=== PATIENT | male | born 1950 | race Caucasian/White ===

== ENCOUNTER → 2020-03-08 10:39 | Outpatient (BNVA) | payer MEDICARE, MEDICAID, SELFPAY | PROVIDERS: PCP Internal Medicine; Visit Provider Internal Medicine | DX: I25.5 Ischemic cardiomyopathy (principal); I25.10 Atherosclerotic heart disease of native coronary artery without angina pectoris; I51.3 Intracardiac thrombosis, not elsewhere classified; I48.0 Paroxysmal atrial fibrillation; I65.23 Occlusion and stenosis of bilateral carotid arteries; I46.9 Cardiac arrest, cause unspecified; Z86.73 Personal history of transient ischemic attack (TIA), and cerebral infarction without residual deficits | CPT/HCPCS: Q3014 ==

== ENCOUNTER → 2020-05-29 15:12 | Outpatient (BNVA) | payer MEDICARE, MEDICAID, SELFPAY | PROVIDERS: PCP Internal Medicine; Visit Provider Internal Medicine | DX: I25.5 Ischemic cardiomyopathy (principal); I25.10 Atherosclerotic heart disease of native coronary artery without angina pectoris; I51.3 Intracardiac thrombosis, not elsewhere classified; I48.0 Paroxysmal atrial fibrillation; I65.23 Occlusion and stenosis of bilateral carotid arteries; I46.9 Cardiac arrest, cause unspecified; Z86.73 Personal history of transient ischemic attack (TIA), and cerebral infarction without residual deficits | CPT/HCPCS: 99212 ==

== ENCOUNTER → 2021-07-09 15:04 | Outpatient (BNVA) | payer MEDICARE, MEDICAID, SELFPAY | PROVIDERS: PCP Internal Medicine; Referring Provider Internal Medicine; Visit Provider Internal Medicine | DX: I25.5 Ischemic cardiomyopathy (principal); I25.10 Atherosclerotic heart disease of native coronary artery without angina pectoris; I51.3 Intracardiac thrombosis, not elsewhere classified; I48.0 Paroxysmal atrial fibrillation; I65.23 Occlusion and stenosis of bilateral carotid arteries; I46.9 Cardiac arrest, cause unspecified; Z86.73 Personal history of transient ischemic attack (TIA), and cerebral infarction without residual deficits | CPT/HCPCS: 93005; 99212 ==

== ENCOUNTER 2021-08-21 10:00 | Outpatient (REF) | payer MEDICARE, MEDICAID, SELFPAY ==
--- NOTE | ~2021-08-21 | US_ITS ---
EXAMINATION: US EXTRACRANIAL CAROTID DUPLEX, BILATERAL CLINICAL INFORMATION: Occlusion and stenosis carotid arteries bilaterally. COMPARISON: 05/02/2019 and studies dating back to 02/09/2018. TECHNIQUE: Real-time ultrasound and Doppler techniques (integrating B-mode 2-D vascular images, Doppler spectral analysis and color-flow Doppler imaging) were utilized to interrogate the extracranial carotid arteries, the vertebral arteries and proximal subclavian arteries bilaterally. The degree of stenosis is determined by criteria similar to NASCET. FINDINGS: RIGHT SIDE: 1. There is heterogeneous calcified shadowing atherosclerotic plaque seen in the bifurcation/proximal ICA region which obscures the proximal internal carotid artery over a 1.4 cm length. 2. The common carotid artery PSV proximally is 75 cm/s and distally 55 cm/s. 3. The mid internal carotid artery velocities are 183 cm/s systolic and 47 cm/s diastolic. The proximal internal carotid artery velocities could not be determined due to the shadowing plaque present. 4. The proximal external carotid artery velocity is 132 cm/s. 5. The vertebral artery is again noted to be occluded. 6. The subclavian artery waveforms are normal. LEFT SIDE: 1. There is mild heterogeneous calcified atherosclerotic plaque seen in the bifurcation/proximal ICA region. 2. The common carotid artery PSV proximally is 134 cm/s and distally 51 cm/s. 3. The proximal internal carotid artery velocities are 49 cm/s systolic and 16 cm/s diastolic. 4. The proximal external carotid artery PSV is 97 cm/s. 5. The vertebral artery shows antegrade flow. 6. The subclavian artery waveforms are normal. US/US carotid duplex BI IMPRESSION: 1. Right: The proximal internal carotid artery is not visible due to shadowing calcified plaque and therefore stenosis is being determined by the mid internal carotid artery velocities which again is seen to fall in the 50-79% stenosis category. 2. Left: Minimal, nonhemodynamically significant stenosis of the proximal left internal carotid artery corresponding to a 0-49% stenosis by velocity criteria. 3. There is no change in the category severity of disease when compared to the previous study dated . 4. Occluded right vertebral artery.
== END 2021-08-21 10:01 | disposition home or self-care (01) ==
LOC: HO.US 10:00
PROVIDERS: Visit Provider Internal Medicine
DX: I65.23 Occlusion and stenosis of bilateral carotid arteries (principal)
CPT/HCPCS: 93880

== ENCOUNTER 2022-08-20 12:36 | Outpatient (REF) | payer MEDICARE, MEDICAID, SELFPAY ==
[2022-08-20 14:39] LABS: Anion Gap 13 (12-20); Blood Urea Nitrogen 16 mg/dL (9-16); Calcium 8.8 mg/dL (8.4-10.2); Carbon Dioxide 26 mmol/L (22-29); Chloride 105 mmol/L (96-108); Estimated Glomerular Filt Rate > 60; Glucose Random 89 mg/dL (60-115); Magnesium 2.3 mg/dL (1.6-2.6); Potassium 4.2 mmol/L (3.3-5.1); Sodium 140 mmol/L (135-145)
[2022-08-20 14:43] LABS: B Type Natriuretic Peptide 205 pg/mL (<100)
== END 2022-08-20 12:37 | disposition home or self-care (01) ==
LOC: HO.LAB 12:36
PROVIDERS: PCP Internal Medicine; Visit Provider Internal Medicine
DX: I25.5 Ischemic cardiomyopathy (principal); I25.10 Atherosclerotic heart disease of native coronary artery without angina pectoris; I51.3 Intracardiac thrombosis, not elsewhere classified; I48.0 Paroxysmal atrial fibrillation; Z86.73 Personal history of transient ischemic attack (TIA), and cerebral infarction without residual deficits; Z86.74 Personal history of sudden cardiac arrest; Z79.899 Other long term (current) drug therapy
CPT/HCPCS: 36415; 80048; 83735; 83880; 93005; 99212

== ENCOUNTER 2022-11-27 14:58 | Outpatient (AMB) | payer MEDICARE, MEDICAID, SELFPAY ==
[2022-11-27 15:10] VITALS: BP 90/50; PULSE 52
--- NOTE | 2022-11-27 15:10 | MHC.OFFVIS ---
Intake Vital Signs 11/27/22 15:10 Height 5 ft 6 in BP 90/50 L Blood Pressure Location Rt brachial Pulse 52 Intake Visit Reasons: 3 mth f/up Pbx Repairer Required: No Discharge Door Operator: Discharge Door Operator Present Allergies Plasma Human Allergy (Unknown, Verified 11/27/22 15:14) unk Medication List - Last Reconciled 11/27/22 by Coco Meléndez, [employer] amiodarone 200 mg PO DAILY atorvastatin 80 mg PO DAILY 90 days baclofen 10 mg PO TID baclofen 20 mg PO TID chlorhexidine gluconate 0.12% mL PO fluticasone propionate 50 mcg/actuation sprays intranasal furosemide 20 mg PO DAILY gabapentin 300 mg PO TID metoprolol succinate ER 50 mg PO BID metoprolol tartrate 50 mg PO BID multivitamin 1 tab PO BID rivaroxaban (Xarelto) 20 mg PO QAM 90 days sacubitril-valsartan 24-26 mg (Entresto) 1 tab PO BID 90 days tamsulosin 0.4 mg PO DAILY trazodone 50 mg PO BEDTIME HPI 3 mth f/up HPI Details Aníbal is a 72-year-old male with past medical history of stroke 2010 and found to have LV thrombus at that time. He was started on anticoagulation then had GI bleed. During transfusions he had VF arrest and was resuscitated. More [place] [facility] [place] and did have VF arrest. Cardiac catheterization was then done showing significant coronary artery disease which was managed medically. He has hyperlipidemia, carotid stenosis, residual ischemic cardiomyopathy and PAF. Today he reports that he has been doing generally well since his last visit in July. He denies any concerning symptoms. He has left-sided weakness from his remote CVA. He tells me his left shoulder is dislocated knee is wearing a brace to hold it in place. He denies much discomfort. He denies chest discomfort at rest or with activity. He is mostly sedentary but tells me he is able to walk some with assistive device. His breathing is comfortable at rest. No palpitations, presyncope, syncope, falls. No PND, orthopnea or edema. No bleeding issues reported. He takes all meds as directed. [facility] Medical History Cardiac arrest Bilateral carotid artery stenosis History of stroke PAF (paroxysmal atrial fibrillation) LV (left ventricular) mural thrombus Atherosclerotic cardiovascular disease Ischemic cardiomyopathy Surgical History History of appendectomy Family History Father No problems noted. Mother No problems noted. Social History Patient Tobacco Use Status: Never used Tobacco Review of Systems Const All systems reviewed & are unremarkable except as noted in HPI and below ENT Denies dizziness Card Denies chest pain, Denies chest pain at rest, Denies chest pain with activity, Denies rapid heart rate, Denies pedal edema, Denies edema, Denies leg edema, Denies lightheadedness, Denies palpitations, Denies dyspnea, Reports dyspnea on exertion and Denies orthopnea Resp Denies cough, Denies dyspnea and Reports dyspnea on exertion GI Denies hematochezia and Denies change in stool character Musc Reports abnormal gait, Reports limited range of motion, Denies muscle cramps, Reports muscle weakness, Denies numbness, Denies radiating pain into limb, Denies stiffness and Denies tingling Neuro Reports abnormal gait, Denies dizziness, Denies numbness and Denies tingling Endo Denies palpitations Physical Exam Vital Signs: Last Vital Signs Pulse 52 11/27/22 15:10 Const Other: Frail elderly male sitting in a wheelchair, left side paralysis General: cooperative, comfortable and no acute distress Orientation/consciousness: patient oriented x3 Neck Neck: Yes normal visual inspection Resp Effort & Inspection: normal respiratory effort Auscultation: clear to auscultation bilaterally, no crackles, no rhonchi and no wheezes Cardio Other: Heart tones distant Jugular venous distension: no JVD Rate: regular rate Rhythm: regular rhythm Heart sounds: no murmurs Neuro General: patient oriented x3 Extrem Other: Left-sided paralysis, in wheelchair, brace on left forearm and hand, support brace to left shoulder General: No no pedal edema Psych Appearance: grossly normal Mental Status: mental status grossly normal Speech and movement: Normal speech and movement present Office Procedures EKG Details: Today, read by me, sinus bradycardia with first-degree AV block, possible RV hypertrophy, low voltage QRS, no change from prior EKG, rate 52, QTC 444 millisecond [id number], Complete Assessment & Plan Assessment & Plan (1) Atherosclerotic cardiovascular disease: Code(s): I25.10 - Atherosclerotic heart disease of [place] coronary artery without angina pectoris Plan: History of CAD. Recent VF arrest while at [facility] undergoing treatment for UTI. A cardiac catheterization was done on 07/11/2022 showing to fuse coronary artery disease, not well suited for PCI. Also felt to be a poor clinical candidate for coronary artery bypass grafting. Plan is to continue with medical management. He is currently denying any anginal sounding symptoms. He is mostly sedentary. His EKG done today is showing sinus bradycardia with first-degree AV block, low voltage QRS, rate 52. No significant change from prior EKG 08/20/2022. Will continue on high-dose atorvastatin with LDL goal less than 70. Continue metoprolol. He is not on aspirin as he is on Xarelto. Signs and symptoms of angina reviewed with him and he states understanding. Cardiology follow-up in 3-4 months, sooner if needed. (2) Sinus bradycardia: Code(s): R00.1 - Bradycardia, unspecified Plan: Noted on EKG today, no significant change from prior. He denies any lightheadedness or accessed weakness. He is on metoprolol XL 50 mg b.i.d. which can be continued. (3) Cardiac arrest: Code(s): I46.9 - Cardiac arrest, cause unspecified Plan: History of VF arrest in 2010 following transfusion reaction. Successfully resuscitated. Second [place] [facility] [place] for [place], electrolyte abnormalities. Successfully resuscitated. Cardiac catheterization showing diffuse coronary artery disease which will be managed medically. He was seen by the toolroom keeper who did not feel he was a good candidate for ICD placement. EKG done today showing QTC 444 milliseconds. (4) History of stroke: Code(s): Z86.73 - Personal history of transient ischemic attack (TIA), and cerebral infarction without residual deficits Plan: CVA 2010 with left-sided weakness related to LV thrombus. He was started on anticoagulation at that time. Most recent echo is not showing any LV thrombus (5) LV (left ventricular) mural thrombus: Code(s): I51.3 - Intracardiac thrombosis, not elsewhere classified Plan: Resolved. He continues on anticoagulation for PAF history (6) PAF (paroxysmal atrial fibrillation): Code(s): I48.0 - Paroxysmal atrial fibrillation Plan: History of paroxysmal atrial fibrillation. Being treated with rhythm control. Currently on amiodarone 200 mg daily metoprolol XL 50 mg b.i.d.. EKG today showing sinus bradycardia, first-degree AV block, rate 52. He denies any recent heart palpitations. He is on Xarelto for anticoagulation. No bleeding issues reported. Labs from 08/20/2022 showed potassium 4.2, creatinine 1.04, magnesium 2.3. Will check labs for amiodarone monitoring. (7) Ischemic cardiomyopathy: Code(s): I25.5 - Ischemic cardiomyopathy Plan: History of CAD and ischemic cardiomyopathy. Most recent echo showing EF 15-20%, with wall motion abnormality. On examination today he does not appear fluid overloaded. Will have him continue on low-dose Lasix. Continue metoprolol XL and Entresto for neurohormonal modulation. Recommend labs twice yearly. Blood pressure is on the low side, asymptomatic. No med changes made Orders: Orders TSH reflex Free T4 2 Months I48.0 - Paroxysmal atrial fibrillation Comprehensive Met. Panel 2 Months I48.0 - Paroxysmal atrial fibrillation Coding Level of Care Code Est Pt Level 4 (41689) Diagnoses Atherosclerotic cardiovascular disease I25.10 Sinus bradycardia R00.1 Cardiac arrest I46.9 History of stroke Z86.73 LV (left ventricular) mural thrombus I51.3 PAF (paroxysmal atrial fibrillation) I48.0 Ischemic cardiomyopathy I25.5 CPT Codes EKG - CPT: 43429-[id number], Complete ([id number]) Time Spent (min) 28
== END 2022-11-27 15:47 | disposition home or self-care (01) ==
PROVIDERS: PCP Internal Medicine; Visit Provider Nurse Practitioner Family
DX: I25.10 Atherosclerotic heart disease of native coronary artery without angina pectoris (principal); R00.1 Bradycardia, unspecified; I46.9 Cardiac arrest, cause unspecified; Z86.73 Personal history of transient ischemic attack (TIA), and cerebral infarction without residual deficits; I51.3 Intracardiac thrombosis, not elsewhere classified; I48.0 Paroxysmal atrial fibrillation; I25.5 Ischemic cardiomyopathy
CPT/HCPCS: 93010; 99214

== ENCOUNTER → 2022-11-27 14:58 | Outpatient (BNVA) | payer MEDICARE, MEDICAID, SELFPAY | PROVIDERS: PCP Internal Medicine; Visit Provider Nurse Practitioner Family | DX: I25.10 Atherosclerotic heart disease of native coronary artery without angina pectoris (principal); R00.1 Bradycardia, unspecified; I48.0 Paroxysmal atrial fibrillation; I25.5 Ischemic cardiomyopathy; Z79.01 Long term (current) use of anticoagulants; Z79.899 Other long term (current) drug therapy; Z86.73 Personal history of transient ischemic attack (TIA), and cerebral infarction without residual deficits; Z86.74 Personal history of sudden cardiac arrest | CPT/HCPCS: 93005; 99212 ==

== ENCOUNTER 2023-02-26 15:54 | Outpatient (AMB) | payer MEDICARE, MEDICAID, SELFPAY ==
--- NOTE | 2023-02-26 16:03 | A.OFFVIS_ITS ---
Intake Vital Signs 02/26/23 16:04 Height 5 ft 6 in BP 100/50 L Blood Pressure Location Rt brachial Position Sitting Pulse 52 Pulse Source Monitor Intake Visit Reasons: 3 month follow up Allergies Plasma Human Allergy (Unknown, Verified 02/26/23 16:05) unk HPI 3 month follow up HPI Details Aníbal is a 72-year-old male with past medical history of stroke 2010 and found to have LV thrombus at that time. He was started on anticoagulation then had GI bleed. During transfusions he had VF arrest and was resuscitated. More [place] [facility] [place], [place] abnormalities and did have VF arrest with successful resuscitation. Cardiac catheterization was then done showing significant coronary artery disease which was managed medically. He was deemed not a good candidate for ICD, PCI or Coronary artery bypass grafting. He has hyperlipidemia, carotid stenosis, residual ischemic cardiomyopathy and PAF. Today he reports that he has been doing well since his last visit in October. He denies any concerning symptoms. He has left-sided weakness from his remote CVA. He tells me his left shoulder is dislocated knee is wearing a brace to hold it in place. He denies much discomfort. He denies chest discomfort at rest or with activity. He is mostly sedentary and uses wheelchair. His breathing is comfortable at rest. No palpitations, presyncope, syncope, falls. No PND, orthopnea or edema. No bleeding issues reported. He takes all meds as directed. Staff memeber from his living facility present. [facility] Medical History Cardiac arrest Bilateral carotid artery stenosis History of stroke PAF (paroxysmal atrial fibrillation) LV (left ventricular) mural thrombus Atherosclerotic cardiovascular disease Ischemic cardiomyopathy Surgical History History of appendectomy Family History Father No problems noted. Mother No problems noted. Social History Patient Tobacco Use Status: Never used Tobacco Review of Systems Const All systems reviewed & are unremarkable except as noted in HPI and below ENT Denies dizziness Card Denies chest pain, Denies chest pain at rest, Denies chest pain with activity, Denies rapid heart rate, Denies pedal edema, Denies edema, Denies leg edema, Denies lightheadedness, Denies palpitations, Denies dyspnea, Denies dyspnea on exertion and Denies orthopnea Resp Denies cough, Denies dyspnea and Denies dyspnea on exertion GI Denies hematochezia and Denies change in stool character Musc Details: left weakness Reports abnormal gait, Reports limited range of motion, Reports muscle weakness, Denies numbness, Denies radiating pain into limb, Denies stiffness and Denies tingling Neuro Reports abnormal gait, Denies dizziness, Denies numbness and Denies tingling Endo Denies palpitations Physical Exam Const General: cooperative, healthy appearing, comfortable and no acute distress Orientation/consciousness: patient oriented x3 Neck Neck: Yes normal visual inspection Resp Effort & Inspection: normal respiratory effort Auscultation: clear to auscultation bilaterally, no crackles, no rales, no rhonchi and no wheezes Cardio Jugular venous distension: no JVD Rate: regular rate Rhythm: regular rhythm Heart sounds: S1 normal heart sound present, S2 normal heart sound present, no murmurs and no rubs Neuro General: patient oriented x3 Extrem General: Yes normal to inspection and No no pedal edema Psych Appearance: grossly normal Mental Status: mental status grossly normal Speech and movement: Normal speech and movement present Office Procedures EKG Details: Today, read by me, sinus bradycardia, first-degree AV block, incomplete right bundle branch block, inferior Q-waves, can not exclude anterior lateral infarct, low-voltage QRS, JT index 117, mildly prolonged, rate 52 [id number], Complete Assessment & Plan Assessment & Plan (1) Atherosclerotic cardiovascular disease: Code(s): I25.10 - Atherosclerotic heart disease of [place] coronary artery without angina pectoris Plan: History of CAD. Recent VF arrest while at [facility] undergoing treatment for UTI. A cardiac catheterization was done on 07/11/2022 showing severe diffuse coronary artery disease, not well suited for PCI. Also felt to be a poor clinical candidate for coronary artery bypass grafting. Plan is to continue with medical management. He is currently denying any anginal sounding symptoms. He is mostly sedentary. His EKG done today is showing sinus bradycardia with first-degree AV block, low voltage QRS, rate 52 -no significant change from last EKG. Will continue on high-dose atorvastatin with LDL goal less than 70. Continue metoprolol. He is not on aspirin as he is on Xarelto. Signs and symptoms of angina reviewed with him and he states understanding. Checking labs today including CMP, CBC, BNP and TSH. Plan to call him for any significant abnormalities. Cardiology follow-up in 6 months, sooner if needed. (2) Sinus bradycardia: Code(s): R00.1 - Bradycardia, unspecified Plan: Noted on EKG today, no significant change from prior. He denies any lightheadedness or accessed weakness. He is on metoprolol XL 50 mg b.i.d. which can be continued. (3) Cardiac arrest: Code(s): I46.9 - Cardiac arrest, cause unspecified Plan: History of VF arrest in 2010 following transfusion reaction. Successfully resuscitated. [place] [facility] [place] for [place], electrolyte abnormalities. Successfully resuscitated. Cardiac catheterization showing diffuse coronary artery disease which will be managed medically. He was seen by the senior copywriter who did not feel he was a good candidate for ICD placement. EKG done today showing JT index 117, which is prolonged. Checking labs as above. He is on amiodarone which can prolong QT interval however he needs this medication to help prevent VF. (4) History of stroke: Code(s): Z86.73 - Personal history of transient ischemic attack (TIA), and cerebral infarction without residual deficits Plan: CVA 2010 with left-sided weakness related to LV thrombus. He was started on anticoagulation at that time. Most recent echo is not showing any LV thrombus (5) LV (left ventricular) mural thrombus: Code(s): I51.3 - Intracardiac thrombosis, not elsewhere classified Plan: Resolved. He continues on anticoagulation for PAF history (6) PAF (paroxysmal atrial fibrillation): Code(s): I48.0 - Paroxysmal atrial fibrillation Plan: History of paroxysmal atrial fibrillation. Being treated with rhythm control. Currently on amiodarone 200 mg daily metoprolol XL 50 mg b.i.d.. EKG today showing sinus bradycardia, first-degree AV block, rate 52. He denies any recent heart palpitations. He is on Xarelto for anticoagulation. No bleeding issues reported. Labs from 08/20/2022 showed potassium 4.2, creatinine 1.04, magnesium 2.3. Will check labs for amiodarone monitoring. (7) Ischemic cardiomyopathy: Code(s): I25.5 - Ischemic cardiomyopathy Plan: History of CAD and ischemic cardiomyopathy. Most recent echo showing EF 15-20%, with wall motion abnormality. On examination today he does not appear fluid overloaded. Will have him continue on low-dose Lasix. Continue metoprolol XL and Entresto for neurohormonal modulation. Recommend labs twice yearly. Blood pressure is on the low side, asymptomatic. No med changes made Plan Time spent on chart review, documentation, interview and assessment Orders: Orders Complete Blood Count Auto Diff Today I48.0 - Paroxysmal atrial fibrillation B Type Natriuretic Peptide Today I25.5 - Ischemic cardiomyopathy Coding Level of Care Code Est Pt Level 4 (15822) Diagnoses Atherosclerotic cardiovascular disease I25.10 Sinus bradycardia R00.1 Cardiac arrest I46.9 History of stroke Z86.73 LV (left ventricular) mural thrombus I51.3 PAF (paroxysmal atrial fibrillation) I48.0 Ischemic cardiomyopathy I25.5 CPT Codes EKG - CPT: [id number], Complete ([id number]) Time Spent (min) 28
[2023-02-26 16:04] VITALS: BP 100/50; PULSE 52
== END 2023-02-26 16:33 | disposition home or self-care (01) ==
LOC: HO.HCS 15:54
PROVIDERS: PCP Internal Medicine; Visit Provider Nurse Practitioner Family
DX: I25.10 Atherosclerotic heart disease of native coronary artery without angina pectoris (principal); R00.1 Bradycardia, unspecified; I46.9 Cardiac arrest, cause unspecified; Z86.73 Personal history of transient ischemic attack (TIA), and cerebral infarction without residual deficits; I51.3 Intracardiac thrombosis, not elsewhere classified; I48.0 Paroxysmal atrial fibrillation; I25.5 Ischemic cardiomyopathy
CPT/HCPCS: 93010; 99214

== ENCOUNTER 2023-02-26 15:54 | Outpatient (REF) | payer MEDICARE, MEDICAID, SELFPAY ==
[2023-02-26 16:47] LABS: MANUAL DIFF FLAG NO
[2023-02-26 17:16] LABS: Basophils Absolute Auto 0.1 X10*3/uL (0.0-0.2); Basophils Percent Auto 0.7 % (0-2); Eosinophils Absolute Auto 0.2 X10*3/uL (0.0-0.4); Eosinophils Percent Auto 2.2 % (0-4); Hematocrit 39.5 % (42.0-52.0); Hemoglobin 13.2 g/dl (14.0-18.0); Imm Gran Abs Auto 0.05 X10*3/uL (0.00-0.03); Imm Gran Pct Auto 0.7 % (0.0-0.4); Lymphocytes Absolute Auto 1.9 X10*3/uL (1.2-4.9); Lymphocytes Percent Auto 24.6 % (20-40); Mean Corpuscular HGB Conc 33.4 g/dl (31.0-36.0); Mean Corpuscular Hemoglobin 33.1 pg (27.0-33.0); Mean Platelet Volume 10.1 fL (9.4-12.4); Monocytes Absolute Auto 0.6 X10*3/uL (0.1-1.2); Neutrophils Absolute Auto 4.9 x10*3/uL (2.0-8.3); Neutrophils Percent Auto 63.8 % (45-73); Platelet Count 250 X10*3/uL (160-400); Red Blood Count 3.99 X10*6/uL (4.60-5.80); Red Cell Distribution Width 15.9 % (11.0-16.0); White Blood Count 7.6 X10*3/uL (4.8-10.8)
[2023-02-26 17:38] LABS: B Type Natriuretic Peptide 338 pg/mL (<100)
[2023-02-26 17:45] LABS: Alanine Aminotransferase 19 U/L (0-40); Albumin Level 3.4 g/dL (3.5-5.0); Alkaline Phosphatase 64 U/L (39-117); Anion Gap 13 (12-20); Aspartate Amino Transferase 18 U/L (5-37); Bilirubin Total 0.3 mg/dL (0.0-1.0); Blood Urea Nitrogen 16 mg/dL (9-16); Calcium 8.8 mg/dL (8.4-10.2); Carbon Dioxide 28 mmol/L (22-29); Chloride 102 mmol/L (96-108); Estimated Glomerular Filt Rate 59; Glucose Random 87 mg/dL (60-115); Potassium 4.5 mmol/L (3.3-5.1); Sodium 138 mmol/L (135-145)
[2023-02-26 18:03] LABS: TSH reflex Free T4 2.42 uIU/mL (0.32-4.0)
== END 2023-02-26 15:55 | disposition home or self-care (01) ==
LOC: HO.LAB 15:54
PROVIDERS: PCP Internal Medicine; Visit Provider Nurse Practitioner Family
DX: I48.0 Paroxysmal atrial fibrillation (principal); I25.5 Ischemic cardiomyopathy; I25.10 Atherosclerotic heart disease of native coronary artery without angina pectoris; I46.9 Cardiac arrest, cause unspecified; R00.1 Bradycardia, unspecified; I51.3 Intracardiac thrombosis, not elsewhere classified; I69.354 Hemiplegia and hemiparesis following cerebral infarction affecting left non-dominant side
CPT/HCPCS: 36415; 80053; 83880; 84443; 85025; 93005; 99212

== ENCOUNTER 2023-10-14 12:28 | Outpatient (AMB) | payer MEDICARE, MEDICAID, SELFPAY ==
[2023-10-14 12:32] VITALS: BP 90/50; PULSE 50
--- NOTE | 2023-10-14 12:32 | A.OFFVIS_ITS ---
Vital Signs 10/14/23 12:32 Height 5 ft 6 in BMI Reason not done Patient refused/unable BP 90/50 L Blood Pressure Location Rt brachial Position Sitting Pulse 50 Intake Visit Reasons: 6 month f/u Equipment Installation Professional Required: No Automotive Refinisher: Automotive Refinisher Present Accompanied by: Other Relationship Allergies Plasma Human Allergy (Unknown, Verified 02/26/23 16:05) unk Medication List - Last Reconciled 10/14/23 by Audi Goddard MD acetaminophen ER (Tylenol Arthritis Pain) 650 mg PO ONCE PRN amiodarone 200 mg PO DAILY atorvastatin 80 mg PO DAILY 90 days baclofen 10 mg PO TID chlorhexidine gluconate 0.12% mL PO docusate sodium (Colace) 100 mg PO BID fluticasone propionate 50 mcg/actuation sprays intranasal furosemide (Lasix) 20 mg PO BID gabapentin 300 mg PO TID loratadine (Claritin) 10 mg PO DAILY PRN metoprolol tartrate 50 mg PO BID multivitamin 1 tab PO BID rivaroxaban (Xarelto) 20 mg PO QAM sacubitril-valsartan 24-26 mg (Entresto) 1 tab PO BID 90 days tamsulosin 0.8 mg PO DAILY trazodone 50 mg PO BEDTIME HPI Comments Details: Aníbal returns for follow-up. To recall, he has a very complex cardiac history. He had a stroke in 2010. At that time, echocardiogram had revealed LV apical thrombus. He was on anticoagulation with warfarin. Then was rehospitalized a few months later at [facility] [place] GI bleeding while on warfarin. In that context, he underwent transfusions following which he developed ventricular fibrillation and cardiac arrest. Then successfully resuscitated. In 2022, another hospitalization at [facility]. It seems that he had hospitalization for UTI symptoms and in that context had metabolic abnormalities. Subsequently, had VFib arrest. Then successfully resuscitated and he underwent cardiac catheterization showing significant CAD as well as cardiomyopathy. Any case, he felt to be a poor candidate for anything and hence just treated conservatively. Since last seen, he states he is feeling just about the same. No further hospitalizations or any cardiac symptoms. [facility] Medical History Cardiac arrest Bilateral carotid artery stenosis History of stroke PAF (paroxysmal atrial fibrillation) LV (left ventricular) mural thrombus Atherosclerotic cardiovascular disease Ischemic cardiomyopathy Surgical History History of appendectomy Family History Father No problems noted. Mother No problems noted. Social History Alcohol intake: never Patient Tobacco Use Status: Never used Tobacco Review of Systems Const Denies chills, Denies fatigue, Denies fever(s), Denies weight gain and Denies weight loss ENT Denies dizziness Card Denies chest pain, Denies leg edema, Denies lightheadedness, Denies palpitations, Denies dyspnea on exertion, Denies orthopnea and Denies other Resp Denies cough and Denies dyspnea on exertion GI Denies hematochezia and Denies change in stool character Musc Denies abnormal gait, Denies muscle weakness, Denies numbness, Denies radiating pain into limb and Denies tingling Neuro Denies abnormal gait, Denies dizziness, Denies numbness and Denies tingling Endo Denies fatigue and Denies palpitations Physical Exam Vital Signs: Last Vital Signs Pulse 50 10/14/23 12:32 BP 90/50 L 10/14/23 12:32 Const General: comfortable and no acute distress Orientation/consciousness: patient oriented x3 HEENT Other: Unremarkable Head: Yes normal to inspection Neck Neck: Yes normal visual inspection Chest Chest palpation & inspection: normal inspection of the chest Resp Auscultation: clear to auscultation bilaterally Cardio Palpation: normal PMI Heart sounds: S1 normal heart sound present, S2 normal heart sound present, no gallops, no murmurs and no rubs GI Palpation (GI): Soft to palpation Back/Spine/Pelvis Other: unremarkable Skin General skin exam: no rashes or lesions noted Neuro General: patient oriented x3 Extrem General: Yes normal to inspection Psych Mental Status: mental status grossly normal Office Procedures EKG Details: EKG with sinus bradycardia, 50/Min; old inferior infarct and anterolateral infarct; top [place]. [id number], Complete Assessment & Plan Assessment & Plan (1) Ischemic cardiomyopathy: Code(s): I25.5 - Ischemic cardiomyopathy Category: Medical Plan: Last echocardiogram from [facility]- LVEF 15-20% including several wall motion abnormalities. Clinically, he does not have any clear heart failure symptoms or signs. Can remain on the current regimen which is fairly reasonable considering his comorbidities. Beta-blockers, Entresto, furosemide. Blood pressure is already low. Do not think he can tolerate anything further-like spironolactone or Farxiga. (2) Atherosclerotic cardiovascular disease: Code(s): I25.10 - Atherosclerotic heart disease of [place] coronary artery without angina pectoris Category: Medical Plan: Cardiac catheterization from 06/2022 shows severe diffuse coronary disease not suitable for PCI and also poor candidate for CABG. Hence more medical therapy only. He does not have any angina. Continue beta-blockers and statins. (3) LV (left ventricular) mural thrombus: Code(s): I51.3 - Intracardiac thrombosis, not elsewhere classified Category: Medical Plan: This was documented on echocardiogram in 2010. Most recent study with no residual thrombus. (4) PAF (paroxysmal atrial fibrillation): Code(s): I48.0 - Paroxysmal atrial fibrillation Category: Medical Plan: In sinus rhythm. Continue anticoagulation. (5) Cardiac arrest: Code(s): I46.9 - Cardiac arrest, cause unspecified Category: Medical Plan: He has had ventricular fibrillation 2010 suspected to be from a transfusion reaction. More recently another episode in the setting of electrolyte abnormalities. Again resuscitated. He remains on amiodarone. Already, seen by EP who did not think he is a good ICD candidate. Last TSH within normal limits. Plan Will request labs from PCP. Coding Level of Care Code Est Pt Level 4 (54390) Diagnoses Ischemic cardiomyopathy I25.5 Atherosclerotic cardiovascular disease I25.10 LV (left ventricular) mural thrombus I51.3 PAF (paroxysmal atrial fibrillation) I48.0 Cardiac arrest I46.9 CPT Codes EKG - CPT: 90765-[id number], Complete ([id number])
== END 2023-10-14 13:14 | disposition home or self-care (01) ==
PROVIDERS: PCP Internal Medicine; Visit Provider Internal Medicine
DX: I25.5 Ischemic cardiomyopathy (principal); I25.10 Atherosclerotic heart disease of native coronary artery without angina pectoris; I51.3 Intracardiac thrombosis, not elsewhere classified; I48.0 Paroxysmal atrial fibrillation; I46.9 Cardiac arrest, cause unspecified
CPT/HCPCS: 93010; 99214

== ENCOUNTER → 2023-10-14 12:28 | Outpatient (BNVA) | payer MEDICARE, MEDICAID, SELFPAY | PROVIDERS: PCP Internal Medicine; Visit Provider Internal Medicine | DX: I25.5 Ischemic cardiomyopathy (principal); I25.10 Atherosclerotic heart disease of native coronary artery without angina pectoris; I51.3 Intracardiac thrombosis, not elsewhere classified; I48.0 Paroxysmal atrial fibrillation; Z86.73 Personal history of transient ischemic attack (TIA), and cerebral infarction without residual deficits; Z79.01 Long term (current) use of anticoagulants; Z86.74 Personal history of sudden cardiac arrest | CPT/HCPCS: 93005; 99212 ==

== ENCOUNTER 2024-12-22 10:54 | Outpatient (AMB) | payer MEDICARE, MEDICAID, SELFPAY ==
--- NOTE | 2024-12-22 11:04 | MHC.OFFVIS ---
Vital Signs 12/22/24 11:11 BP 90/60 Blood Pressure Location Rt brachial Position Sitting Pulse 76 Pulse Source Monitor Intake Visit Reasons: fu / med refills Ultrasound Specialist Required: No Electronic Industrial Controls Mechanic: Electronic Industrial Controls Mechanic Present Accompanied by: Self / Same As Patient Allergies Plasma Human Allergy (Unknown, Verified 02/26/23 16:05) unk Medication List - Last Reconciled 12/22/24 by Audi Goddard MD acetaminophen ER (Tylenol Arthritis Pain) 650 mg PO ONCE PRN baclofen 10 mg PO TID chlorhexidine gluconate 0.12% mL PO dapagliflozin propanediol (Farxiga) 10 mg PO DAILY docusate sodium (Colace) 100 mg PO BID ezetimibe (Zetia) 10 mg PO DAILY furosemide (Lasix) 20 mg PO BID gabapentin 400 mg PO TID loratadine (Claritin) 10 mg PO DAILY PRN mexiletine 300 mg PO Q8H multivitamin 1 tab PO BID rivaroxaban (Xarelto) 20 mg PO QAM sacubitril-valsartan 24-26 mg (Entresto) 1 tab PO BID 90 days spironolactone 25 mg PO DAILY HPI Comments Details: Aníbal returns for follow-up. To recall, he has a very complex cardiac history. He had a stroke in 2010. At that time, echocardiogram had revealed LV apical thrombus. He was on anticoagulation with warfarin. Then was rehospitalized a few months later at [facility] for GI bleeding while on warfarin. In that context, he underwent transfusions following which he developed ventricular fibrillation and cardiac arrest. Then successfully resuscitated. In 2022, another hospitalization at [facility]. He had hospitalization for UTI symptoms and in that context had metabolic abnormalities. Subsequently, had VFib arrest. Then successfully resuscitated and he underwent cardiac catheterization showing significant CAD as well as cardiomyopathy. Any case, he felt to be a poor candidate for anything and hence just treated conservatively. Over the last year or so, he has had numerous hospitalizations to [facility]. Very difficult to put all this together but from what I can gather, he was seen by EP and it seems that there was question of pulmonary infiltrates and hence amiodarone was stopped and mexiletine was started. Currently, he states he is generally feeling okay. No specific cardiac symptoms. [facility] Medical History Cardiac arrest Bilateral carotid artery stenosis History of stroke PAF (paroxysmal atrial fibrillation) LV (left ventricular) mural thrombus Atherosclerotic cardiovascular disease Ischemic cardiomyopathy Surgical History History of appendectomy Family History Father No problems noted. Mother No problems noted. Social History Alcohol intake: never Patient Tobacco Use Status: Never used Tobacco Review of Systems Const Denies chills, Denies fatigue, Denies fever(s), Denies frequent falls, Denies weakness, Denies weight gain and Denies weight loss ENT Denies dizziness Card Denies chest pain, Denies leg edema, Denies lightheadedness, Denies palpitations, Denies dyspnea and Denies dyspnea on exertion Resp Denies cough, Denies dyspnea and Denies dyspnea on exertion GI Denies hematochezia Musc Denies abnormal gait, Denies muscle weakness, Denies numbness, Denies radiating pain into limb and Denies tingling Neuro Denies abnormal gait, Denies dizziness, Denies frequent falls, Denies numbness, Denies tingling and Denies weakness Endo Denies fatigue and Denies palpitations Physical Exam Vital Signs: Last Vital Signs Pulse 76 12/22/24 11:11 BP 90/60 12/22/24 11:11 Const General: comfortable and no acute distress Orientation/consciousness: patient oriented x3 HEENT Other: Unremarkable Head: Yes normal to inspection Neck Neck: Yes normal visual inspection Chest Chest palpation & inspection: normal inspection of the chest Resp Auscultation: clear to auscultation bilaterally Cardio Palpation: normal PMI Heart sounds: S1 normal heart sound present, S2 normal heart sound present, no gallops, no murmurs and no rubs GI Palpation (GI): Soft to palpation Back/Spine/Pelvis Other: unremarkable Skin General skin exam: no rashes or lesions noted Neuro General: patient oriented x3 Extrem General: Yes normal to inspection Psych Mental Status: mental status grossly normal Office Procedures EKG Details: EKG with underlying sinus rhythm at 76/Min; right bundle-branch block pattern; old inferior infarct. cannot exclude anterolateral infarct; borderline AK prolongation to 208 milliseconds; corrected QT is 490 milliseconds. [id number], Complete Assessment & Plan Assessment & Plan (1) Ischemic cardiomyopathy: Code(s): I25.5 - Ischemic cardiomyopathy Category: Medical Plan: Several hospitalizations and med changes at [facility]. Nothing further made today. In the most recent echocardiogram from July, LVEF 39% with wall motion abnormalities from underlying coronary disease. No significant valvular findings. (2) Atherosclerotic cardiovascular disease: Code(s): I25.10 - Atherosclerotic heart disease of [place] coronary artery without angina pectoris Category: Medical Plan: Cardiac catheterization from 06/2022 shows severe diffuse coronary disease not suitable for PCI and also poor candidate for CABG. Hence more medical therapy only. He does not have any angina. Wall was on statins in the past but currently listed to be on Zetia. (3) LV (left ventricular) mural thrombus: Code(s): I51.3 - Intracardiac thrombosis, not elsewhere classified Category: Medical Plan: This was documented on echocardiogram in 2010. No recent issues in this regard. (4) PAF (paroxysmal atrial fibrillation): Code(s): I48.0 - Paroxysmal atrial fibrillation Category: Medical Plan: In sinus rhythm. Continue anticoagulation. (5) Cardiac arrest: Code(s): I46.9 - Cardiac arrest, cause unspecified Category: Medical Plan: He has had ventricular fibrillation 2010 suspected to be from a transfusion reaction. Then another episode in the setting of electrolyte abnormalities. Again resuscitated. He was on amiodarone but it seems he was switched to mexiletine by EP. With regard to further management, should follow up with EP, Dr. Akers from [facility]. Plan Due to numerous hospitalizations at [facility] and inpatient management generally through [facility] and PCP being at [place], and not being up-to-date with regular developments and med changes, labs etc., recommend that patient consolidate all his medical care through [place] and switches to [facility]. Message sent to Dr. Akers by [place] text. Total time spent including review of [facility] records, counseling, documentation, coordination of care-60 minutes. Coding Level of Care Code Est Pt Level 5 (64847) Complex EM visit Add On G2211 Diagnoses Ischemic cardiomyopathy I25.5 Atherosclerotic cardiovascular disease I25.10 LV (left ventricular) mural thrombus I51.3 PAF (paroxysmal atrial fibrillation) I48.0 Cardiac arrest I46.9 CPT Codes EKG - CPT: 84291-[id number], Complete ([id number])
[2024-12-22 11:11] VITALS: BP 90/60; PULSE 76
--- OUTSIDE RECORDS SUMMARY | 2024-12-22 13:28 | XMS_ITS | Encounter Summary ---
Author Organization [facility] Address [address] [place] [id number] Care Team Providers Care Crm Campaign Manager Name Role Phone Fidel Davis MD Primary Care Provider [phone] Encounter Details Date Type Department Care Team (Late Contact Info) Description 03/03/2024 Lab Requisition [facility] - Main Lab [address] [facility] [place] [id number] Jono Mao MD [address] [place], [place] [id number] Unspecified diastolic (congestive) heart failure (CMS/HCC V24, CMS/HCC V28); Acute kidney failure, unspecified (CMS/HCC V24); Pneumonitis due to inhalation of food and vomit (CMS/HCC V24, CMS/HCC V28); Paroxysmal atrial fibrillation ([facility] V24, [facility]/HCC V28) Social History Tobacco Use Types Packs/Day Years Used Date Smoking Tobacco: Former Cigarettes Smokeless Tobacco: Never Alcohol Use Standard Drinks/Week Comments Not Currently 0 (1 standard drink = 0.6 oz pur e alcohol) Sex and Gender Information Value Date Recorded Sex Assigned at Not on file Legal Sex Male 9:47 PM EST Gender Identity Not on file Sexual Orientation Not on file documented as of this encounter Plan of Treatment Upcoming Encounters Date Type Department Care Team (Late Contact Info) Description 05/23/2025 4:00 PM EDT Office Visit Adult Medicine [address] [phone] Fidel Davis MD [address] [place] [address] documented as of this encounter Procedures Procedure Name Priority Date/Time Associated Diagnosis Comments PROTHROMBIN TIME WITH INR Routine 03/03/2024 5:18 AM EST Unspecified diastolic (congestive) heart failure (CMS/HCC) Acute kidney failure, unspecified (CMS/HCC) Pneumonitis due to inhalation of food and vomit (CMS/HCC) Paroxysmal atrial fibrillation (CMS/HCC) COMPLETE BLOOD COUNT Routine 03/03/2024 5:18 AM EST Unspecified diastolic (congestive) heart failure (CMS/HCC) Acute kidney failure, unspecified (CMS/HCC) Pneumonitis due to inhalation of food and vomit (CMS/HCC) Paroxysmal atrial fibrillation (CMS/HCC) COMPREHENSIVE METABOLIC PANEL Routine 03/03/2024 5:18 AM EST Unspecified diastolic (congestive) heart failure (CMS/HCC) Acute kidney failure, unspecified (CMS/HCC) Pneumonitis due to inhalation of food and vomit (CMS/HCC) Paroxysmal atrial fibrillation (CMS/HCC) documented in this encounter Results * (ABNORMAL) Comprehensive metabolic panel (03/03/2024 5:18 AM EST) Sodium 137 133 - 145 mmol/L LAB CHEMISTRY METHOD 03/03/2024 12:42 PM [facility] Potassium 5.1 3.5 - 5.5 mmol/L LAB CHEMISTRY METHOD 03/03/2024 12:42 PM [facility] Chloride 103 96 - 110 mmol/L LAB CHEMISTRY METHOD 03/03/2024 12:42 PM [facility] CO2 30 21 - 32 mmol/L LAB CHEMISTRY METHOD 03/03/2024 12:42 PM [facility] Anion Gap 4 3 - 11 LAB CHEMISTRY METHOD 03/03/2024 12:42 PM [facility] Glucose 74 70 - 100 mg/dL LAB CHEMISTRY METHOD 03/03/2024 12:42 PM [facility] BUN 21 5 - 25 mg/dL LAB CHEMISTRY METHOD 03/03/2024 12:42 PM [facility] Creatinine 1.28 0.70 - 1.30 mg/dL LAB CHEMISTRY METHOD 03/03/2024 12:42 PM [facility] eGFR 58(L) >=60 mL/min/1. 73m2 LAB CHEMISTRY METHOD 03/03/2024 12:42 PM [facility] Comment:Calculation based on the Chronic Kidney Disease Epidemiology Collaboration (CKD-EPI) equation refit without adjustment for race. BUN/Creatinine Ratio 16.4 LAB CHEMISTRY METHOD 03/03/2024 12:42 PM [facility] Calcium 8.4(L) 8.5 - 10.5 mg/dL LAB CHEMISTRY METHOD 03/03/2024 12:42 PM [facility] AST (SGOT) 19 10 - 42 unit/L LAB CHEMISTRY METHOD 03/03/2024 12:42 PM [facility] ALT (SGPT) 27 10 - 60 unit/L LAB CHEMISTRY METHOD 03/03/2024 12:42 PM [facility] Alkaline Phosphatase 75 42 - 121 unit/L LAB CHEMISTRY METHOD 03/03/2024 12:42 PM [facility] Total Protein 6.5 6.0 - 8.0 g/dL LAB CHEMISTRY METHOD 03/03/2024 12:42 PM [facility] Albumin 2.7(L) 3.2 - 5.0 g/dL LAB CHEMISTRY METHOD 03/03/2024 12:42 PM [facility] Total Bilirubin 0.3 0.0 - 1.4 mg/dL LAB CHEMISTRY METHOD 03/03/2024 12:42 PM [facility] Blood Venous blood specimen / Unknown Venipuncture / Unknown 03/03/2024 5:18 AM EST 03/03/2024 10:00 AM EST us Jono Mao MD LAB BLOOD ORDERABLES Final Resul t Performing Organization Address City/[facility]/ZIP Co de Phone Number [facility] [address] [place] [address], [place] [phone] * (ABNORMAL) Prothrombin time with INR (03/03/2024 5:18 AM EST) Protime 23.3(H) 10.6 - 13.9 sec LAB COAGULATION METHOD 03/03/2024 11:24 AM EST [facility] INR 1.9 LAB COAGULATION METHOD 03/03/2024 11:24 AM [facility] Blood Venous blood specimen / Unknown Venipuncture / Unknown 03/03/2024 5:18 AM EST 03/03/2024 10:00 AM EST us Jono Mao MD LAB BLOOD ORDERABLES Final Resul t Performing Organization Address City/[facility]/ZIP Co de Phone Number [facility] [address] [place] [address], [place] [phone] * (ABNORMAL) Complete blood count (03/03/2024 5:18 AM EST) WBC 8.4 4.8 - 10.8 K/mcL LAB HEMETOLOGY METHOD 03/03/2024 11:35 AM [facility] RBC 3.60(L) 4.50 - 5.50 M/mcL LAB HEMETOLOGY METHOD 03/03/2024 11:35 AM [facility] Hemoglobin 11.4(L) 13.5 - 17.5 g/dL LAB HEMETOLOGY METHOD 03/03/2024 11:35 AM [facility] Hematocrit 35.4(L) 42.0 - 54.0 % LAB HEMETOLOGY METHOD 03/03/2024 11:35 AM [facility] MCV 98.6(H) 79.0 - 98.0 FL LAB HEMETOLOGY METHOD 03/03/2024 11:35 AM EST [facility] MCH 31.8 27.0 - 32.0 pcg LAB HEMETOLOGY METHOD 03/03/2024 11:35 AM [facility] MCHC 32.2 32.0 - 37.0 g/dL LAB HEMETOLOGY METHOD 03/03/2024 11:35 AM EST [facility] RDW 15.8(H) 11.0 - 15.0 % LAB HEMETOLOGY METHOD 03/03/2024 11:35 AM [facility] Platelets 254 130 - 400 K/mcL LAB HEMETOLOGY METHOD 03/03/2024 11:35 AM [facility] MPV 10.6 7.0 - 11.0 FL LAB HEMETOLOGY METHOD 03/03/2024 11:35 AM EST [facility] NRBC 0.0 <1.0 % LAB HEMETOLOGY METHOD 03/03/2024 11:35 AM [facility] NRBC Absolute 0.00 <0.10 K/mcL LAB HEMETOLOGY METHOD 03/03/2024 11:35 AM [facility] Blood Venous blood specimen / Unknown Venipuncture / Unknown 03/03/2024 5:18 AM EST 03/03/2024 10:00 AM EST us Jono Mao MD LAB BLOOD ORDERABLES Final Resul t [facility] [address] [place] [address], documented in this encounter Visit Diagnoses Diagnosis Unspecified diastolic (congestive) heart failure (CMS/HCC V24, CMS/HCC V28) Acute kidney failure, unspecified (CMS/HCC V24) Acute kidney failure, unspecified Pneumonitis due to inhalation of food and vomit (CMS/HCC V24, CMS/HCC V28) Paroxysmal atrial fibrillation (CMS/HCC V24, [facility] V28) Atrial fibrillation documented in this encounter Additional Health Concerns Infection Onset Date Last Indicated Resolved Time 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
--- OUTSIDE RECORDS SUMMARY | 2024-12-22 13:28 | XMS_ITS | Encounter Summary ---
Author Organization [facility] Address [id number] [place] [phone] Care Team Providers Care Campus President Name Role Phone Fidel Davis MD Primary Care Provider [phone] Encounter Details Date Type Department Care Team (Late st Contact Info) Description 03/04/2024 Lab Requisition [facility] - Main Lab [address] [facility] [place] [address] Steven Lopez MD [address] [place] [phone] Respiratory failure, unspecified, unspecified whether with hypoxia or hypercapnia (CMS/HCC V24, CMS/HCC V28) Social History Tobacco Use Types Packs/Day [...] Encounters Date Type Department Care Team (Late st Contact Info) Description 05/23/2025 4:00 PM EDT Office Visit Adult Medicine [address] [phone] Fidel Davis MD [address] [place] [phone] documented as of this encounter Procedures Procedure Name Priority Date/Time Associated Diagnosis Comments COMPLETE BLOOD COUNT Routine 03/07/2024 5:16 AM EST Respiratory failure, unspecified, unspecified whether with hypoxia or hypercapnia (CMS/HCC) BASIC METABOLIC PANEL Routine 03/07/2024 5:16 AM EST Respiratory failure, unspecified, unspecified whether with hypoxia or hypercapnia (CMS/HCC) documented in this encounter Results * (ABNORMAL) Basic metabolic panel (03/07/2024 5:16 AM EST) Pathologist [facility] Sodium 137 133 - 145 mmol/L LAB CHEMISTRY METHOD 03/07/2024 12:07 PM [facility] Potassium 4.4 3.5 - 5.5 mmol/L LAB CHEMISTRY METHOD 03/07/2024 12:07 PM [facility] Chloride 104 96 - 110 mmol/L LAB CHEMISTRY METHOD 03/07/2024 12:07 PM [facility] CO2 26 21 - 32 mmol/L LAB CHEMISTRY METHOD 03/07/2024 12:07 PM [facility] Anion Gap 7 3 - 11 LAB CHEMISTRY METHOD 03/07/2024 12:07 PM [facility] Glucose 75 70 - 100 mg/dL LAB CHEMISTRY METHOD 03/07/2024 12:07 PM [facility] BUN 15 5 - 25 mg/dL LAB CHEMISTRY METHOD 03/07/2024 12:07 PM [facility] Creatinine 1.14 0.70 - 1.30 mg/dL LAB CHEMISTRY METHOD 03/07/2024 12:07 PM [facility] eGFR 67 >=60 mL/min/1. 73m2 LAB CHEMISTRY METHOD 03/07/2024 12:07 PM [facility] Comment:Calculation based on the Chronic Kidney Disease Epidemiology Collaboration (CKD-EPI) equation refit without adjustment for race. BUN/Creatinine Ratio 13.2 LAB CHEMISTRY METHOD 03/07/2024 12:07 PM [facility] Calcium 8.4(L) 8.5 - 10.5 mg/dL LAB CHEMISTRY METHOD 03/07/2024 12:07 PM [facility] Blood Venous blood specimen / Unknown Venipuncture / Unknown 03/07/2024 5:16 AM EST 03/07/2024 10:59 AM EST us Steven Lopez MD LAB BLOOD ORDERABLES Final Resul t [facility] [address] [place] [address], [place] [phone] * (ABNORMAL) Complete blood count (03/07/2024 5:16 AM EST) WBC 8.4 4.8 - 10.8 K/mcL LAB HEMETOLOGY METHOD 03/07/2024 12:11 PM [facility] RBC 3.60(L) 4.50 - 5.50 M/mcL LAB HEMETOLOGY METHOD 03/07/2024 12:11 PM [facility] Hemoglobin 11.6(L) 13.5 - 17.5 g/dL LAB HEMETOLOGY METHOD 03/07/2024 12:11 PM [facility] Hematocrit 36.0(L) 42.0 - 54.0 % LAB HEMETOLOGY METHOD 03/07/2024 12:11 PM [facility] MCV 99.4(H) 79.0 - 98.0 FL LAB HEMETOLOGY METHOD 03/07/2024 12:11 PM [facility] MCH 32.0 27.0 - 32.0 pcg LAB HEMETOLOGY METHOD 03/07/2024 12:11 PM [facility] MCHC 32.2 32.0 - 37.0 g/dL LAB HEMETOLOGY METHOD 03/07/2024 12:11 PM [facility] RDW 16.1(H) 11.0 - 15.0 % LAB HEMETOLOGY METHOD 03/07/2024 12:11 PM EST [facility] Platelets 250 130 - 400 K/mcL LAB HEMETOLOGY METHOD 03/07/2024 12:11 PM [facility] MPV 10.5 7.0 - 11.0 FL LAB HEMETOLOGY METHOD 03/07/2024 12:11 PM [facility] NRBC 0.0 <1.0 % LAB HEMETOLOGY METHOD 03/07/2024 12:11 PM [facility] NRBC Absolute 0.00 <0.10 K/mcL LAB HEMETOLOGY METHOD 03/07/2024 12:11 PM [facility] Blood Venous blood specimen / Unknown Venipuncture / Unknown 03/07/2024 5:16 AM EST 03/07/2024 10:59 AM EST us Steven Lopez MD LAB BLOOD ORDERABLES Final Resul t [facility] [address] [place] [address], documented in this encounter Visit Diagnoses Diagnosis Respiratory failure, unspecified, unspecified whether with hypoxia or hypercapnia (CMS/HCC V24, CMS/HCC V28) documented in this encounter Additional Health Concerns Infection Onset Date Last Indicated Resolved Time 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
--- OUTSIDE RECORDS SUMMARY | 2024-12-22 13:28 | XMS_ITS | Clinical Summary ---
Author Organization [address] [facility] Address [address] [place] [address] Phone Care Team Providers Care Research Program Manager Name Role Phone Fidel Davis MD Primary Care Provider [phone] Allergies Active Allergy Reactions Criticality Noted Date Comments Plasma Protein Fraction High 04/29/2024 Other Reaction(s): fluid overload, plasma kallikrein cardiac arrest Plasma, Human, Normal 12/08/2016 Plasma kallikrein Medications multivitamin tablet Take 1 tablet by mouth 2 (two) times a day. 04/01/19 24 Active fluticasone propionate (FLONASE) 50 mcg/actuation nasal spray 1 [place] by Nasal route 2 times daily as needed for Rhinitis (nasal congestion) 03/11/19 24 Active ketoconazole (NIZORAL) 2 % cream Apply locally to affected area(s) twice a day for up to two weeks 01/06/20 23 Active sacubitriL-bassam sartan (Entresto) 24-26 mg per tablet Take 1 tablet by mouth 2 (two) times a day. 07/05/19 23 Active rivaroxaban (Xarelto) 20 mg tablet Take by mouth. 02/13/20 21 Active potassium chloride (KLOR-CON) 10 mEq CR tablet Take 2 tablets (20 mEq total) by mouth. For 7 days 05/09/19 23 Active loratadine (CLARITIN) 10 mg tablet TAKE 1 TABLET BY MOUTH DAILY NEEDED FOR ALLERGIES 05/10/19 23 Active diclofenac (VOLTAREN) 1 % topical gel Apply 1 applicator topically 2 (two) times a day. As needed for pain 05/09/19 23 Active ammonium lactate (LAC-HYDRIN) 12 % lotion Apply 1 drop to to affected area (on thighs and elbows) topically once per day as needed 08/20/19 18 Active multivitamin (MULTIPLE VITAMINS ORAL) TAKE 1 TABLET BY MOUTH TWICE A DAY Active lidocaine (ZTlido) 1.8 % adhesive patch,medicate d Apply 1 Patch topically every 12 hours. Active sodium chloride (AYR) 0.65 % nasal drops 1 [place] by Nasal route as needed for Congestion. Active docusate sodium (COLACE) 100 mg capsule Take 1 capsule (100 mg total) by mouth 2 (two) times a day. 180 capsule 1 04/22/19 25 Active traZODone (DESYREL) 50 mg tablet TAKE 1/2 TABLET (25MG) BY MOUTH EVERY NIGHT AT BEDTIME AND TAKE 1/2 TABLET BY MOUTH NEEDED AFTER THE FIRST DOSE IF NOT ASLEEP 90 tablet 1 04/22/19 25 Active Additional Information Patient not taking.Reason: Other, Reported on 11/28/2024 ipratropium-al buteroL (Combivent Respimat) 20-100 mcg/actuation inhaler Inhale 1 puff by mouth 4 (four) times a day. 1 each 04/29/19 25 2025 Active polyethylene glycol (Golytely) 236-22.74-6.74 -5.86 gram solution Take 4L by mouth once for one dose. May substitue any PEG. Starting at 6PM the night before your procedure drink 1 8oz glasses at your own pace until you complete half of the gallon. Finish 2nd half of the gallon 5 hours before your procedure. 4000 mL 05/12/19 25 Active bisacodyL (DULCOLAX) 5 mg EC tablet Take 2 tablets by mouth right before beginning bowel prep. See instructions provided by the office 2 tablet 05/12/19 25 Active ascorbic acid (VITAMIN C) 500 mg tablet Take 1 tablet (500 mg total) by mouth 1 (one) time each day. 90 tablet 2 05/24/19 25 Active ezetimibe (ZETIA) 10 mg tablet Take 1 tablet (10 mg total) by mouth 1 (one) time each day. 01/19/20 24 Active senna 8.6 mg tablet Take 1 tablet (8.6 mg total) by mouth as needed. 02/08/20 24 Active simethicone (MYLICON) 80 mg chewable tablet Chew 1 tablet (80 mg total) every 6 (six) hours if needed. 02/08/20 24 Active xynpfvqb-rwg-z errous sulfate (One Daily Multi-Vit w-Mineral) 4.5 mg iron tablet TAKE 1 TABLET BY MOUTH TWICE A DAY 56 tablet 5 10/12/19 25 Active dapagliflozin propanediol (Farxiga) 10 mg tablet Take 1 tablet (10 mg total) by mouth 1 (one) time each day. Active spironolactone (ALDACTONE) 25 mg tablet Take 1 tablet (25 mg total) by mouth 1 (one) time each day. Active mexiletine (MEXITIL) 150 mg capsule Take 2 capsules (300 mg total) by mouth every 12 (twelve) hours. 10/22/19 25 2025 Active acetaminophen (TYLENOL 8 HOUR) 650 mg 8 hr tablet TAKE 1 TABLET BY MOUTH EVERY SIX HOURS NEEDED FOR PAIN 40 tablet 5 11/11/19 25 Active baclofen (LIORESAL) 10 mg tablet TAKE 1 TABLET BY MOUTH THREE TIMES A DAY FOR SPASTICITY 84 tablet 1 12/06/19 25 Active tamsulosin (FLOMAX) 0.4 mg 24 hr capsule TAKE 2 CAPSULES BY MOUTH EVERY EVENING 30 MINUTES AFTER THE SAME MEAL DAILY 56 capsule 12/06/19 25 Active gabapentin (Neurontin) 400 mg capsule Take 1 capsule (400 mg total) by mouth 3 (three) times a day. 90 each 5 12/09/19 25 2025 Active collagenase (SantyL) 250 unit/gram ointment Apply topically 3 (three) times a week. 120 g 2 12/17/19 25 2025 Active albuterol HFA (PROAIR HFA ; PROVENTIL HFA ; VENTOLIN HFA) 90 mcg/actuation inhaler Inhale 2 puffs by mouth every 4 (four) hours if needed for wheezing. 6.7 g 12/20/19 25 Active furosemide (LASIX) 20 mg tablet Take 1 tablet (20 mg total) by mouth 1 (one) time each day in the morning. 90 tablet 1 12/22/19 25 Active furosemide (LASIX) 20 mg tablet TAKE 1 TABLET BY MOUTH EVERY MORNING 90 tablet 1 04/22/19 25 2024 Discontinued(R eorder) gabapentin (NEURONTIN) 300 mg capsule Take 1 capsule (300 mg total) by mouth 3 (three) times a day. 90 capsule 5 08/17/19 25 2024 Discontinued baclofen (LIORESAL) 10 mg tablet TAKE 1 TABLET BY MOUTH THREE TIMES A DAY FOR SPASTICITY 84 tablet 11/09/19 25 2024 Discontinued tamsulosin (FLOMAX) 0.4 mg 24 hr capsule TAKE 2 CAPSULES BY MOUTH EVERY EVENING 30 MINUTES AFTER THE SAME MEAL DAILY 56 capsule 11/09/19 25 2024 Discontinued docusate sodium (COLACE) 100 mg tablet Take 1 tablet (100 mg total) by mouth if needed for constipation (no bowel movement in 24 hours) for up to 10 days. 10 tablet 11/29/19 25 2024 mupirocin (BACTROBAN) 2 % ointment Apply topically 3 (three) times a day for 10 days. 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 Akers 07/2024, offered ICD given his LVEF and prior VF arrest, but he was uninterested in this procedure Assessment & Plan (10/21/2024 8:50 AM EDT): The patient remains on mexiletine. He has not had any palpitations, dizziness or syncope. We discussed again his ischemic myopathy and a propensity towards ventricular tachycardia/ventricular fibrillation which can be life ending. 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 Continue periodic EKGs. His liver enzymes are not preclusive to continuing therapy, but will be watched. The patient continues to decline ICD implantation. I called his HCP (daughter Priyanka) and again explained the procedure, just to keep her in the loop. I do not feel the patient's condition is preclusive to ICD implantation, though he is thin and the device will likely protrude some. We discussed that the patient does not receive full anesthesia and there are no breathing tubes involved. Rather, will use conscious sedation aimed at patient comfort during the procedure. The patient and his daughter continue to decline the procedure. I did tell them if they change their mind to let us know and we can revisit it. They understand and agree. PAF (paroxysmal atrial fibri llation) ([facility] V24, [facility] V28) 10/18/2024 Overview (10/21/2024): Anticoagulated with Xarelto Assessment & Plan (10/21/2024 8:39 AM EDT): The patient's rate is well-controlled off of beta-rosy and on mexiletine. Continue current treatment plan. He denies any recent falls or bleeding issues. Continue Xarelto for anticoagulation Pleural effusion 10/17/2024 Ischemic cardiomyopathy 10/17/2024 Overview (10/21/2024): - LVEF 35-40% -Most recent echocardiogram 08/02/2024 at [facility] shows LVEF 39%, moderate to severe left ventricular dilatation with normal LV wall thickness, apex, apical inferior, apical septal meyer are akinetic/dyskinetic with basal to mid inferior wall akinetic, grade 2 diastolic dysfunction, moderate to severely dilated left atrium, dilated right atrium, trace MR mild TR, elevated PASP 48 mmHg plus RV pressure. Assessment & Plan (10/21/2024 8:39 AM EDT): The patient has an ischemic cardiomyopathy though appears euvolemic on exam today. He is on excellent GDMT including ARNI, MRA, and SGLT2 inhibitor. His beta-rosy was discontinued in favor of mexiletine for his ventricular tachycardia. The patient personally continues to decline ICD (see below) Difficulty swallowing solids 05/09/2023 Dysphagia 05/02/2020 Old SD (myocardial infarction) 01/01/2018 Benign prostatic hyperplasia with lower urinary tract symptoms 04/30/2017 Elevated PSA 04/30/2017 Left hemiparesis (CMS/HCC V24, CMS/HCC V28) 11/30 HTN (hypertension) 12/08/2016 Assessment & Plan (10/21/2024 8:38 AM EDT): Blood pressure somewhat soft in office today but asymptomatic. Continue GDMT for his myopathy including Arni, MRA, SGLT2 inhibitor and diuretic. If he becomes symptomatically hypotensive, could make his loop diuretic as needed as he appears euvolemic today. History of CVA with residual deficit 12/08/2016 Overview (05/09/2023): Left sided weakness, 2013 Hyperlipidemia 12/08/2016 Assessment & Plan (10/21/2024 8:40 AM EDT): LDL somewhat elevated on last check from 08/2023. It is unclear to me why he is not on a statin. We can continue to follow his liver enzymes and possibly initiate moderate dose Lipitor in addition to his Zetia. Resolved Problems Problem Noted Date Diagnosed Date Resolved Date HFrEF (heart failure with re duced ejection fraction) ([facility] V24, CMS/HCC V28) 02/13/2023 Encounters Date Type Department Care Team Description 12/21/2024 Telephone Adult Medicine [address] [phone] Fidel Davis MD 12/21/2024 Billing Patient Not Present Adult Medicine [address] [phone] Fidel Davis MD 12/15/2024 Telephone Adult Medicine [address] [phone] Trini Mcgregor MA 12/13/2024 Telephone Adult Medicine [address] [phone] Fidel Davis MD 12/09/2024 Telephone Adult Medicine [address] [phone] Fidel Davis MD 12/08/2024 6:00 PM EDT Office Visit [facility] [address] [phone] Santi Wolf PA Abrasion of right hand, initial encounter (Primary Dx) 12/08/2024 Telephone Adult Medicine [address] [phone] Fidel Davis MD 12/05/2024 Telephone Adult Medicine [address] [phone] Fidel Davis MD 12/05/2024 Telephone Adult [address] [phone] Fidel Davis MD 12/05/2024 Telephone Adult [address] [phone] Fidel Davis MD 11/29/2024 Telephone Adult Medicine [address] [phone] Fidel Davis MD 11/28/2024 1:30 PM EDT Office Visit [address] [phone] Fidel Davis MD HFrEF (heart failure with reduced ejection fraction) (CMS/HCC V24, CMS/HCC V28) (Primary Dx); MANPREET (acute kidney injury) (CMS/HCC V24); Primary hypertension; History of CVA with residual deficit; Difficulty swallowing solids; Left hemiparesis (CMS/HCC V24, CMS/HCC V28); Ischemic cardiomyopathy; Ventricular fibrillation (CMS/HCC V24, CMS/HCC V28); Aspiration pneumonia, unspecified aspiration pneumonia type, unspecified laterality, unspecified part of lung (CMS/HCC V24, CMS/HCC V28); Urinary retention 11/28/2024 Results Follow-Up Adult Medicine [address], [place] [phone] Fidel Davis MD 11/28/2024 Telephone Adult Medicine [address] [phone] Wendi Beatty MA 11/28/2024 Telephone Adult [address] [phone] Fidel Davis MD 11/25/2024 Lab Requisition [facility] [address] [facility] [place] [phone] Steven Lopez MD Acute combined systolic (congestive) and diastolic (congestive) heart failure (CMS/HCC V24, CMS/HCC V28); Acute respiratory failure with hypoxia (CMS/HCC V24, CMS/HCC V28) 11/23/2024 Telephone Adult Medicine [address] [phone] [employer], GUIDE DELE[employer]ATE 11/23/2024 Telephone Adult Medicine [address] [phone] Fidel Davis MD 11/22/2024 Telephone [facility] [address] [place] [address] Provider, Not In System 11/21/[address] [place] [phone] Chloé Matos NP 11/18/2024 Lab Requisition [facility] [address] [facility] [place] [phone] Steven Lopez MD Acute combined systolic (congestive) and diastolic (congestive) heart failure (CMS/HCC V24, CMS/HCC V28); Acute respiratory failure with hypoxia (CMS/HCC V24, CMS/HCC V28) 11/13/2024 Lab Requisition [facility] [address] [facility] [place] [phone] Steven Lopez MD Acute combined systolic (congestive) and diastolic (congestive) heart failure (CMS/HCC V24, CMS/HCC V28); Acute respiratory failure with hypoxia (CMS/HCC V24, CMS/HCC V28) 11/08/[address] [phone] Fidel Davis MD 11/04/2024 Lab Requisition [facility] [address] [place] [phone] Steven Lopez MD Acute combined systolic (congestive) and diastolic (congestive) heart failure (CMS/HCC V24, CMS/HCC V28); Acute respiratory failure with hypoxia (CMS/HCC V24, CMS/HCC V28) 11/04/[address] [phone] Fidel Davis MD 11/04/2024 Lab Requisition [facility] [address] [place] [phone] Steven Lopez MD Chronic combined systolic (congestive) and diastolic (congestive) heart failure ([facility]/HCC V24, CMS/HCC V28) 10/28/2024 Lab Requisition [facility] [address] [place] [phone] Steven Lopez MD Acute combined systolic (congestive) and diastolic (congestive) heart failure (CMS/HCC V24, CMS/HCC V28); Acute respiratory failure with hypoxia ([facility]/HCC V24, CMS/HCC V28) 10/21/2024 8:10 AM EDT Office Visit [facility] [address] [facility] [address] [place] [address] hCloé Matos NP Primary hypertension (Primary Dx); Ischemic cardiomyopathy; PAF (paroxysmal atrial fibrillation) (CMS/HCC V24, CMS/HCC V28); Mixed hyperlipidemia; Ventricular fibrillation (CMS/HCC V24, CMS/HCC V28) 10/21/2024 Lab Requisition [facility] [address] [place] [phone] Steven Lopez MD Acute combined systolic (congestive) and diastolic (congestive) heart failure ([facility]/HCC V24, CMS/HCC V28); Acute respiratory failure with hypoxia (CMS/HCC V24, CMS/HCC V28) 10/19/2024 Telephone Adult Medicine [address] [phone] Fidel Davis MD 10/15/2024 Lab Requisition [facility] [address] [place] [phone] Steven Lopez MD Acute combined systolic (congestive) and diastolic (congestive) heart failure ([facility]/HCC V24, CMS/HCC V28); Acute respiratory failure with hypoxia ([facility] V24, [facility]/HCC V28); Muscle weakness (generalized) 10/07/2024 Lab Requisition [facility] [address] [place] [phone] Steven Loepz MD Acute combined systolic (congestive) and diastolic (congestive) heart failure ([facility] V24, CMS/HCC V28); Acute respiratory failure with hypoxia ([facility] V24, CMS/HCC V28); Acute kidney failure, unspecified ([facility] V24) 09/30/2024 Lab Requisition [facility] [address] [place] [phone] Steven Lopez MD Acute combined systolic (congestive) and diastolic (congestive) heart failure ([facility] V24, CMS/[facility] V28); Acute respiratory failure with hypoxia ([facility] V24, [facility] V28) 09/28/2024 Billing Patient Not Present Adult Medicine [address] [phone] Fidel Davis MD 09/27/2024 Telephone Adult Medicine [address] [phone] [place] 09/24/2024 Lab Requisition [facility] [address] [place] [phone] Steven Lopez MD Acute combined systolic (congestive) and diastolic (congestive) heart failure ([facility] V24, [facility] [place] Acute respiratory failure with hypoxia ([facility] [place], [facility] [place]28) 09/21/2024 Lab Requisition [facility] [address] [place] [phone] Steven Lopez MD Acute kidney failure, unspecified ([facility] [place]) from Last 3 Months Immunizations Immunization Administration Dates Next Due Influenza trivalent, with preservative (Fluzone; Afluria) 6mo and older 03/04/2019,11/04/2018,11/12/2017,2016,01/15/2016 Td Tetanus diptheria (Tdvax) 7yo and older 02/20/2021,03/04/2019 Medical History Medical History Date Comments History of CVA with residual deficit 12/08/2016 DX:History of CVA with residual deficit; COMMENT: Left sided weakness, 2013 Left hemiparesis ([facility] [place] 4, [facility] V28) 12/10/2016 DX:Left hemiparesis (HCC) Hyperlipidemia 12/08/2016 DX:Hyperlipidemi a HTN (hypertension) 12/08/2016 DX:HTN (hyper tension) Difficulty swallowing solids DX: Difficulty swallowing solids Cerebrovascular disease DX:Cereb rovascular disease CHF exacerbation ([facility] V[facility] 4, [facility] V28) Dysphagia Dysarthria Adrenal nodule ([facility] [place]) H/O ventricular tachycardia Family History Medical History Relation Name Comments Blindness Neg Hx Cataracts Neg Hx Glaucoma Neg Hx Macular degeneration Neg Hx Strabismus Neg Hx Social History Tobacco Use Types Packs/Day Years Used Date Smoking Tobacco: Former Cigarettes Passive Smoke Exposure: Past Smokeless Tobacco: Never Alcohol Use Standard Drinks/Week Comments Not Currently 0 (1 standard drink = 0.6 oz pur e alcohol) Sex and Gender Information Value Date Recorded Sex Assigned at Not on file Legal Sex Male 9:47 PM EST Gender Identity Not on file Sexual Orientation Not on file Obstetrics History Last Filed Vital Signs Vital Sign Reading Time Taken Comments Blood Pressure 90/66 12/08/2024 6:02 PM EDT Pulse 98 11/28/2024 1:20 PM EDT Temperature 36.3 C (97.3 F) 12/08/2024 6:02 PM EDT Respiratory Rate 16 11/28/2024 1:20 PM EDT Oxygen Saturation 94% 11/28/2024 1:20 PM EDT Inhaled Oxygen Concentration - - Weight 51.7 kg (114 lb) 10/21/2024 7:55 AM EDT Height 167.6 cm (5' 6 ) 11/28/2024 1:20 PM EDT Body Mass Index 18.4 10/21/2024 7:55 AM EDT Plan of Treatment Upcoming Encounters Date Type Department Care Team (Late st Contact Info) Description 05/23/2025 4:00 PM EDT Office Visit Adult Medicine [address] [phone] Fidel Davis MD [address] [place] [phone] Health Maintenance Due Date Last Done Comments Zoster Vaccines (1 of 2) 1998 Colorectal Cancer Screening: Stool Based Tests (FOBT/FIT) 02/08/2022 Falls Risk Assessment 02/08/2022 Medicare Annual Wellness Visit 02/08/2022 Social Influencers of Health Screening 02/08/2022 RSV Immunization Adult Patients (1 - 1-dose 75+ series) 07/05/2023 Depression Screening 03/02/2024 COVID-19 Vaccine ( season) 2024 01/20/2021, 05/12/2020, 04/21/2020 Influenza Vaccine (#1) 2024 , 12/01/2023, 03/04/2019, Additional history exists Hypertension/CHF/CAD Annual BMP Blood Test 11/28/2025 11/28/2024, 11/21/2024, 11/14/2024, Additional history exists Cholesterol Screening (Lipid Panel) 09/06/2028 09/07/2023, 09/07/2023, 02/06/2022 DTaP,Tdap,and Td Vaccines (3 - Td or Tdap) 02/20/2031 02/20/2021, 03/04/2019 Pneumococcal Vaccine: 50+ Years Completed 03/04/2019, 01/15/2016, 08/29/2010 Hepatitis C Screening Completed 05/02/2020 HIB Vaccines Aged Out No longer eligi ble based on patient's age to complete this topic HPV Vaccines Aged Out No longer eligi ble based on patient's age to complete this topic Hepatitis A Vaccines Aged Out No long er eligible based on patient's age to complete this topic Hepatitis B Vaccines Aged Out No long er eligible based on patient's age to complete this topic IPV Vaccines Aged Out No longer eligi ble based on patient's age to complete this topic MMR Vaccines Aged Out No longer eligi ble based on patient's age to complete this topic Meningococcal ACWY Vaccine Aged Out N o longer eligible based on patient's age to complete this topic Meningococcal B Vaccine Aged Out No l onger eligible based on patient's age to complete this topic RSV Immunization Patients Under 20 months Aged Out No longer eligible based on patient's age to complete this topic Varicella Vaccines Aged Out No longer eligible based on patient's age to complete this topic Procedures Procedure Name Priority Date/Time Associated Diagnosis Comments BASIC METABOLIC PANEL Routine 11/28/2024 2:24 PM EDT MANPREET (acute kidney injury) (CMS/HCC V24) BASIC METABOLIC PANEL Routine 11/21/2024 5:52 AM EDT Acute combined systolic (congestive) and diastolic (congestive) heart failure (CMS/HCC V24, CMS/HCC V28) Acute respiratory failure with hypoxia (CMS/HCC V24, CMS/HCC V28) COMPLETE BLOOD COUNT Routine 11/21/2024 5:52 AM EDT Acute combined systolic (congestive) and diastolic (congestive) heart failure (CMS/HCC V24, CMS/HCC V28) Acute respiratory failure with hypoxia (CMS/HCC V24, CMS/HCC V28) BASIC METABOLIC PANEL Routine 11/14/2024 5:25 AM EDT Acute combined systolic (congestive) and diastolic (congestive) heart failure (CMS/HCC V24, CMS/HCC V28) Acute respiratory failure with hypoxia (CMS/HCC V24, CMS/HCC V28) COMPLETE BLOOD COUNT Routine 11/14/2024 5:25 AM EDT Acute combined systolic (congestive) and diastolic (congestive) heart failure (CMS/HCC V24, CMS/HCC V28) Acute respiratory failure with hypoxia (CMS/HCC V24, CMS/HCC V28) BASIC METABOLIC PANEL Routine 11/07/2024 5:29 AM EDT Acute combined systolic (congestive) and diastolic (congestive) heart failure (CMS/HCC V24, CMS/HCC V28) Acute respiratory failure with hypoxia (CMS/HCC V24, CMS/HCC V28) COMPLETE BLOOD COUNT Routine 11/07/2024 5:29 AM EDT Acute combined systolic (congestive) and diastolic (congestive) heart failure (CMS/HCC V24, CMS/HCC V28) Acute respiratory failure with hypoxia (CMS/HCC V24, CMS/HCC V28) CBC WITH AUTO DIFFERENTIAL Routine 11/04/2024 5:10 AM EDT Chronic combined systolic (congestive) and diastolic (congestive) heart failure (CMS/HCC V24, CMS/HCC V28) CBC AND DIFFERENTIAL Routine 11/04/2024 5:10 AM EDT Chronic combined systolic (congestive) and diastolic (congestive) heart failure (CMS/HCC V24, CMS/HCC V28) BASIC METABOLIC PANEL Routine 11/01/2024 5:38 AM EDT Acute combined systolic (congestive) and diastolic (congestive) heart failure (CMS/HCC V24, CMS/HCC V28) Acute respiratory failure with hypoxia (CMS/HCC V24, CMS/HCC V28) COMPLETE BLOOD COUNT Routine 11/01/2024 5:38 AM EDT Acute combined systolic (congestive) and diastolic (congestive) heart failure (CMS/HCC V24, CMS/HCC V28) Acute respiratory failure with hypoxia (CMS/HCC V24, CMS/HCC V28) BASIC METABOLIC PANEL Routine 10/24/2024 5:41 AM EDT Acute combined systolic (congestive) and diastolic (congestive) heart failure (CMS/HCC V24, CMS/HCC V28) Acute respiratory failure with hypoxia (CMS/HCC V24, CMS/HCC V28) COMPLETE BLOOD COUNT Routine 10/24/2024 5:41 AM EDT Acute combined systolic (congestive) and diastolic (congestive) heart failure (CMS/HCC V24, CMS/HCC V28) Acute respiratory failure with hypoxia (CMS/HCC V24, CMS/HCC V28) PREALBUMIN Routine 10/17/2024 5:31 AM EDT Acute combined systolic (congestive) and diastolic (congestive) heart failure (CMS/HCC V24, CMS/HCC V28) Acute respiratory failure with hypoxia (CMS/HCC V24, CMS/HCC V28) Muscle weakness (generalized) BASIC METABOLIC PANEL Routine 10/17/2024 5:31 AM EDT Acute combined systolic (congestive) and diastolic (congestive) heart failure (CMS/HCC V24, CMS/HCC V28) Acute respiratory failure with hypoxia (CMS/HCC V24, CMS/HCC V28) Muscle weakness (generalized) COMPLETE BLOOD COUNT Routine 10/17/2024 5:31 AM EDT Acute combined systolic (congestive) and diastolic (congestive) heart failure (CMS/HCC V24, CMS/HCC V28) Acute respiratory failure with hypoxia (CMS/HCC V24, CMS/HCC V28) Muscle weakness (generalized) COMPLETE BLOOD COUNT Routine 10/03/2024 6:12 AM EDT Acute combined systolic (congestive) and diastolic (congestive) heart failure (CMS/HCC V24, CMS/HCC V28) Acute respiratory failure with hypoxia (CMS/HCC V24, CMS/HCC V28) BASIC METABOLIC PANEL Routine 10/03/2024 5:31 AM EDT Acute combined systolic (congestive) and diastolic (congestive) heart failure (CMS/HCC V24, CMS/HCC V28) Acute respiratory failure with hypoxia (CMS/HCC V24, CMS/HCC V28) BASIC METABOLIC PANEL Routine 09/26/2024 5:46 AM EDT Acute combined systolic (congestive) and diastolic (congestive) heart failure (CMS/HCC V24, CMS/HCC V28) Acute respiratory failure with hypoxia (CMS/HCC V24, CMS/HCC V28) COMPLETE BLOOD COUNT Routine 09/26/2024 5:46 AM EDT Acute combined systolic (congestive) and diastolic (congestive) heart failure (CMS/HCC V24, CMS/HCC V28) Acute respiratory failure with hypoxia (CMS/HCC V24, CMS/HCC V28) BASIC METABOLIC PANEL Routine 09/21/2024 5:24 AM EDT Acute kidney failure, unspecified (CMS/HCC V24) COMPLETE BLOOD COUNT Routine 09/21/2024 5:24 AM EDT Acute kidney failure, unspecified (CMS/HCC V24) LIPID PANEL Routine 09/07/2023 HEPATITIS C SCREENING Routine 05/02/2020 from Last 3 Months or Most Recently Relevant to Health Maintenance Results * Basic metabolic panel (11/28/2024 2:24 PM EDT) Only the most recent of10 resultswithin the time period is included. [facility] Signature Sodium 139 133 - 145 mmol/L LAB CHEMISTRY METHOD 11/28/2024 6:18 PM EDT [facility] Potassium 3.9 3.5 - 5.5 mmol/L LAB CHEMISTRY METHOD 11/28/2024 6:18 PM EDT [facility] Chloride 103 96 - 110 mmol/L LAB CHEMISTRY METHOD 11/28/2024 6:18 PM [facility] CO2 27 21 - 32 mmol/L LAB CHEMISTRY METHOD 11/28/2024 6:18 PM EDT [facility] Anion Gap 9 3 - 11 LAB CHEMISTRY METHOD 11/28/2024 6:18 PM EDT [facility] Glucose 98 70 - 100 mg/dL LAB CHEMISTRY METHOD 11/28/2024 6:18 PM EDT [facility] BUN 25 5 - 25 mg/dL LAB CHEMISTRY METHOD 11/28/2024 6:18 PM EDT [facility] Creatinine 1.16 0.70 - 1.30 mg/dL LAB CHEMISTRY METHOD 11/28/2024 6:18 PM EDT [facility] eGFR 65 >=60 mL/min/1. 73m2 LAB CHEMISTRY METHOD 11/28/2024 6:18 PM EDT [facility] Comment:Calculation based on the Chronic Kidney Disease Epidemiology Collaboration (CKD-EPI) equation refit without adjustment for race. BUN/Creatinine Ratio 21.6 LAB CHEMISTRY METHOD 11/28/2024 6:18 PM EDT [facility] Calcium 9.2 8.5 - 10.5 mg/dL LAB CHEMISTRY METHOD 11/28/2024 6:18 PM EDT [facility] Blood Venous blood specimen / Unknown Venipuncture / Unknown 11/28/2024 2:24 PM EDT 11/28/2024 2:24 PM EDT us Fidel Davis MD LAB BLOOD ORDERABLES Final Resu lt [facility] [address] [place] [address], * (ABNORMAL) Complete blood count (11/21/2024 5:52 AM EDT) Only the most recent of9 resultswithin the time period is included. WBC 7.5 4.8 - 10.8 K/mcL LAB HEMETOLOGY METHOD 11/21/2024 1:31 PM EDT [facility] RBC 3.60(L) 4.50 - 5.50 M/mcL LAB HEMETOLOGY METHOD 11/21/2024 1:31 PM [facility] Hemoglobin 10.8(L) 13.5 - 17.5 g/dL LAB HEMETOLOGY METHOD 11/21/2024 1:31 PM [facility] Hematocrit 33.3(L) 42.0 - 54.0 % LAB HEMETOLOGY METHOD 11/21/2024 1:31 PM [facility] MCV 92.5 79.0 - 98.0 FL LAB HEMETOLOGY METHOD 11/21/2024 1:31 PM [facility] MCH 30.0 27.0 - 32.0 pcg LAB HEMETOLOGY METHOD 11/21/2024 1:31 PM [facility] MCHC 32.4 32.0 - 37.0 g/dL LAB HEMETOLOGY METHOD 11/21/2024 1:31 PM [facility] RDW 18.4(H) 11.0 - 15.0 % LAB HEMETOLOGY METHOD 11/21/2024 1:31 PM [facility] Platelets 504(H) 130 - 400 K/mcL LAB HEMETOLOGY METHOD 11/21/2024 1:31 PM [facility] MPV 9.2 7.0 - 11.0 FL LAB HEMETOLOGY METHOD 11/21/2024 1:31 PM [facility] NRBC 0.0 <1.0 % LAB HEMETOLOGY METHOD 11/21/2024 1:31 PM [facility] NRBC Absolute 0.00 <0.10 K/mcL LAB HEMETOLOGY METHOD 11/21/2024 1:31 PM [facility] Blood Venous blood specimen / Unknown Venipuncture / Unknown 11/21/2024 5:52 AM EDT 11/21/2024 11:00 AM EDT us Steven Lopez MD LAB BLOOD ORDERABLES Final Resul t [facility] [address] [place] [address], [place] [phone] * (ABNORMAL) CBC auto differential (11/04/2024 5:10 AM EDT) WBC 10.8 4.8 - 10.8 K/mcL LAB HEMETOLOGY METHOD 11/04/2024 8:57 AM EDT [facility] RBC 3.70(L) 4.50 - 5.50 M/mcL LAB HEMETOLOGY METHOD 11/04/2024 8:57 AM EDT [facility] Hemoglobin 10.7(L) 13.5 - 17.5 g/dL LAB HEMETOLOGY METHOD 11/04/2024 8:57 AM EDT [facility] Hematocrit 32.6(L) 42.0 - 54.0 % LAB HEMETOLOGY METHOD 11/04/2024 8:57 AM EDT [facility] MCV 88.3 79.0 - 98.0 FL LAB HEMETOLOGY METHOD 11/04/2024 8:57 AM EDT [facility] MCH 29.0 27.0 - 32.0 pcg LAB HEMETOLOGY METHOD 11/04/2024 8:57 AM EDT [facility] MCHC 32.8 32.0 - 37.0 g/dL LAB HEMETOLOGY METHOD 11/04/2024 8:57 AM EDT [facility] RDW 18.3(H) 11.0 - 15.0 % LAB HEMETOLOGY METHOD 11/04/2024 8:57 AM EDT [facility] Platelets 340 130 - 400 K/mcL LAB HEMETOLOGY METHOD 11/04/2024 8:57 AM EDT [facility] MPV 9.7 7.0 - 11.0 FL LAB HEMETOLOGY METHOD 11/04/2024 8:57 AM [facility] NRBC 0.0 <1.0 % LAB HEMETOLOGY METHOD 11/04/2024 8:57 AM [facility] NRBC Absolute 0.00 <0.10 K/mcL LAB HEMETOLOGY METHOD 11/04/2024 8:57 AM [facility] Neutrophils Relative 74.9 % LAB HEMETOLOGY METHOD 11/04/2024 8:57 AM [facility] Lymphocytes Relative 14.4 % LAB HEMETOLOGY METHOD 11/04/2024 8:57 AM [facility] Monocytes Relative 9.4 % LAB HEMETOLOGY METHOD 11/04/2024 8:57 AM [facility] Eosinophils Relative 0.2 % LAB HEMETOLOGY METHOD 11/04/2024 8:57 AM [facility] Basophils Relative 0.3 % LAB HEMETOLOGY METHOD 11/04/2024 8:57 AM [facility] Immature Granulocytes Relative 0.8 % LAB HEMETOLOGY METHOD 11/04/2024 8:57 AM [facility] Neutrophils Absolute 8.12(H) 1.50 - 7.00 K/mcL LAB HEMETOLOGY METHOD 11/04/2024 8:57 AM [facility] Lymphocytes Absolute 1.56 1.00 - 5.00 K/mcL LAB HEMETOLOGY METHOD 11/04/2024 8:57 AM [facility] Monocytes Absolute 1.02(H) 0.20 - 1.00 K/mcL LAB HEMETOLOGY METHOD 11/04/2024 8:57 AM [facility] Eosinophils Absolute 0.02 0.00 - 0.50 K/mcL LAB HEMETOLOGY METHOD 11/04/2024 8:57 AM EDT [facility] Basophils Absolute 0.03 0.00 - 0.20 K/[facility] LAB HEMETOLOGY METHOD 11/04/2024 8:57 AM EDT [facility] Immature Granulocytes Absolute 0.09(H) 0.00 - 0.03 K/[facility] LAB HEMETOLOGY METHOD 11/04/2024 8:57 AM EDT [facility] Blood Venous blood specimen / Unknown Venipuncture / Unknown 11/04/2024 5:10 AM EDT 11/04/2024 8:45 AM EDT us Steven Lopez MD LAB BLOOD ORDERABLES Final Resul t Performing Organization Address City/[facility]/ZIP Co de Phone Number [facility] [address] [place] [address], [place] [phone] * Prealbumin (10/17/2024 5:31 AM EDT) Pathologist [facility] Prealbumin 20 18 - 45 mg/dL LAB CHEMISTRY METHOD 10/17/2024 12:12 PM EDT [facility] Blood Venous blood specimen / Unknown Venipuncture / Unknown 10/17/2024 5:31 AM EDT 10/17/2024 10:36 AM EDT us Steven Lopez MD LAB BLOOD ORDERABLES Final Resul t [facility] [address] [place] [address], [place] [phone] * (ABNORMAL) Lipid panel (09/07/2023) LDL/HDL Ratio 6(A) 0 - 4 Triglycerides 226(A) 0 - 150 mg/dL Cholesterol 162 0 - 200 mg/dL HDL 27(A) >=40 mg/dL LDL Cholesterol 90 0 - 100 mg/dL Blood Venous blood specimen / Unknown us Historical Provider LAB BLOOD ORDERABLES Sayda l Result * Hepatitis C Screening (05/02/2020) Hepatitis C Screening abstracted Historical Provider HEALTH MAINTENANCE Final Result from Last 3 Months or Most Recently Relevant to Health Maintenance Additional Health Concerns Infection Onset Date Last Indicated VRE 03/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
--- OUTSIDE RECORDS SUMMARY | 2024-12-22 13:28 | XMS_ITS | Encounter Summary ---
Author Organization [facility] Address [address] [place] [phone] Care Team Providers Care Aboriginal Community Council Member Name Role Phone Fidel Davis MD Primary Care Provider [phone] Encounter Details Date Type Department Care Team (Late Contact Info) Description 02/26/2024 Lab Requisition [facility] - Main Lab [address] [facility] [place] [phone] Jono Mao MD [address] [place] [address] Respiratory failure, unspecified, unspecified whether with hypoxia [...] 4:00 PM EDT Office Visit Adult Medicine [address] [phone] Fidel Davis MD [address] [place] [phone] documented as of this encounter Procedures Procedure Name Priority Date/Time Associated Diagnosis Comments COMPLETE BLOOD COUNT Routine 02/29/2024 5:16 AM EST Respiratory failure, unspecified, unspecified whether with hypoxia or hypercapnia (CMS/HCC) BASIC METABOLIC PANEL Routine 02/29/2024 5:16 AM EST Respiratory failure, unspecified, unspecified whether with hypoxia or hypercapnia (CMS/HCC) documented in this encounter Results * (ABNORMAL) Basic metabolic panel (02/29/2024 5:16 AM EST) Sodium 140 133 - 145 mmol/L LAB CHEMISTRY METHOD 02/29/2024 12:06 PM [facility] Potassium 4.5 3.5 - 5.5 mmol/L LAB CHEMISTRY METHOD 02/29/2024 12:06 PM [facility] Chloride 106 96 - 110 mmol/L LAB CHEMISTRY METHOD 02/29/2024 12:06 PM [facility] CO2 28 21 - 32 mmol/L LAB CHEMISTRY METHOD 02/29/2024 12:06 PM [facility] Anion Gap 6 3 - 11 LAB CHEMISTRY METHOD 02/29/2024 12:06 PM [facility] Glucose 65(L) 70 - 100 mg/dL LAB CHEMISTRY METHOD 02/29/2024 12:06 PM [facility] BUN 19 5 - 25 mg/dL LAB CHEMISTRY METHOD 02/29/2024 12:06 PM [facility] Creatinine 1.26 0.70 - 1.30 mg/dL LAB CHEMISTRY METHOD 02/29/2024 12:06 PM [facility] eGFR 59(L) >=60 mL/min/1. 73m2 LAB CHEMISTRY METHOD 02/29/2024 12:06 PM [facility] Comment:Calculation based on the Chronic Kidney Disease Epidemiology Collaboration (CKD-EPI) equation refit without adjustment for race. BUN/Creatinine Ratio 15.1 LAB CHEMISTRY METHOD 02/29/2024 12:06 PM [facility] Calcium 8.3(L) 8.5 - 10.5 mg/dL LAB CHEMISTRY METHOD 02/29/2024 12:06 PM [facility] Blood Venous blood specimen / Unknown Venipuncture / Unknown 02/29/2024 5:16 AM EST 02/29/2024 10:49 AM EST us Jono Mao MD LAB BLOOD ORDERABLES Final Resul t [facility] [address] [place] [address], [place] [phone] * (ABNORMAL) Complete blood count (02/29/2024 5:16 AM EST) WBC 8.2 4.8 - 10.8 K/mcL LAB HEMETOLOGY METHOD 02/29/2024 11:05 AM [facility] RBC 3.20(L) 4.50 - 5.50 M/mcL LAB HEMETOLOGY METHOD 02/29/2024 11:05 AM [facility] Hemoglobin 10.3(L) 13.5 - 17.5 g/dL LAB HEMETOLOGY METHOD 02/29/2024 11:05 AM [facility] Hematocrit 32.4(L) 42.0 - 54.0 % LAB HEMETOLOGY METHOD 02/29/2024 11:05 AM [facility] MCV 100.0(H) 79.0 - 98.0 FL LAB HEMETOLOGY METHOD 02/29/2024 11:05 AM [facility] MCH 31.8 27.0 - 32.0 pcg LAB HEMETOLOGY METHOD 02/29/2024 11:05 AM [facility] MCHC 31.8(L) 32.0 - 37.0 g/dL LAB HEMETOLOGY METHOD 02/29/2024 11:05 AM [facility] RDW 15.8(H) 11.0 - 15.0 % LAB HEMETOLOGY METHOD 02/29/2024 11:05 AM EST [facility] Platelets 236 130 - 400 K/mcL LAB HEMETOLOGY METHOD 02/29/2024 11:05 AM EST [facility] MPV 10.6 7.0 - 11.0 FL LAB HEMETOLOGY METHOD 02/29/2024 11:05 AM EST [facility] NRBC 0.0 <1.0 % LAB HEMETOLOGY METHOD 02/29/2024 11:05 AM [facility] NRBC Absolute 0.00 <0.10 K/mcL LAB HEMETOLOGY METHOD 02/29/2024 11:05 AM [facility] Blood Venous blood specimen / Unknown Venipuncture / Unknown 02/29/2024 5:16 AM EST 02/29/2024 10:49 AM EST us Jono Mao MD LAB BLOOD ORDERABLES Final Resul t [facility] [address] [place] [address], documented in this encounter Visit Diagnoses Diagnosis Respiratory failure, unspecified, unspecified whether with hypoxia or hypercapnia (CMS/HCC V24, CMS/HCC V28) documented in this encounter Additional Health Concerns Infection Onset Date Last Indicated Resolved Time VRE 03/02/2024 03/02/2024 ESBL 07/27/2024 07/27/2024 documented as of this encounter Care Teams Aboriginal Community Council Member Relationship Specialty Start Date End Date Fidel Davis MD [address] [place] [phone] PCP - General Internal Medicine 10/19/24 documented as of this encounter
--- OUTSIDE RECORDS SUMMARY | 2024-12-22 13:28 | XMS_ITS | Encounter Summary ---
Author Organization Address [id number] [place] [phone] Care Team Providers Care Permit Technician Name Role Phone Fidel Davis MD Primary Care Provider [phone] Encounter Details Date Type Department Care Team (Late Contact Info) Description 03/03/2024 Lab Requisition [facility] - Main Lab [address] [facility] [place] [phone] Jono Mao MD [address] [place], [place] [phone] Urinary tract infection, site not specified Social History Tobacco Use Types Packs/Day Years [...] 4:00 PM EDT Office Visit Adult Medicine [address] [phone] Fidel Davis MD [address] [place] [phone] documented as of this encounter Procedures Procedure Name Priority Date/Time Associated Diagnosis Comments URINALYSIS WITH REFLEX MICROSCOPIC Routine 03/02/2024 9:00 PM EST Urinary tract infection, site not specified URINALYSIS WITH REFLEX MICROSCOPIC Routine 03/02/2024 9:00 PM EST Urinary tract infection, site not specified CULTURE URINE Routine 03/02/2024 9:00 PM EST Urinary tract infection, site not specified documented in this encounter Results * (ABNORMAL) Urinalysis with reflex microscopic (03/02/2024 9:00 PM EST) Specific Deport Urine 1.018 1.003 - 1.030 LAB URINALYSIS - AUTOMATED METHOD 03/03/2024 12:15 PM [facility] pH, Urine 6.0 5.0 - 8.0 pH LAB URINALYSIS - AUTOMATED METHOD 03/03/2024 12:15 PM [facility] Leukocytes, Urine Moderate(A) Negative LAB URINALYSIS - AUTOMATED METHOD 03/03/2024 12:15 PM [facility] Nitrite, Urine Negative Negative LAB URINALYSIS - AUTOMATED METHOD 03/03/2024 12:15 PM [facility] Protein, Urine 100(A) <=Trace mg/dL LAB URINALYSIS - AUTOMATED METHOD 03/03/2024 12:15 PM [facility] Glucose, Urine Negative Negative mg/dL LAB URINALYSIS - AUTOMATED METHOD 03/03/2024 12:15 PM [facility] Ketones, Urine Negative Negative mg/dL LAB URINALYSIS - AUTOMATED METHOD 03/03/2024 12:15 PM [facility] Urobilinogen , Urine 1.0 0.2 - 1.0 mg/dL LAB URINALYSIS - AUTOMATED METHOD 03/03/2024 12:15 PM [facility] Bilirubin, Urine Small(A) Negative LAB URINALYSIS - AUTOMATED METHOD 03/03/2024 12:15 PM [facility] Blood, Urine Large(A) Negative LAB URINALYSIS - AUTOMATED METHOD 03/03/2024 12:15 PM [facility] RBC, Urine 2,348.3(H) 0 - 4 /HPF LAB URINALYSIS - AUTOMATED METHOD 03/03/2024 12:15 PM [facility] WBC, Urine 36.2(H) 0 - 4 /HPF LAB URINALYSIS - AUTOMATED METHOD 03/03/2024 12:15 PM [facility] Squamous Epithelial, Urine 3 0 - 60 /LPF LAB URINALYSIS - AUTOMATED METHOD 03/03/2024 12:15 PM [facility] Bacteria, Urine Few(A) Negative /HPF LAB URINALYSIS - AUTOMATED METHOD 03/03/2024 12:15 PM [facility] Hyaline Casts, Urine 2.0 0 - 3 /LPF LAB URINALYSIS - AUTOMATED METHOD 03/03/2024 12:15 PM [facility] Urine Urine specimen obtained by clean catch procedure / Unknown Non-blood Collection / Unknown 03/02/2024 9:00 PM EST 03/03/2024 10:45 AM EST us Jono Mao MD LAB URINE ORDERABLES Final Resul t [facility] [address] [place] [address], * (ABNORMAL) Culture urine (03/02/2024 9:00 PM EST) Culture, Urine >100,000 CFU/mL Vancomycin resistant Enterococcus faecalis(A) SHANNON 03/05/2024 8:43 AM EST [facility] Comment: Edited result: Previously reported as Enterococcus species on 03/04/2024 at 0900 EST. Urine Urine specimen obtained by clean catch procedure / Unknown Non-blood Collection / Unknown 03/02/2024 9:00 PM EST 03/03/2024 10:45 AM EST Narrative Organism Antibiotic Method Susceptibility Vancomycin resistant Enteroc occus faecalis Benzylpenicillin SHANNON 2 ug/ml: Susceptible Vancomycin resistant Enteroc occus faecalis Ampicillin SHANNON <=2 ug/ml: Susceptible Vancomycin resistant Enteroc occus faecalis Ciprofloxacin SHANNON >=8 ug/ml: Resistant Vancomycin resistant Enteroc occus faecalis Levofloxacin SHANNON >=8 ug/ml: Resistant Vancomycin resistant Enteroc occus faecalis Linezolid SHANNON 1 ug/ml: Susceptible Vancomycin resistant Enteroc occus faecalis Vancomycin SHANNON >=32 ug/ml: Resistant Vancomycin resistant Enteroc occus faecalis Tetracycline SHANNON >=16 ug/ml: Resistant Vancomycin resistant Enteroc occus faecalis Nitrofurantoin SHANNON <=16 ug/ml: Susceptible Jono Mao MD LAB MICROBIOLOGY - GENERAL ORDER LEONARDO Final Result [facility] [address] [place] [address], documented in this encounter Visit Diagnoses Diagnosis Urinary tract infection, site not specified documented in this encounter Additional Health Concerns Infection Onset Date Last Indicated Resolved Time VRE 03/02/2024 03/02/2024 ESBL 07/27/2024 07/27/2024 documented as of this encounter Care Teams Permit Technician Relationship Specialty Start Date End Date Fidel Davis MD [address] [place] [phone] PCP - General Internal Medicine 10/19/24 documented as of this encounter
--- OUTSIDE RECORDS SUMMARY | 2024-12-22 13:29 | XMS_ITS | Encounter Summary ---
Author Organization [facility] Address [address] [place] [phone] Care Team Providers Care Apparel Manager Name Role Phone Fidel Davis MD Primary Care Provider [phone] Encounter Details Date Type Department Care Team (Late Contact Info) Description 06/18/[address] [facility] - Main Lab 299 [facility] [place] [phone] Nichelle Prescott MD [address] [place] [phone] Acute kidney failure, unspecified (CMS/HCC V24); Acute respiratory failure with hypoxia (CMS/HCC V24, CMS/HCC V28) Social History Tobacco [...] 4:00 PM EDT Office Visit Adult Medicine [address] [phone] Fidel Davis MD [address] [address] documented as of this encounter Procedures Procedure Name Priority Date/Time Associated Diagnosis Comments COMPLETE BLOOD COUNT Routine 06/20/2024 8:20 AM EDT Acute kidney failure, unspecified ([facility] V24) Acute respiratory failure with hypoxia ([facility] V24, CMS/[facility] V28) BASIC METABOLIC PANEL Routine 06/20/2024 8:20 AM EDT Acute kidney failure, unspecified ([facility] V24) Acute respiratory failure with hypoxia ([facility] V24, CMS/[facility] V28) documented in this encounter Results * (ABNORMAL) Basic metabolic panel (06/20/2024 8:20 AM EDT) Sodium 139 133 - 145 mmol/L LAB CHEMISTRY METHOD 06/20/2024 2:51 PM [facility] Potassium 5.1 3.5 - 5.5 mmol/L LAB CHEMISTRY METHOD 06/20/2024 2:51 PM [facility] Comment:Hemolysis present Chloride 105 96 - 110 mmol/L LAB CHEMISTRY METHOD 06/20/2024 2:51 PM [facility] CO2 24 21 - 32 mmol/L LAB CHEMISTRY METHOD 06/20/2024 2:51 PM [facility] Anion Gap 10 3 - 11 LAB CHEMISTRY METHOD 06/20/2024 2:51 PM [facility] Glucose 68(L) 70 - 100 mg/dL LAB CHEMISTRY METHOD 06/20/2024 2:51 PM [facility] BUN 15 5 - 25 mg/dL LAB CHEMISTRY METHOD 06/20/2024 2:51 PM [facility] Creatinine 0.96 0.70 - 1.30 mg/dL LAB CHEMISTRY METHOD 06/20/2024 2:51 PM [facility] eGFR 82 >=60 mL/min/1. 73m2 LAB CHEMISTRY METHOD 06/20/2024 2:51 PM [facility] Comment:Calculation based on the Chronic Kidney Disease Epidemiology Collaboration (CKD-EPI) equation refit without adjustment for race. BUN/Creatinine Ratio 15.6 LAB CHEMISTRY METHOD 06/20/2024 2:51 PM EDT [facility] Calcium 9.3 8.5 - 10.5 mg/dL LAB CHEMISTRY METHOD 06/20/2024 2:51 PM EDT [facility] Blood Venous blood specimen / Unknown Venipuncture / Unknown 06/20/2024 8:20 AM EDT 06/20/2024 11:10 AM EDT us Nichelle Prescott MD LAB BLOOD ORDERABLES Fin al Result [facility] [address] [place] [address], * (ABNORMAL) Complete blood count (06/20/2024 8:20 AM EDT) WBC 7.7 4.8 - 10.8 K/mcL LAB HEMETOLOGY METHOD 06/20/2024 11:54 AM [facility] RBC 3.60(L) 4.50 - 5.50 M/mcL LAB HEMETOLOGY METHOD 06/20/2024 11:54 AM [facility] Hemoglobin 11.7(L) 13.5 - 17.5 g/dL LAB HEMETOLOGY METHOD 06/20/2024 11:54 AM [facility] Hematocrit 35.4(L) 42.0 - 54.0 % LAB HEMETOLOGY METHOD 06/20/2024 11:54 AM [facility] MCV 99.2(H) 79.0 - 98.0 FL LAB HEMETOLOGY METHOD 06/20/2024 11:54 AM [facility] MCH 32.8(H) 27.0 - 32.0 pcg LAB HEMETOLOGY METHOD 06/20/2024 11:54 AM [facility] MCHC 33.1 32.0 - 37.0 g/dL LAB HEMETOLOGY METHOD 06/20/2024 11:54 AM EDT [facility] RDW 16.1(H) 11.0 - 15.0 % LAB HEMETOLOGY METHOD 06/20/2024 11:54 AM EDT [facility] Platelets 301 130 - 400 K/mcL LAB HEMETOLOGY METHOD 06/20/2024 11:54 AM EDT [facility] MPV 10.7 7.0 - 11.0 FL LAB HEMETOLOGY METHOD 06/20/2024 11:54 AM EDT [facility] NRBC 0.0 <1.0 % [facility] 06/20/2024 11:54 AM EDT [facility] NRBC Absolute 0.00 <0.10 K/mcL [facility] 06/20/2024 11:54 AM EDT [facility] Blood Venous blood specimen / Unknown Venipuncture / Unknown 06/20/2024 8:20 AM EDT 06/20/2024 11:10 AM EDT Nichelle Prescott MD LAB BLOOD ORDERABLES Fin al Result [facility] [address] [place] [address], documented in this encounter Visit Diagnoses Diagnosis Acute kidney failure, unspecified (CMS/HCC V24) Acute kidney failure, unspecified Acute respiratory failure with hypoxia (CMS/HCC V24, CMS/HCC V28) documented in this encounter Additional Health Concerns Infection Onset Date Last Indicated Resolved Time VRE 03/02/2024 03/02/2024 ESBL 07/27/2024 07/27/2024 documented as of this encounter Care Teams Apparel Manager Relationship Specialty Start Date End Date Fidel Davis MD [address] [place] [phone] PCP - General Internal Medicine 10/19/24 documented as of this encounter
--- OUTSIDE RECORDS SUMMARY | 2024-12-22 13:29 | XMS_ITS | Encounter Summary ---
Author Organization [facility] Address [address] [place] [phone] Care Team Providers Care Quality Technician Name Role Phone Fidel Davis MD Primary Care Provider Encounter Details Date Type Department Care Team (Late Contact Info) Description 10/28/2024 Lab Requisition [facility] - Main Lab 299 [facility] [place] [address] Steven Lopez MD [address] [place] [address], [phone] Acute combined systolic (congestive) and diastolic (congestive) [...] 4:00 PM EDT Office Visit Adult Medicine [address] [phone] Fidel Davis MD [address] [place] [address] documented as of this encounter Procedures Procedure Name Priority Date/Time Associated Diagnosis Comments COMPLETE BLOOD COUNT Routine 11/01/2024 5:38 AM [...] V24, CMS/HCC V28) documented in this encounter Results * (ABNORMAL) Basic metabolic panel (11/01/2024 5:38 AM EDT) Sodium 129(L) 133 - 145 mmol/L LAB CHEMISTRY METHOD 11/01/2024 3:32 PM [facility] Potassium 4.9 3.5 - 5.5 mmol/L LAB CHEMISTRY METHOD 11/01/2024 3:32 PM [facility] Chloride 95(L) 96 - 110 mmol/L LAB CHEMISTRY METHOD 11/01/2024 3:32 PM [facility] CO2 24 21 - 32 mmol/L LAB CHEMISTRY METHOD 11/01/2024 3:32 PM [facility] Anion Gap 10 3 - 11 LAB CHEMISTRY METHOD 11/01/2024 3:32 PM [facility] Glucose 58(L) 70 - 100 mg/dL LAB CHEMISTRY METHOD 11/01/2024 3:32 PM [facility] BUN 26(H) 5 - 25 mg/dL LAB CHEMISTRY METHOD 11/01/2024 3:32 PM [facility] Creatinine 1.32(H) 0.70 - 1.30 mg/dL LAB CHEMISTRY METHOD 11/01/2024 3:32 PM [facility] eGFR 56(L) >=60 mL/min/1. 73m2 LAB CHEMISTRY METHOD 11/01/2024 3:32 PM EDT [facility] Comment:Calculation based on the Chronic Kidney Disease Epidemiology Collaboration (CKD-EPI) equation refit without adjustment for race. BUN/Creatinine Ratio 19.7 LAB CHEMISTRY METHOD 11/01/2024 3:32 PM EDT [facility] Calcium 8.4(L) 8.5 - 10.5 mg/dL LAB CHEMISTRY METHOD 11/01/2024 3:32 PM EDT [facility] Blood Venous blood specimen / Unknown Venipuncture / Unknown 11/01/2024 5:38 AM EDT 11/01/2024 11:05 AM EDT us Steven Lopez MD LAB BLOOD ORDERABLES Final Resul t [facility] [address] [place] [address], * (ABNORMAL) Complete blood count (11/01/2024 5:38 AM EDT) WBC 12.3(H) 4.8 - 10.8 K/[facility] LAB HEMETOLOGY METHOD 11/01/2024 11:54 AM [facility] RBC 3.70(L) 4.50 - 5.50 M/[facility] LAB HEMETOLOGY METHOD 11/01/2024 11:54 AM EDT [facility] Hemoglobin 10.9(L) 13.5 - 17.5 g/dL LAB HEMETOLOGY METHOD 11/01/2024 11:54 AM T [facility] Hematocrit 33.0(L) 42.0 - 54.0 % LAB HEMETOLOGY METHOD 11/01/2024 11:54 AM EDT [facility] MCV 89.4 79.0 - 98.0 FL LAB HEMETOLOGY METHOD [facility]/01[facility] MCH 29.5 27.0 - 32.0 pcg LAB HEMETOLOGY METHOD 11/01/2024 11:54 AM [facility] MCHC 33.0 32.0 - 37.0 g/dL LAB HEMETOLOGY METHOD 11/01/2024 11:54 AM [facility] RDW 17.8(H) 11.0 - 15.0 % LAB HEMETOLOGY METHOD 11/01/2024 11:54 AM T [facility] Platelets 324 130 - 400 K/mcL LAB HEMETOLOGY METHOD 11/01/2024 11:54 AM [facility] MPV 9.8 7.0 - 11.0 FL LAB HEMETOLOGY METHOD 11/01/2024 11:54 AM [facility] NRBC 0.0 <1.0 % LAB HEMETOLOGY METHOD 11/01/2024 11:54 AM [facility] NRBC Absolute 0.00 <0.10 K/mcL LAB HEMETOLOGY METHOD 11/01/2024 11:54 AM [facility] Blood Venous blood specimen / Unknown Venipuncture / Unknown 11/01/2024 5:38 AM EDT 11/01/2024 11:05 AM EDT us Steven Lopez MD LAB BLOOD ORDERABLES Final Resul t [facility] [address] [place] [address], documented in this encounter Visit Diagnoses Diagnosis Acute combined systolic (congestive) and diastolic (congestive) heart failure (CMS/HCC V24, CMS/HCC V28) Acute respiratory failure with hypoxia (CMS/HCC V24, CMS/HCC V28) documented in this encounter Additional Health Concerns Infection Onset Date Last Indicated Resolved Time VRE 03/02/2024 03/02/2024 ESBL 07/27/2024 07/27/2024 documented as of this encounter Care Teams Quality Technician Relationship Specialty Start Date End Date Fidel Davis MD [address] [place] [phone] PCP - General Internal Medicine 10/19/24 documented as of this encounter
--- OUTSIDE RECORDS SUMMARY | 2024-12-22 13:29 | XMS_ITS | Encounter Summary ---
Author Organization [facility] Address [address] [place] [phone] Care Team Providers Care Sheriffs Detective Name Role Phone Fidel Davis MD Primary Care Provider [phone] Encounter Details Date Type Department Care Team (Late st Contact Info) Description 10/15/2024 Lab Requisition [facility] - Main Lab 299 [facility] [place] [address] Steven Lopez MD [address] [place] [phone] Acute combined systolic (congestive) and diastolic (congestive) heart failure (CMS/HCC V24, CMS/HCC V28); Acute respiratory failure with hypoxia (CMS/HCC V24, CMS/HCC V28); Muscle weakness (generalized) Social History Tobacco Use Types Packs/Day Years [...] 4:00 PM EDT Office Visit Adult Medicine [address] [phone] Fidel Davis MD [address] [place] [address] documented as of this encounter Procedures Procedure Name Priority Date/Time Associated Diagnosis Comments COMPLETE BLOOD COUNT Routine 10/17/2024 5:31 AM EDT Acute combined systolic (congestive) and diastolic (congestive) heart failure (CMS/HCC V24, CMS/HCC V28) Acute respiratory failure with hypoxia (CMS/HCC V24, CMS/HCC V28) Muscle weakness (generalized) PREALBUMIN Routine 10/17/2024 5:31 AM EDT Acute [...] (CMS/HCC V24, CMS/HCC V28) Muscle weakness (generalized) documented in this encounter Results * Prealbumin (10/17/2024 5:31 AM EDT) Pathologist [facility] Prealbumin 20 18 - 45 mg/dL LAB CHEMISTRY METHOD 10/17/2024 12:12 PM EDT [facility] Blood Venous blood specimen / Unknown Venipuncture / Unknown 10/17/2024 5:31 AM EDT 10/17/2024 10:36 AM EDT us Steven Lopez MD LAB BLOOD ORDERABLES Final Resul t [facility] [address] [place] [address], * (ABNORMAL) Basic metabolic panel (10/17/2024 5:31 AM EDT) Pathologist [facility] Sodium 134 133 - 145 mmol/L LAB CHEMISTRY METHOD 10/17/2024 12:12 PM EDT [facility] Potassium 4.8 3.5 - 5.5 mmol/L LAB CHEMISTRY METHOD 10/17/2024 12:12 PM [facility] Chloride 101 96 - 110 mmol/L LAB CHEMISTRY METHOD 10/17/2024 12:12 PM [facility] CO2 23 21 - 32 mmol/L LAB CHEMISTRY METHOD 10/17/2024 12:12 PM [facility] Anion Gap 10 3 - 11 LAB CHEMISTRY METHOD 10/17/2024 12:12 PM [facility] Glucose 50(L) 70 - 100 mg/dL LAB CHEMISTRY METHOD 10/17/2024 12:12 PM [facility] BUN 17 5 - 25 mg/dL LAB CHEMISTRY METHOD 10/17/2024 12:12 PM [facility] Creatinine 1.06 0.70 - 1.30 mg/dL LAB CHEMISTRY METHOD 10/17/2024 12:12 PM [facility] eGFR 73 >=60 mL/min/1. 73m2 LAB CHEMISTRY METHOD 10/17/2024 12:12 PM [facility] Comment:Calculation based on the Chronic Kidney Disease Epidemiology Collaboration (CKD-EPI) equation refit without adjustment for race. BUN/Creatinine Ratio 16.0 LAB CHEMISTRY METHOD 10/17/2024 12:12 PM [facility] Calcium 8.6 8.5 - 10.5 mg/dL LAB CHEMISTRY METHOD 10/17/2024 12:12 PM [facility] Blood Venous blood specimen / Unknown Venipuncture / Unknown 10/17/2024 5:31 AM EDT 10/17/2024 10:36 AM EDT us Steven Lopez MD LAB BLOOD ORDERABLES Final Resul t [facility] [address] [place] [address], [place] [phone] * (ABNORMAL) Complete blood count (10/17/2024 5:31 AM EDT) [facility] WBC 12.6(H) 4.8 - 10.8 K/mcL LAB HEMETOLOGY METHOD [facility] RBC 3.80(L) 4.50 - 5.50 M/mcL LAB HEMETOLOGY METHOD 10/17/2024 1:04 PM EDT [facility] Hemoglobin 11.2(L) 13.5 - 17.5 g/dL LAB HEMETOLOGY METHOD 10/17[facility]2024 [facility] Hematocrit 35.1(L) 42.0 - 54.0 % LAB HEMETOLOGY METHOD 10/17/2024 1:[facility] MCV 93.4 79.0 - 98.0 FL LAB HEMETOLOGY METHOD 10/17/2024 1:04 [facility] MCH 29.8 27.0 - 32.0 pcg LAB HEMETOLOGY METHOD 10/17/2024 1:[facility] MCHC 31.9(L) 32.0 - 37.0 g/dL LAB HEMETOLOGY METHOD 10/17/2024 1:04 [facility] RDW 18.5(H) 11.0 - 15.0 % LAB HEMETOLOGY METHOD 10/17/2024 1:[facility] Platelets 569(H) 130 - 400 K/mcL LAB HEMETOLOGY METHOD 10/17/2024 1:04 [facility] MPV 10.3 7.0 - 11.0 FL LAB HEMETOLOGY METHOD 10/17/2024 1:[facility] NRBC 0.0 <1.0 % LAB HEMETOLOGY METHOD 10/17/2024 1:04 PM EDT [facility] NRBC Absolute 0.00 <0.10 K/mcL LAB HEMETOLOGY METHOD 10/17/2024 1:04 PM EDT [facility] Blood Venous blood specimen / Unknown Venipuncture / Unknown 10/17/2024 5:31 AM EDT 10/17/2024 10:36 AM EDT us Steven Lopez MD LAB BLOOD ORDERABLES Final Resul t [facility] [address] [place] [address], documented in this encounter Visit Diagnoses Diagnosis Acute combined systolic (congestive) and diastolic (congestive) heart failure (CMS/HCC V24, CMS/HCC V28) Acute respiratory failure with hypoxia (CMS/HCC V24, CMS/HCC V28) Muscle weakness (generalized) documented in this encounter Additional Health Concerns Infection Onset Date Last Indicated Resolved Time 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
--- OUTSIDE RECORDS SUMMARY | 2024-12-22 13:29 | XMS_ITS | Encounter Summary ---
Author Organization [facility] Address [address] [place] [phone] Care Team Providers Care School Administrator Name Role Phone Fidel Davis MD Primary Care Provider [phone] Encounter Details Date Type Department Care Team (Late st Contact Info) Description 03/19/2024 Lab Requisition [facility] - Main Lab 299 [facility] [place] [address] Steven Lopez MD [address] [place] [phone] Respiratory failure, unspecified, unspecified whether with [...] 4:00 PM EDT Office Visit Adult Medicine [address] [phone] Fidel Davis MD [address] [place] [phone] documented as of this encounter Procedures Procedure Name Priority Date/Time Associated Diagnosis Comments COMPLETE BLOOD COUNT Routine 03/21/2024 5:43 AM EST Respiratory failure, unspecified, unspecified whether with hypoxia or hypercapnia (CMS/HCC) BASIC METABOLIC PANEL Routine 03/21/2024 5:43 AM EST Respiratory failure, unspecified, unspecified whether with hypoxia or hypercapnia (CMS/HCC) documented in this encounter Results * Basic metabolic panel (03/21/2024 5:43 AM EST) Pathologist [facility] Sodium 138 133 - 145 mmol/L LAB CHEMISTRY METHOD 03/21/2024 1:25 PM [facility] Potassium 4.6 3.5 - 5.5 mmol/L LAB CHEMISTRY METHOD 03/21/2024 1:25 PM [facility] Chloride 104 96 - 110 mmol/L LAB CHEMISTRY METHOD 03/21/2024 1:25 PM [facility] CO2 27 21 - 32 mmol/L LAB CHEMISTRY METHOD 03/21/2024 1:25 PM [facility] Anion Gap 7 3 - 11 LAB CHEMISTRY METHOD 03/21/2024 1:25 PM [facility] Glucose 82 70 - 100 mg/dL LAB CHEMISTRY METHOD 03/21/2024 1:25 PM [facility] BUN 19 5 - 25 mg/dL LAB CHEMISTRY METHOD 03/21/2024 1:25 PM [facility] Creatinine 1.13 0.70 - 1.30 mg/dL LAB CHEMISTRY METHOD 03/21/2024 1:25 PM [facility] eGFR 68 >=60 mL/min/1. 73m2 LAB CHEMISTRY METHOD 03/21/2024 1:25 PM [facility] Comment:Calculation based on the Chronic Kidney Disease Epidemiology Collaboration (CKD-EPI) equation refit without adjustment for race. BUN/Creatinine Ratio 16.8 LAB CHEMISTRY METHOD 03/21/2024 1:25 PM [facility] Calcium 8.5 8.5 - 10.5 mg/dL LAB CHEMISTRY METHOD 03/21/2024 1:25 PM [facility] Blood Venous blood specimen / Unknown Venipuncture / Unknown 03/21/2024 5:43 AM EST 03/21/2024 11:53 AM EST us Steven Lopez MD LAB BLOOD ORDERABLES Final Resul t [facility] [address] [place] [address], * (ABNORMAL) Complete blood count (03/21/2024 5:43 AM EST) WBC 7.6 4.8 - 10.8 K/mcL LAB HEMETOLOGY METHOD 03/21/2024 1:20 PM [facility] RBC 3.50(L) 4.50 - 5.50 M/mcL LAB HEMETOLOGY METHOD 03/21/2024 1:20 PM [facility] Hemoglobin 11.1(L) 13.5 - 17.5 g/dL LAB HEMETOLOGY METHOD 03/21/2024 1:20 PM [facility] Hematocrit 35.2(L) 42.0 - 54.0 % LAB HEMETOLOGY METHOD 03/21/2024 1:20 PM [facility] MCV 100.6(H) 79.0 - 98.0 FL LAB HEMETOLOGY METHOD 03/21/2024 1:20 PM [facility] MCH 31.7 27.0 - 32.0 pcg LAB HEMETOLOGY METHOD 03/21/2024 1:20 PM [facility] MCHC 31.5(L) 32.0 - 37.0 g/dL LAB HEMETOLOGY METHOD 03/21/2024 1:20 PM [facility] RDW 16.0(H) 11.0 - 15.0 % LAB HEMETOLOGY METHOD 03/21/2024 1:20 PM EST [facility] Platelets 291 130 - 400 K/mcL LAB HEMETOLOGY METHOD 03/21/2024 1:20 PM EST [facility] MPV 10.9 7.0 - 11.0 FL LAB HEMETOLOGY METHOD 03/21/2024 1:20 PM EST [facility] NRBC 0.0 <1.0 % LAB HEMETOLOGY METHOD 03/21/2024 1:20 PM EST [facility] NRBC Absolute 0.00 <0.10 K/mcL LAB HEMETOLOGY METHOD 03/21/2024 1:20 PM EST [facility] Blood Venous blood specimen / Unknown Venipuncture / Unknown 03/21/2024 5:43 AM EST 03/21/2024 11:53 AM EST us Steven Lopez MD LAB BLOOD ORDERABLES Final Resul t [facility] [address] [place] [address], documented in this encounter Visit Diagnoses Diagnosis Respiratory failure, unspecified, unspecified whether with hypoxia or hypercapnia (CMS/HCC V24, CMS/HCC V28) documented in this encounter Additional Health Concerns Infection Onset Date Last Indicated Resolved Time VRE 03/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
--- OUTSIDE RECORDS SUMMARY | 2024-12-22 13:29 | XMS_ITS | Encounter Summary ---
Author Organization [facility] Address [address] [place] [phone] Care Team Providers Care Maintenance Department Manager Name Role Phone Fidel Davis MD Primary Care Provider [phone] Encounter Details Date Type Department Care Team (Late st Contact Info) Description 04/01/2024 Lab Requisition [facility] - Main Lab 299 [facility] [place] [address] Steven Lopez MD [address] [place] [phone] Respiratory failure, unspecified, unspecified whether with [...] 4:00 PM EDT Office Visit Adult Medicine [address] [phone] Fidel Davis MD [address] [place] [phone] documented as of this encounter Visit Diagnoses Diagnosis Respiratory failure, unspecified, unspecified whether with hypoxia or hypercapnia (CMS/HCC V24, [facility] V28) documented in this encounter Additional Health Concerns Infection Onset Date Last Indicated Resolved Time VRE 03/02/2024 03/02/2024 ESBL 07/27/2024 07/27/2024 documented as of this encounter Care Teams Maintenance Department Manager Relationship Specialty Start Date End Date Fidel Davis MD [address] [place] [phone] PCP - General Internal Medicine 10/19/24 documented as of this encounter
--- OUTSIDE RECORDS SUMMARY | 2024-12-22 13:29 | XMS_ITS | Encounter Summary ---
Author Organization [facility] Address [address] [place] [phone] Care Team Providers Care Food Counselor Name Role Phone Fidel Davis MD Primary Care Provider [phone] Encounter Details Date Type Department Care Team (Late st Contact Info) Description 10/07/2024 Lab Requisition [facility] - Main Lab 299 [facility] [place] [address] Steven Lopez MD [address] [place] [address], [phone] Acute combined systolic (congestive) and diastolic (congestive) heart failure (CMS/HCC V24, CMS/HCC V28); Acute respiratory failure with hypoxia (CMS/HCC V24, CMS/HCC V28); Acute kidney failure, unspecified (CMS/HCC V24) Social History Tobacco Use Types Packs/Day Years [...] 4:00 PM EDT Office Visit Adult Medicine [address] [phone] Fidel Davis MD [address] [place] [phone] documented as of this encounter Visit Diagnoses Diagnosis Acute combined systolic (congestive) and diastolic (congestive) heart failure ([facility] V24, [facility] V28) Acute respiratory failure with hypoxia ([facility] V24, [facility] V28) Acute kidney failure, unspecified ([facility] V24) Acute kidney failure, unspecified documented in this encounter Additional Health Concerns Infection Onset Date Last Indicated Resolved Time VRE 03/02/2024 03/02/2024 ESBL 07/27/2024 07/27/2024 documented as of this encounter Care Teams Food Counselor Relationship Specialty Start Date End Date Fidel Davis MD [address] [place] [phone] PCP - General Internal Medicine 10/19/24 documented as of this encounter
--- OUTSIDE RECORDS SUMMARY | 2024-12-22 13:29 | XMS_ITS | Encounter Summary ---
Author Organization [facility] Address [id number] [place] [phone] Care Team Providers Care Heater Helper Forge Name Role Phone Fidel Davis MD Primary Care Provider [phone] Encounter Details Date Type Department Care Team (Late st Contact Info) Description 03/11/2024 Lab Requisition [facility] - Main Lab 299 [facility] [place] [address] Steven Lopez MD [address] [place] [phone] Respiratory failure, unspecified, unspecified whether with [...] 4:00 PM EDT Office Visit Adult Medicine [address] [phone] Fidel Davis MD [address] [place] [phone] documented as of this encounter Procedures Procedure Name Priority Date/Time Associated Diagnosis Comments COMPLETE BLOOD COUNT Routine 03/14/2024 5:28 AM EST Respiratory failure, unspecified, unspecified whether with hypoxia or hypercapnia (CMS/HCC) BASIC METABOLIC PANEL Routine 03/14/2024 5:28 AM EST Respiratory failure, unspecified, unspecified whether with hypoxia or hypercapnia (CMS/HCC) documented in this encounter Results * Basic metabolic panel (03/14/2024 5:28 AM EST) Pathologist [facility] Sodium 139 133 - 145 mmol/L LAB CHEMISTRY METHOD 03/14/2024 1:[address] [facility] Potassium 4.5 3.5 - 5.5 mmol/L LAB CHEMISTRY METHOD 03/14/2024 1:[address] [facility] Chloride 106 96 - 110 mmol/L LAB CHEMISTRY METHOD 03/14/2024 1:[address] [facility] CO2 25 21 - 32 mmol/L LAB CHEMISTRY METHOD 03/14/2024 1:[address] [facility] Anion Gap 8 3 - 11 LAB CHEMISTRY METHOD 03/14/2024 1:[address] [facility] Glucose 76 70 - 100 mg/dL LAB CHEMISTRY METHOD 03/14/2024 1:[address] [facility] BUN 15 5 - 25 mg/dL LAB CHEMISTRY METHOD 03/14/2024 1:[address] [facility] Creatinine 1.12 0.70 - 1.30 mg/dL LAB CHEMISTRY METHOD 03/14/2024 1:[address] [facility] eGFR 69 >=60 mL/min/1. 73m2 LAB CHEMISTRY METHOD 03/14/2024 1:[address] [facility] Comment:Calculation based on the Chronic Kidney Disease Epidemiology Collaboration (CKD-EPI) equation refit without adjustment for race. BUN/Creatinine Ratio 13.4 LAB CHEMISTRY METHOD 03/14/2024 1:[address] [facility] Calcium 8.6 8.5 - 10.5 mg/dL LAB CHEMISTRY METHOD 03/14/2024 1:[address] [facility] Blood Venous blood specimen / Unknown Venipuncture / Unknown 03/14/2024 5:28 AM EST 03/14/2024 11:04 AM EST us Steven Lopez MD LAB BLOOD ORDERABLES Final Resul t [facility] [address] [place] [address], * (ABNORMAL) Complete blood count (03/14/2024 5:28 AM EST) WBC 7.2 4.8 - 10.8 K/mcL LAB HEMETOLOGY METHOD 03/14/2024 2:[address] [facility] RBC 3.60(L) 4.50 - 5.50 M/mcL LAB HEMETOLOGY METHOD 03/14/2024 2:[address] [facility] Hemoglobin 11.3(L) 13.5 - 17.5 g/dL LAB HEMETOLOGY METHOD 03/14/2024 2:[address] [facility] Hematocrit 36.3(L) 42.0 - 54.0 % LAB HEMETOLOGY METHOD 03/14/2024 2:[address] [facility] MCV 101.1(H) 79.0 - 98.0 FL LAB HEMETOLOGY METHOD 03/14/2024 2:[address] [facility] MCH 31.5 27.0 - 32.0 pcg LAB HEMETOLOGY METHOD 03/14/2024 2:[address] [facility] MCHC 31.1(L) 32.0 - 37.0 g/dL LAB HEMETOLOGY METHOD 03/14/2024 2:[address] [facility] RDW 16.0(H) 11.0 - 15.0 % LAB HEMETOLOGY METHOD 03/14/2024 2:14 PM EST [facility] Platelets 304 130 - 400 K/mcL LAB HEMETOLOGY METHOD 03/14/2024 2:14 PM EST [facility] MPV 10.5 7.0 - 11.0 FL LAB HEMETOLOGY METHOD 03/14/2024 2:14 PM EST [facility] NRBC 0.0 <1.0 % LAB HEMETOLOGY METHOD 03/14/2024 2:14 PM EST [facility] NRBC Absolute 0.00 <0.10 K/mcL LAB HEMETOLOGY METHOD 03/14/2024 2:14 PM EST [facility] Blood Venous blood specimen / Unknown Venipuncture / Unknown 03/14/2024 5:28 AM EST 03/14/2024 11:04 AM EST us Steven Lopez MD LAB BLOOD ORDERABLES Final Resul t [facility] [address] [place] [address], documented in this encounter Visit Diagnoses Diagnosis Respiratory failure, unspecified, unspecified whether with hypoxia or hypercapnia (CMS/HCC V24, CMS/HCC V28) documented in this encounter Additional Health Concerns Infection Onset Date Last Indicated Resolved Time VRE 03/02/2024 03/02/2024 ESBL 07/27/2024 07/27/2024 documented as of this encounter Care Teams Heater Helper Forge Relationship Specialty Start Date End Date Fidel Davis MD [address] [place] [phone] PCP - General Internal Medicine 10/19/24 documented as of this encounter
--- OUTSIDE RECORDS SUMMARY | 2024-12-22 13:29 | XMS_ITS | Encounter Summary ---
Author Organization [facility] Address [address] [place] [phone] Care Team Providers Care Cloak Room Attendant Name Role Phone Fidel Davis MD Primary Care Provider [phone] Encounter Details Date Type Department Care Team (Late Contact Info) Description 05/29/2024 Lab Requisition [facility] - Main Lab 299 [facility] [place] [phone] Nichelle Prescott MD [address] [place] [phone] Acute kidney failure, unspecified (CMS/HCC V24); Acute [...] 4:00 PM EDT Office Visit Adult Medicine [address] [phone] Fidel Davis MD [address] [place] [address] documented as of this encounter Procedures Procedure Name Priority Date/Time Associated Diagnosis Comments COMPLETE BLOOD COUNT Routine 05/30/2024 8:12 AM EDT Acute kidney failure, unspecified (CMS/HCC) Acute respiratory failure with hypoxia BASIC METABOLIC PANEL Routine 05/30/2024 8:12 AM EDT Acute kidney failure, unspecified (CMS/HCC) Acute respiratory failure with hypoxia documented in this encounter Results * Basic metabolic panel (05/30/2024 8:12 AM EDT) Sodium 139 133 - 145 mmol/L LAB CHEMISTRY METHOD 05/30/2024 11:24 AM [facility] Potassium 4.7 3.5 - 5.5 mmol/L LAB CHEMISTRY METHOD 05/30/2024 11:24 AM [facility] Chloride 105 96 - 110 mmol/L LAB CHEMISTRY METHOD 05/30/2024 11:24 AM [facility] CO2 30 21 - 32 mmol/L LAB CHEMISTRY METHOD 05/30/2024 11:24 AM [facility] Anion Gap 4 3 - 11 LAB CHEMISTRY METHOD 05/30/2024 11:24 AM [facility] Glucose 81 70 - 100 mg/dL LAB CHEMISTRY METHOD 05/30/2024 11:24 AM [facility] BUN 14 5 - 25 mg/dL LAB CHEMISTRY METHOD 05/30/2024 11:24 AM [facility] Creatinine 1.00 0.70 - 1.30 mg/dL LAB CHEMISTRY METHOD 05/30/2024 11:24 AM [facility] eGFR 78 >=60 mL/min/1. 73m2 LAB CHEMISTRY METHOD 05/30/2024 11:24 AM [facility] Comment:Calculation based on the Chronic Kidney Disease Epidemiology Collaboration (CKD-EPI) equation refit without adjustment for race. BUN/Creatinine Ratio 14.0 LAB CHEMISTRY METHOD 05/30/2024 11:24 AM [facility] Calcium 8.7 8.5 - 10.5 mg/dL LAB CHEMISTRY METHOD 05/30/2024 11:24 AM EDT [facility] Blood Venous blood specimen / Unknown Venipuncture / Unknown 05/30/2024 8:12 AM EDT 05/30/2024 10:19 AM EDT us Nichelle Prescott MD LAB BLOOD ORDERABLES Fin al Result [facility] [address] [place] [address], * (ABNORMAL) Complete blood count (05/30/2024 8:12 AM EDT) WBC 8.1 4.8 - 10.8 K/mcL LAB HEMETOLOGY METHOD 05/30/2024 10:56 AM EDT [facility] RBC 3.40(L) 4.50 - 5.50 M/mcL LAB HEMETOLOGY METHOD 05/30/2024 10:56 AM [facility] Hemoglobin 10.7(L) 13.5 - 17.5 g/dL LAB HEMETOLOGY METHOD 05/30/2024 10:56 AM [facility] Hematocrit 33.8(L) 42.0 - 54.0 % LAB HEMETOLOGY METHOD 05/30/2024 10:56 AM [facility] MCV 99.4(H) 79.0 - 98.0 FL LAB HEMETOLOGY METHOD 05/30/2024 10:56 AM [facility] MCH 31.5 27.0 - 32.0 pcg LAB HEMETOLOGY METHOD 05/30/2024 10:56 AM [facility] MCHC 31.7(L) 32.0 - 37.0 g/dL LAB HEMETOLOGY METHOD 05/30/2024 10:56 AM EDT [facility] RDW 16.6(H) 11.0 - 15.0 % LAB HEMETOLOGY METHOD 05/30/2024 10:56 AM EDT [facility] Platelets 370 130 - 400 K/mcL LAB HEMETOLOGY METHOD 05/30/2024 10:56 AM EDT [facility] MPV 10.4 7.0 - 11.0 FL LAB HEMETOLOGY METHOD 05/30/2024 10:56 AM EDT [facility] NRBC 0.0 <1.0 % LAB HEMETOLOGY METHOD 05/30/2024 10:56 AM EDT [facility] NRBC Absolute 0.00 <0.10 K/mcL LAB HEMETOLOGY METHOD 05/30/2024 10:56 AM EDT [facility] Blood Venous blood specimen / Unknown Venipuncture / Unknown 05/30/2024 8:12 AM EDT 05/30/2024 10:19 AM EDT us Nichelle Prescott MD LAB BLOOD ORDERABLES Fin al Result [facility] [address] [place] [address], documented in this encounter Visit Diagnoses Diagnosis Acute kidney failure, unspecified (CMS/HCC V24) Acute kidney failure, unspecified Acute respiratory failure with hypoxia (CMS/HCC V24, CMS/HCC V28) documented in this encounter Additional Health Concerns Infection Onset Date Last Indicated Resolved Time VRE 03/02/2024 03/02/2024 ESBL 07/27/2024 07/27/2024 documented as of this encounter Care Teams Cloak Room Attendant Relationship Specialty Start Date End Date Fidel Davis MD [address] [place] [phone] PCP - General Internal Medicine 10/19/24 documented as of this encounter
--- OUTSIDE RECORDS SUMMARY | 2024-12-22 13:29 | XMS_ITS | Encounter Summary ---
Author Organization [facility] Address [address] [place] [phone] Care Team Providers Care Copy Messenger Name Role Phone Fidel Davis MD Primary Care Provider Encounter Details Date Type Department Care Team (Late st Contact Info) Description 03/26/2024 Lab Requisition [facility] - Main Lab 299 [facility] [place] [address] Steven Lopez MD [address] [place] [phone] Respiratory failure, unspecified, unspecified whether with [...] PM EDT Office Visit Adult Medicine [address] [phone] Fidel Davis MD [address] [place] [phone] documented as of this encounter Procedures Procedure Name Priority Date/Time Associated Diagnosis Comments COMPLETE BLOOD COUNT Routine 03/28/2024 5:09 AM EST Respiratory failure, unspecified, unspecified whether with hypoxia or hypercapnia (CMS/HCC) BASIC METABOLIC PANEL Routine 03/28/2024 5:09 AM EST Respiratory failure, unspecified, unspecified whether with hypoxia or hypercapnia (CMS/HCC) documented in this encounter Results * Basic metabolic panel (03/28/2024 5:09 AM EST) Sodium 137 133 - 145 mmol/L LAB CHEMISTRY METHOD 03/28/2024 12:10 PM [facility] Potassium 4.6 3.5 - 5.5 mmol/L LAB CHEMISTRY METHOD 03/28/2024 12:10 PM [facility] Chloride 104 96 - 110 mmol/L LAB CHEMISTRY METHOD 03/28/2024 12:10 PM [facility] CO2 28 21 - 32 mmol/L LAB CHEMISTRY METHOD 03/28/2024 12:10 PM [facility] Anion Gap 5 3 - 11 LAB CHEMISTRY METHOD 03/28/2024 12:10 PM [facility] Glucose 80 70 - 100 mg/dL LAB CHEMISTRY METHOD 03/28/2024 12:10 PM [facility] BUN 17 5 - 25 mg/dL LAB CHEMISTRY METHOD 03/28/2024 12:10 PM [facility] Creatinine 1.22 0.70 - 1.30 mg/dL LAB CHEMISTRY METHOD 03/28/2024 12:10 PM [facility] eGFR 62 >=60 mL/min/1. 73m2 LAB CHEMISTRY METHOD 03/28/2024 12:10 PM [facility] Comment:Calculation based on the Chronic Kidney Disease Epidemiology Collaboration (CKD-EPI) equation refit without adjustment for race. BUN/Creatinine Ratio 13.9 LAB CHEMISTRY METHOD 03/28/2024 12:10 PM [facility] Calcium 8.5 8.5 - 10.5 mg/dL LAB CHEMISTRY METHOD 03/28/2024 12:10 PM [facility] Blood Venous blood specimen / Unknown Venipuncture / Unknown 03/28/2024 5:09 AM EST 03/28/2024 11:17 AM EST us Steven Lopez MD LAB BLOOD ORDERABLES Final Resul t [facility] [address] [place] [address], * (ABNORMAL) Complete blood count (03/28/2024 5:09 AM EST) WBC 8.0 4.8 - 10.8 K/mcL LAB HEMETOLOGY METHOD 03/28/2024 12:42 PM [facility] RBC 3.50(L) 4.50 - 5.50 M/mcL LAB HEMETOLOGY METHOD 03/28/2024 12:42 PM [facility] Hemoglobin 11.0(L) 13.5 - 17.5 g/dL LAB HEMETOLOGY METHOD 03/28/2024 12:42 PM [facility] Hematocrit 34.3(L) 42.0 - 54.0 % LAB HEMETOLOGY METHOD 03/28/2024 12:42 PM [facility] MCV 98.3(H) 79.0 - 98.0 FL LAB HEMETOLOGY METHOD 03/28/2024 12:42 PM [facility] MCH 31.5 27.0 - 32.0 pcg LAB HEMETOLOGY METHOD 03/28/2024 12:42 PM [facility] MCHC 32.1 32.0 - 37.0 g/dL LAB HEMETOLOGY METHOD 03/28/2024 12:42 PM [facility] RDW 15.8(H) 11.0 - 15.0 % LAB HEMETOLOGY METHOD 03/28/2024 12:[address] [facility] Platelets 319 130 - 400 K/mcL LAB HEMETOLOGY METHOD 03/28/2024 12:[address] [facility] MPV 10.3 7.0 - 11.0 FL LAB HEMETOLOGY METHOD 03/28/2024 12:[address] [facility] NRBC 0.0 <1.0 % LAB HEMETOLOGY METHOD 03/28/2024 12:42 PM [facility] NRBC Absolute 0.00 <0.10 K/mcL LAB HEMETOLOGY METHOD 03/28/2024 12:42 PM [facility] Blood Venous blood specimen / Unknown Venipuncture / Unknown 03/28/2024 5:09 AM EST 03/28/2024 11:17 AM EST us Steven Lopez MD LAB BLOOD ORDERABLES Final Resul t [facility] [address] [place] [address], documented in this encounter Visit Diagnoses Diagnosis Respiratory failure, unspecified, unspecified whether with hypoxia or hypercapnia (CMS/HCC V24, CMS/HCC V28) documented in this encounter Additional Health Concerns Infection Onset Date Last Indicated Resolved Time VRE 03/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
--- OUTSIDE RECORDS SUMMARY | 2024-12-22 13:29 | XMS_ITS | Encounter Summary ---
Author Organization [facility] Address [address] [place] [phone] Care Team Providers Care Production Supervisor Trainee Name Role Phone Fidel Davis MD Primary Care Provider [phone] Encounter Details Date Type Department Care Team (Late st Contact Info) Description 11/04/2024 Lab Requisition [facility] - Main Lab 299 [facility] [place] [address] Steven Lopez MD [address] [place] [phone] Chronic combined systolic (congestive) and diastolic (congestive) heart failure (CMS/HCC V24, CMS/HCC V28) Social History Tobacco [...] 4:00 PM EDT Office Visit Adult Medicine [address] [phone] Fidel Davis MD [address] [place] [phone] documented as of this encounter Procedures Procedure Name Priority Date/Time Associated Diagnosis Comments CBC WITH AUTO DIFFERENTIAL Routine 11/04/2024 5:10 AM EDT Chronic combined systolic (congestive) and diastolic (congestive) heart failure (CMS/HCC V24, CMS/HCC V28) CBC AND DIFFERENTIAL Routine 11/04/2024 5:10 AM EDT Chronic combined systolic (congestive) and diastolic (congestive) heart failure (CMS/HCC V24, CMS/HCC V28) documented in this encounter Results * (ABNORMAL) CBC auto differential (11/04/2024 5:10 AM EDT) [facility] WBC 10.8 4.8 - 10.8 K/mcL LAB HEMETOLOGY METHOD 11/04/2024 8:57 AM [facility] RBC 3.70(L) 4.50 - 5.50 M/mcL LAB HEMETOLOGY METHOD 11/04/2024 8:57 AM [facility] Hemoglobin 10.7(L) 13.5 - 17.5 g/dL LAB HEMETOLOGY METHOD 11/04/2024 8:57 AM [facility] Hematocrit 32.6(L) 42.0 - 54.0 % LAB HEMETOLOGY METHOD 11/04/2024 8:57 AM [facility] MCV 88.3 79.0 - 98.0 FL LAB HEMETOLOGY METHOD 11/04/2024 8:57 AM [facility] MCH 29.0 27.0 - 32.0 pcg LAB HEMETOLOGY METHOD 11/04/2024 8:57 AM [facility] MCHC 32.8 32.0 - 37.0 g/dL LAB HEMETOLOGY METHOD 11/04/2024 8:57 AM [facility] RDW 18.3(H) 11.0 - 15.0 % LAB HEMETOLOGY METHOD 11/04/2024 8:57 AM [facility] Platelets 340 130 - 400 K/mcL LAB HEMETOLOGY METHOD 11/04/2024 8:57 AM [facility] MPV 9.7 7.0 - 11.0 FL LAB HEMETOLOGY METHOD 11/04/2024 8:57 AM [facility] NRBC 0.0 <1.0 % LAB HEMETOLOGY METHOD 11/04/2024 8:57 AM [facility] NRBC Absolute 0.00 <0.10 K/mcL LAB HEMETOLOGY METHOD 11/04/2024 8:57 AM [facility] Neutrophils Relative 74.9 % LAB HEMETOLOGY METHOD 11/04/2024 8:57 AM [facility] Lymphocytes Relative 14.4 % LAB HEMETOLOGY METHOD 11/04/2024 8:57 AM [facility] Monocytes Relative 9.4 % LAB HEMETOLOGY METHOD 11/04/2024 8:57 AM [facility] Eosinophils Relative 0.2 % LAB HEMETOLOGY METHOD 11/04/2024 8:57 AM [facility] Basophils Relative 0.3 % LAB HEMETOLOGY METHOD 11/04/2024 8:57 AM [facility] Immature Granulocytes Relative 0.8 % LAB HEMETOLOGY METHOD 11/04/2024 8:57 AM [facility] Neutrophils Absolute 8.12(H) 1.50 - 7.00 K/mcL LAB HEMETOLOGY METHOD 11/04/2024 8:57 AM [facility] Lymphocytes Absolute 1.56 1.00 - 5.00 K/mcL LAB HEMETOLOGY METHOD 11/04/2024 8:57 AM [facility] Monocytes Absolute 1.02(H) 0.20 - 1.00 K/mcL LAB HEMETOLOGY METHOD 11/04/2024 8:57 AM [facility] Eosinophils Absolute 0.02 0.00 - 0.50 K/mcL LAB HEMETOLOGY METHOD 11/04/2024 8:57 AM EDT [facility] Basophils Absolute 0.03 0.00 - 0.20 K/mcL LAB HEMETOLOGY METHOD 11/04/2024 8:57 AM EDT [facility] Immature Granulocytes Absolute 0.09(H) 0.00 - 0.03 K/mcL LAB HEMETOLOGY METHOD 11/04/2024 8:57 AM EDT [facility] Blood Venous blood specimen / Unknown Venipuncture / Unknown 11/04/2024 5:10 AM EDT 11/04/2024 8:45 AM EDT us Steven Lopez MD LAB BLOOD ORDERABLES Final Resul t [facility] [address] [place] [address], documented in this encounter Visit Diagnoses Diagnosis Chronic combined systolic (congestive) and diastolic (congestive) heart failure (CMS/HCC V24, CMS/HCC V28) documented in this encounter Additional Health Concerns Infection Onset Date Last Indicated Resolved Time VRE 03/02/2024 03/02/2024 ESBL 07/27/2024 07/27/2024 documented as of this encounter Care Teams Production Supervisor Trainee Relationship Specialty Start Date End Date Fidel Davis MD [address] [place] [phone] PCP - General Internal Medicine 10/19/24 documented as of this encounter
--- OUTSIDE RECORDS SUMMARY | 2024-12-22 13:29 | XMS_ITS | Encounter Summary ---
Author Organization [facility] Address [address] [place] [phone] Care Team Providers Care Photography Assistant Name Role Phone Fidel Davis MD Primary Care Provider Encounter Details Date Type Department Care Team (Late Contact Info) Description 09/30/2024 Lab Requisition [facility] - Main Lab 299 [facility] [place] [address] Steven Lopez MD [address] [place] [address], [phone] Acute combined systolic (congestive) and diastolic [...] 4:00 PM EDT Office Visit Adult Medicine [address] [phone] Fidel Davis MD [address] [place] [address] documented as of this encounter Procedures Procedure Name Priority Date/Time Associated Diagnosis Comments COMPLETE BLOOD COUNT Routine 10/03/2024 6:12 AM [...] documented in this encounter Results * (ABNORMAL) Complete blood count (10/03/2024 6:12 AM EDT) [facility] WBC 11.0(H) 4.8 - 10.8 K/mcL LAB HEMETOLOGY METHOD 10/03/2024 12:54 PM [facility] RBC 3.80(L) 4.50 - 5.50 M/mcL LAB HEMETOLOGY METHOD 10/03/2024 12:54 PM [facility] Hemoglobin 11.2(L) 13.5 - 17.5 g/dL LAB HEMETOLOGY METHOD 10/03/2024 12:54 PM [facility] Hematocrit 35.7(L) 42.0 - 54.0 % LAB HEMETOLOGY METHOD 10/03/2024 12:54 PM [facility] MCV 93.2 79.0 - 98.0 FL LAB HEMETOLOGY METHOD 10/03/2024 12:54 PM [facility] MCH 29.2 27.0 - 32.0 pcg LAB HEMETOLOGY METHOD 10/03/2024 12:54 PM [facility] MCHC 31.4(L) 32.0 - 37.0 g/dL LAB HEMETOLOGY METHOD 10/03/2024 12:54 PM EDT [facility] RDW 17.3(H) 11.0 - 15.0 % LAB HEMETOLOGY METHOD 10/03/2024 12:54 PM EDT [facility] Platelets 420(H) 130 - 400 K/mcL LAB HEMETOLOGY METHOD [facility]24 [facility] MPV 9.4 7.0 - 11.0 FL LAB HEMETOLOGY METHOD 10/03/2024 12:54 PM EDT [facility] NRBC 0.0 <1.0 % LAB HEMETOLOGY METHOD 10/03[facility]2024 [facility] NRBC Absolute 0.00 <0.10 K/mcL LAB HEMETOLOGY METHOD 10/03/2024 12:54 PM [facility] Blood Venous blood specimen / Unknown Venipuncture / Unknown 10/03/2024 6:12 AM EDT 10/03/2024 10:29 AM EDT us Steven Lopez MD LAB BLOOD ORDERABLES Final Resul t [facility] [address] [place] [address], * (ABNORMAL) Basic metabolic panel (10/03/2024 5:31 AM EDT) Sodium 134 133 - 145 mmol/L LAB CHEMISTRY METHOD 10/03/2024 11:43 AM T [facility] Potassium 5.0 3.5 - 5.5 mmol/L LAB CHEMISTRY METHOD 10/03/2024 11[facility] Chloride 100 96 - 110 mmol/L LAB CHEMISTRY METHOD 10/03/2024 11:43 AM [facility] CO2 26 21 - 32 mmol/L LAB CHEMISTRY METHOD 10/03/2024 11:43 AM EDT [facility] Anion Gap 8 3 - 11 LAB CHEMISTRY METHOD 10/03/2024 11:43 AM EDT [facility] Glucose 58(L) 70 - 100 mg/dL LAB CHEMISTRY METHOD 10/03/2024 11:43 AM [facility] BUN 32(H) 5 - 25 mg/dL LAB CHEMISTRY METHOD 10/03/2024 11:43 AM [facility] Creatinine 1.32(H) 0.70 - 1.30 mg/dL LAB CHEMISTRY METHOD 10/03/2024 11:43 AM T [facility] eGFR 56(L) >=60 mL/min/1. 73m2 LAB CHEMISTRY METHOD 10/03/2024 11:43 AM T [facility] Comment:Calculation based on the Chronic Kidney Disease Epidemiology Collaboration (CKD-EPI) equation refit without adjustment for race. BUN/Creatinine Ratio 24.2 LAB CHEMISTRY METHOD 10/03/2024 11:43 AM T [facility] Calcium 8.9 8.5 - 10.5 mg/dL LAB CHEMISTRY METHOD 10/03/2024 11:43 AM [facility] Blood Venous blood specimen / Unknown Venipuncture / Unknown 10/03/2024 5:31 AM EDT 10/03/2024 10:29 AM EDT us Steven Lopez MD LAB BLOOD ORDERABLES Final Resul t [facility] [address] [place] [address], documented in this encounter Visit Diagnoses Diagnosis Acute combined systolic (congestive) and diastolic (congestive) heart failure (CMS/HCC V24, CMS/HCC V28) Acute respiratory failure with hypoxia (CMS/HCC V24, CMS/HCC V28) documented in this encounter Additional Health Concerns Infection Onset Date Last Indicated Resolved Time VRE 03/02/2024 03/02/2024 ESBL 07/27/2024 07/27/2024 documented as of this encounter Care Teams Photography Assistant Relationship Specialty Start Date End Date Fidel Davis MD [address] [place] [phone] PCP - General Internal Medicine 10/19/24 documented as of this encounter
--- OUTSIDE RECORDS SUMMARY | 2024-12-22 13:29 | XMS_ITS | Encounter Summary ---
Author Organization [facility] Address [address] [place] [address] Care Team Providers Care Supervisor Sanding Name Role Phone Fidel Davis MD Primary Care Provider [phone] Encounter Details Date Type Department Care Team (Late Contact Info) Description 05/27/2024 Lab Requisition [facility] - Main Lab 299 [facility] [place] [phone] Nichelle Prescott MD [address] [place] [phone] Acute respiratory failure, unspecified whether with hypoxia or hypercapnia (CMS/HCC V24, CMS/HCC V28); Sepsis, unspecified organism (CMS/HCC V24, CMS/HCC V28) Social History Tobacco [...] 4:00 PM EDT Office Visit Adult Medicine [address] [phone] Fidel Davis MD [address] [place] [address] documented as of this encounter Procedures Procedure Name Priority Date/Time Associated Diagnosis Comments COMPLETE BLOOD COUNT Routine 05/27/2024 8:14 AM EDT Acute respiratory failure, unspecified whether with hypoxia or hypercapnia Sepsis, unspecified organism (CMS/HCC) MAGNESIUM Routine 05/27/2024 8:14 AM EDT Acute respiratory failure, unspecified whether with hypoxia or hypercapnia Sepsis, unspecified organism (CMS/HCC) FOLATE Routine 05/27/2024 8:14 AM EDT Acute respiratory failure, unspecified whether with hypoxia or hypercapnia Sepsis, unspecified organism (CMS/HCC) VITAMIN B12 Routine 05/27/2024 8:14 AM EDT Acute respiratory failure, unspecified whether with hypoxia or hypercapnia Sepsis, unspecified organism (CMS/HCC) COMPREHENSIVE METABOLIC PANEL Routine 05/27/2024 8:14 AM EDT Acute respiratory failure, unspecified whether with hypoxia or hypercapnia Sepsis, unspecified organism (CMS/HCC) documented in this encounter Results * Magnesium (05/27/2024 8:14 AM EDT) Pathologist [facility] Magnesium 2.1 1.9 - 2.6 mg/dL LAB CHEMISTRY METHOD 05/27/2024 10:52 AM EDT [facility] Blood Venous blood specimen / Unknown Venipuncture / Unknown 05/27/2024 8:14 AM EDT 05/27/2024 9:20 AM EDT us Nichelle Prescott MD LAB BLOOD ORDERABLES Fin al Result [facility] [address] [place] [address], * Folate (05/27/2024 8:14 AM EDT) Pathologist [facility] Folate 5.7 2.8 - 17.0 ng/ml LAB CHEMISTRY METHOD 05/27/2024 11:15 AM EDT [facility] Blood Venous blood specimen / Unknown Venipuncture / Unknown 05/27/2024 8:14 AM EDT 05/27/2024 9:20 AM EDT Nichelle Prescott MD LAB BLOOD ORDERABLES Fin al Result Performing Organization Address City/[facility]/ZIP Co de Phone Number [facility] [address] [place] [address], [place] [phone] * (ABNORMAL) Vitamin B12 (05/27/2024 8:14 AM EDT) [facility] Vitamin B-12 1,159(H) 250 - 900 pcg/mL LAB CHEMISTRY METHOD 05/27/2024 11:15 AM EDT [facility] Blood Venous blood specimen / Unknown Venipuncture / Unknown 05/27/2024 8:14 AM EDT 05/27/2024 9:20 AM EDT Nichelle Prescott MD LAB BLOOD ORDERABLES Fin al Result Performing Organization Address [place]/[facility] Co de Phone Number [facility] [address] [place] [address], [place] [phone] * (ABNORMAL) Comprehensive metabolic panel (05/27/2024 8:14 AM EDT) [facility] Sodium 138 133 - 145 mmol/L LAB CHEMISTRY METHOD 05/27/2024 10:59 AM EDT [facility] Potassium 4.7 3.5 - 5.5 mmol/L LAB CHEMISTRY METHOD 05/27/2024 10:59 AM EDT [facility] Chloride 105 96 - 110 mmol/L LAB CHEMISTRY METHOD 05/27/2024 10:59 AM EDT [facility] CO2 29 21 - 32 mmol/L LAB CHEMISTRY METHOD 05/27/2024 10:59 AM EDT [facility] Anion Gap 4 3 - 11 LAB CHEMISTRY METHOD 05/27/2024 10:59 AM [facility] Glucose 84 70 - 100 mg/dL LAB CHEMISTRY METHOD 05/27/2024 10:59 AM [facility] BUN 9 5 - 25 mg/dL LAB CHEMISTRY METHOD 05/27/2024 10:59 AM [facility] Creatinine 0.95 0.70 - 1.30 mg/dL LAB CHEMISTRY METHOD 05/27/2024 10:59 AM [facility] eGFR 83 >=60 mL/min/1. 73m2 LAB CHEMISTRY METHOD 05/27/2024 10:59 AM [facility] Comment:Calculation based on the Chronic Kidney Disease Epidemiology Collaboration (CKD-EPI) equation refit without adjustment for race. BUN/Creatinine Ratio 9.5 LAB CHEMISTRY METHOD 05/27/2024 10:59 AM [facility] Calcium 8.4(L) 8.5 - 10.5 mg/dL LAB CHEMISTRY METHOD 05/27/2024 10:59 AM [facility] AST (SGOT) 41 10 - 42 unit/L LAB CHEMISTRY METHOD 05/27/2024 10:59 AM [facility] ALT (SGPT) 49 10 - 60 unit/L LAB CHEMISTRY METHOD 05/27/2024 10:59 AM [facility] Alkaline Phosphatase 78 42 - 121 unit/L LAB CHEMISTRY METHOD 05/27/2024 10:59 AM [facility] Total Protein 5.7(L) 6.0 - 8.0 g/dL LAB CHEMISTRY METHOD 05/27/2024 10:59 AM [facility] Albumin 2.1(L) 3.2 - 5.0 g/dL LAB CHEMISTRY METHOD 05/27/2024 10:59 AM [facility] Total Bilirubin 0.5 0.0 - 1.4 mg/dL LAB CHEMISTRY METHOD 05/27/2024 10:59 AM EDT [facility] Blood Venous blood specimen / Unknown Venipuncture / Unknown 05/27/2024 8:14 AM EDT 05/27/2024 9:20 AM EDT us Nichelle Prescott MD LAB BLOOD ORDERABLES Fin al Result [facility] [address] [place] [address], * (ABNORMAL) Complete blood count (05/27/2024 8:14 AM EDT) WBC 8.5 4.8 - 10.8 K/mcL LAB HEMETOLOGY METHOD 05/27/2024 10:09 AM [facility] RBC 3.30(L) 4.50 - 5.50 M/mcL LAB HEMETOLOGY METHOD 05/27/2024 10:09 AM [facility] Hemoglobin 10.5(L) 13.5 - 17.5 g/dL LAB HEMETOLOGY METHOD 05/27/2024 10:09 AM [facility] Hematocrit 33.6(L) 42.0 - 54.0 % LAB HEMETOLOGY METHOD 05/27/2024 10:09 AM [facility] MCV 101.8(H) 79.0 - 98.0 FL LAB HEMETOLOGY METHOD 05/27/2024 10:09 AM [facility] MCH 31.8 27.0 - 32.0 pcg LAB HEMETOLOGY METHOD 05/27/2024 10:09 AM [facility] MCHC 31.3(L) 32.0 - 37.0 g/dL LAB HEMETOLOGY METHOD 05/27/2024 10:09 AM [facility] RDW 16.4(H) 11.0 - 15.0 % LAB HEMETOLOGY METHOD 05/27/2024 10:09 AM EDT [facility] Platelets 317 130 - 400 K/mcL LAB HEMETOLOGY METHOD 05/27/2024 10:09 AM EDT [facility] MPV 10.2 7.0 - 11.0 FL LAB HEMETOLOGY METHOD 05/27/2024 10:09 AM EDT [facility] NRBC 0.0 <1.0 % LAB HEMETOLOGY METHOD 05/27/2024 10:09 AM EDT [facility] NRBC Absolute 0.00 <0.10 K/mcL LAB HEMETOLOGY METHOD 05/27/2024 10:09 AM EDT [facility] Blood Venous blood specimen / Unknown Venipuncture / Unknown 05/27/2024 8:14 AM EDT 05/27/2024 9:20 AM EDT us Nichelle Prescott MD LAB BLOOD ORDERABLES Fin al Result [facility] [address] [place] [address], documented in this encounter Visit Diagnoses Diagnosis Acute respiratory failure, unspecified whether with hypoxia or hypercapnia (CMS/HCC V24, CMS/HCC V28) Sepsis, unspecified organism (CMS/HCC V24, CMS/HCC V28) documented in this encounter Additional Health Concerns Infection Onset Date Last Indicated Resolved Time VRE 03/02/2024 03/02/2024 ESBL 07/27/2024 07/27/2024 documented as of this encounter Care Teams Supervisor Sanding Relationship Specialty Start Date End Date Fidel Davis MD [address] [place] [phone] PCP - General Internal Medicine 10/19/24 documented as of this encounter
--- OUTSIDE RECORDS SUMMARY | 2024-12-22 13:29 | XMS_ITS | Encounter Summary ---
Author Organization [facility] Address [address] [place] [address] Care Team Providers Care Hand I Blocker Name Role Phone Fidel Davis MD Primary Care Provider [phone] Encounter Details Date Type Department Care Team (Late Contact Info) Description 06/04/2024 Lab Requisition [facility] - Main Lab 299 [facility] [place] [phone] Nichelle Prescott MD [address] [place] [phone] Acute kidney failure, unspecified (CMS/HCC V24); Acute [...] 4:00 PM EDT Office Visit Adult Medicine [address] [phone] Fidel Davis MD [address] [place] [address] documented as of this encounter Procedures Procedure Name Priority Date/Time Associated Diagnosis Comments COMPLETE BLOOD COUNT Routine 06/06/2024 8:41 AM EDT Acute kidney failure, unspecified (CMS/HCC) Acute respiratory failure with hypoxia BASIC METABOLIC PANEL Routine 06/06/2024 8:41 AM EDT Acute kidney failure, unspecified (CMS/HCC) Acute respiratory failure with hypoxia documented in this encounter Results * Basic metabolic panel (06/06/2024 8:41 AM EDT) Sodium 136 133 - 145 mmol/L LAB CHEMISTRY METHOD 06/06/2024 12:38 PM [facility] Potassium 4.6 3.5 - 5.5 mmol/L LAB CHEMISTRY METHOD 06/06/2024 12:38 PM [facility] Chloride 104 96 - 110 mmol/L LAB CHEMISTRY METHOD 06/06/2024 12:38 PM [facility] CO2 27 21 - 32 mmol/L LAB CHEMISTRY METHOD 06/06/2024 12:38 PM [facility] Anion Gap 5 3 - 11 LAB CHEMISTRY METHOD 06/06/2024 12:38 PM [facility] Glucose 85 70 - 100 mg/dL LAB CHEMISTRY METHOD 06/06/2024 12:38 PM [facility] BUN 15 5 - 25 mg/dL LAB CHEMISTRY METHOD 06/06/2024 12:38 PM [facility] Creatinine 1.01 0.70 - 1.30 mg/dL LAB CHEMISTRY METHOD 06/06/2024 12:38 PM [facility] eGFR 78 >=60 mL/min/1. 73m2 LAB CHEMISTRY METHOD 06/06/2024 12:38 PM [facility] Comment:Calculation based on the Chronic Kidney Disease Epidemiology Collaboration (CKD-EPI) equation refit without adjustment for race. BUN/Creatinine Ratio 14.9 LAB CHEMISTRY METHOD 06/06/2024 12:38 PM [facility] Calcium 8.6 8.5 - 10.5 mg/dL LAB CHEMISTRY METHOD 06/06/2024 12:38 PM EDT [facility] Blood Venous blood specimen / Unknown Venipuncture / Unknown 06/06/2024 8:41 AM EDT 06/06/2024 10:25 AM EDT us Nichelle Prescott MD LAB BLOOD ORDERABLES Fin al Result [facility] [address] [place] [address], * (ABNORMAL) Complete blood count (06/06/2024 8:41 AM EDT) WBC 6.9 4.8 - 10.8 K/mcL LAB HEMETOLOGY METHOD 06/06/2024 11:18 AM [facility] RBC 3.50(L) 4.50 - 5.50 M/mcL LAB HEMETOLOGY METHOD 06/06/2024 11:18 AM [facility] Hemoglobin 11.2(L) 13.5 - 17.5 g/dL LAB HEMETOLOGY METHOD 06/06/2024 11:18 AM [facility] Hematocrit 35.0(L) 42.0 - 54.0 % LAB HEMETOLOGY METHOD 06/06/2024 11:18 AM [facility] MCV 100.3(H) 79.0 - 98.0 FL LAB HEMETOLOGY METHOD 06/06/2024 11:18 AM [facility] MCH 32.1(H) 27.0 - 32.0 pcg LAB HEMETOLOGY METHOD 06/06/2024 11:18 AM [facility] MCHC 32.0 32.0 - 37.0 g/dL LAB HEMETOLOGY METHOD 06/06/2024 11:18 AM [facility] RDW 16.4(H) 11.0 - 15.0 % LAB HEMETOLOGY METHOD 06/06/2024 11:18 AM EDT [facility] Platelets 354 130 - 400 K/mcL LAB HEMETOLOGY METHOD 06/06/2024 11:18 AM EDT [facility] MPV 10.6 7.0 - 11.0 FL LAB HEMETOLOGY METHOD 06/06/2024 11:18 AM EDT [facility] NRBC 0.0 <1.0 % LAB HEMETOLOGY METHOD 06/06/2024 11:18 AM EDT [facility] NRBC Absolute 0.00 <0.10 K/mcL LAB HEMETOLOGY METHOD 06/06/2024 11:18 AM EDT [facility] Blood Venous blood specimen / Unknown Venipuncture / Unknown 06/06/2024 8:41 AM EDT 06/06/2024 10:25 AM EDT us Nichelle Prescott MD LAB BLOOD ORDERABLES Fin al Result [facility] [address] [place] [address], documented in this encounter Visit Diagnoses Diagnosis Acute kidney failure, unspecified (CMS/HCC V24) Acute kidney failure, unspecified Acute respiratory failure with hypoxia (CMS/HCC V24, CMS/HCC V28) documented in this encounter Additional Health Concerns Infection Onset Date Last Indicated Resolved Time VRE 03/02/2024 03/02/2024 ESBL 07/27/2024 07/27/2024 documented as of this encounter Care Teams Hand I Blocker Relationship Specialty Start Date End Date Fidel Davis MD [address] [place] [phone] PCP - General Internal Medicine 10/19/24 documented as of this encounter
--- OUTSIDE RECORDS SUMMARY | 2024-12-22 13:29 | XMS_ITS | Encounter Summary ---
Author Organization [facility] Address [address] [place] [address] Care Team Providers Care Business Professor Name Role Phone Fidel Davis MD Primary Care Provider [phone] Encounter Details Date Type Department Care Team (Late Contact Info) Description 06/10/2024 Lab Requisition [facility] - Main Lab 299 [facility] [place] [phone] Nichelle Prescott MD [address] [place] [address] Acute kidney failure, unspecified (CMS/HCC V24); Acute [...] 4:00 PM EDT Office Visit Adult Medicine [address] [phone] Fidel Davis MD [address] [place] [address] documented as of this encounter Procedures Procedure Name Priority Date/Time Associated Diagnosis Comments COMPLETE BLOOD COUNT Routine 06/13/2024 9:10 AM EDT Acute kidney failure, unspecified ([facility] V24) Acute respiratory failure with hypoxia ([facility] V24, [facility] V28) BASIC METABOLIC PANEL Routine 06/13/2024 9:10 AM EDT Acute kidney failure, unspecified ([facility] V24) Acute respiratory failure with hypoxia ([facility] V24, [facility] V28) documented in this encounter Results * (ABNORMAL) Basic metabolic panel (06/13/2024 9:10 AM EDT) Sodium 135 133 - 145 mmol/L LAB CHEMISTRY METHOD 06/13/2024 12:53 PM [facility] Potassium 4.2 3.5 - 5.5 mmol/L LAB CHEMISTRY METHOD 06/13/2024 12:53 PM [facility] Chloride 105 96 - 110 mmol/L LAB CHEMISTRY METHOD 06/13/2024 12:53 PM [facility] CO2 23 21 - 32 mmol/L LAB CHEMISTRY METHOD 06/13/2024 12:53 PM [facility] Anion Gap 7 3 - 11 LAB CHEMISTRY METHOD 06/13/2024 12:53 PM [facility] Glucose 120(H) 70 - 100 mg/dL LAB CHEMISTRY METHOD 06/13/2024 12:53 PM [facility] BUN 17 5 - 25 mg/dL LAB CHEMISTRY METHOD 06/13/2024 12:53 PM [facility] Creatinine 1.08 0.70 - 1.30 mg/dL LAB CHEMISTRY METHOD 06/13/2024 12:53 PM [facility] eGFR 72 >=60 mL/min/1. 73m2 LAB CHEMISTRY METHOD 06/13/2024 12:53 PM [facility] Comment:Calculation based on the Chronic Kidney Disease Epidemiology Collaboration (CKD-EPI) equation refit without adjustment for race. BUN/Creatinine Ratio 15.7 LAB CHEMISTRY METHOD 06/13/2024 12:53 PM EDT [facility] Calcium 8.6 8.5 - 10.5 mg/dL LAB CHEMISTRY METHOD 06/13/2024 12:53 PM EDT [facility] Blood Venous blood specimen / Unknown Venipuncture / Unknown 06/13/2024 9:10 AM EDT 06/13/2024 11:08 AM EDT us Nichelle Prescott MD LAB BLOOD ORDERABLES Fin al Result [facility] [address] [place] [address], * (ABNORMAL) Complete blood count (06/13/2024 9:10 AM EDT) WBC 7.1 4.8 - 10.8 K/mcL LAB HEMETOLOGY METHOD 06/13/2024 12:10 PM [facility] RBC 3.70(L) 4.50 - 5.50 M/mcL LAB HEMETOLOGY METHOD 06/13/2024 12:10 PM [facility] Hemoglobin 12.0(L) 13.5 - 17.5 g/dL LAB HEMETOLOGY METHOD 06/13/2024 12:10 PM [facility] Hematocrit 37.2(L) 42.0 - 54.0 % LAB HEMETOLOGY METHOD 06/13/2024 12:10 PM [facility] MCV 100.0(H) 79.0 - 98.0 FL LAB HEMETOLOGY METHOD 06/13/2024 12:10 PM [facility] MCH 32.3(H) 27.0 - 32.0 pcg LAB HEMETOLOGY METHOD 06/13/2024 12:10 PM [facility] MCHC 32.3 32.0 - 37.0 g/dL LAB HEMETOLOGY METHOD 06/13/2024 12:10 PM EDT [facility] RDW 16.7(H) 11.0 - 15.0 % LAB HEMETOLOGY METHOD 06/13/2024 12:10 PM EDT [facility] Platelets 265 130 - 400 K/mcL LAB HEMETOLOGY METHOD 06/13/2024 12:10 PM EDT [facility] MPV 10.9 7.0 - 11.0 FL LAB HEMETOLOGY METHOD 06/13/2024 12:10 PM EDT [facility] NRBC 0.0 <1.0 % LAB HEMETOLOGY METHOD 06/13/2024 12:10 PM EDT [facility] NRBC Absolute 0.00 <0.10 K/mcL LAB HEMETOLOGY METHOD 06/13/2024 12:10 PM EDT [facility] Blood Venous blood specimen / Unknown Venipuncture / Unknown 06/13/2024 9:10 AM EDT 06/13/2024 11:08 AM EDT Nichelle Prescott MD LAB BLOOD ORDERABLES Fin al Result [facility] [address] [place], [place] [address] [phone] documented in this encounter Visit Diagnoses Diagnosis Acute kidney failure, unspecified (CMS/HCC V24) Acute kidney failure, unspecified Acute respiratory failure with hypoxia (CMS/HCC V24, CMS/HCC V28) documented in this encounter Additional Health Concerns Infection Onset Date Last Indicated Resolved Time VRE 03/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
--- OUTSIDE RECORDS SUMMARY | 2024-12-22 13:29 | XMS_ITS | Encounter Summary ---
Author Organization [facility] Address [address] [place] [address] Care Team Providers Care Assurance Services Manager Health Care Name Role Phone Fidel Dvais MD Primary Care Provider [phone] Encounter Details Date Type Department Care Team (Late st Contact Info) Description 06/02/2024 Lab Requisition [facility] - Main Lab 299 [facility] [place] [phone] Nichelle Prescott MD [address] [place] [address] Unspecified atrial fibrillation (CMS/HCC V24, CMS/HCC V28); Hypovolemia; Heart failure, unspecified (CMS/HCC V24, CMS/HCC V28) Social History Tobacco [...] PM EDT Office Visit Adult Medicine [address] [phone] Fidel Davis MD [address] [place] [address] documented as of this encounter Procedures Procedure Name Priority Date/Time Associated Diagnosis Comments COMPLETE BLOOD COUNT Routine 06/02/2024 7:12 AM EDT Unspecified atrial fibrillation (CMS/HCC) Hypovolemia Heart failure, unspecified (CMS/HCC) BASIC METABOLIC PANEL Routine 06/02/2024 7:12 AM EDT Unspecified atrial fibrillation (CMS/HCC) Hypovolemia Heart failure, unspecified (CMS/HCC) documented in this encounter Results * (ABNORMAL) Basic metabolic panel (06/02/2024 7:12 AM EDT) Sodium 138 133 - 145 mmol/L LAB CHEMISTRY METHOD 06/02/2024 10:52 AM [facility] Potassium 4.8 3.5 - 5.5 mmol/L LAB CHEMISTRY METHOD 06/02/2024 10:52 AM [facility] Chloride 104 96 - 110 mmol/L LAB CHEMISTRY METHOD 06/02/2024 10:52 AM [facility] CO2 30 21 - 32 mmol/L LAB CHEMISTRY METHOD 06/02/2024 10:52 AM [facility] Anion Gap 4 3 - 11 LAB CHEMISTRY METHOD 06/02/2024 10:52 AM [facility] Glucose 87 70 - 100 mg/dL LAB CHEMISTRY METHOD 06/02/2024 10:52 AM [facility] BUN 15 5 - 25 mg/dL LAB CHEMISTRY METHOD 06/02/2024 10:52 AM [facility] Creatinine 0.96 0.70 - 1.30 mg/dL LAB CHEMISTRY METHOD 06/02/2024 10:52 AM [facility] eGFR 82 >=60 mL/min/1. 73m2 LAB CHEMISTRY METHOD 06/02/2024 10:52 AM [facility] Comment:Calculation based on the Chronic Kidney Disease Epidemiology Collaboration (CKD-EPI) equation refit without adjustment for race. BUN/Creatinine Ratio 15.6 LAB CHEMISTRY METHOD 06/02/2024 10:52 AM EDT [facility] Calcium 8.4(L) 8.5 - 10.5 mg/dL LAB CHEMISTRY METHOD 06/02/2024 10:52 AM [facility] Blood Venous blood specimen / Unknown Venipuncture / Unknown 06/02/2024 7:12 AM EDT 06/02/2024 9:14 AM EDT us Nichelle Prescott MD LAB BLOOD ORDERABLES Fin al Result [facility] [address] [place] [address], * (ABNORMAL) Complete blood count (06/02/2024 7:12 AM EDT) WBC 7.0 4.8 - 10.8 K/mcL LAB HEMETOLOGY METHOD 06/02/2024 10:25 AM [facility] RBC 3.30(L) 4.50 - 5.50 M/mcL LAB HEMETOLOGY METHOD 06/02/2024 10:25 AM [facility] Hemoglobin 10.3(L) 13.5 - 17.5 g/dL LAB HEMETOLOGY METHOD 06/02/2024 10:25 AM [facility] Hematocrit 32.2(L) 42.0 - 54.0 % LAB HEMETOLOGY METHOD 06/02/2024 10:25 AM [facility] MCV 99.1(H) 79.0 - 98.0 FL LAB HEMETOLOGY METHOD 06/02/2024 10:25 AM [facility] MCH 31.7 27.0 - 32.0 pcg LAB HEMETOLOGY METHOD 06/02/2024 10:25 AM [facility] MCHC 32.0 32.0 - 37.0 g/dL LAB HEMETOLOGY METHOD 06/02/2024 10:25 AM EDT [facility] RDW 16.6(H) 11.0 - 15.0 % LAB HEMETOLOGY METHOD 06/02/2024 10:25 AM EDT [facility] Platelets 373 130 - 400 K/mcL LAB HEMETOLOGY METHOD 06/02/2024 10:25 AM EDT [facility] MPV 10.5 7.0 - 11.0 FL LAB HEMETOLOGY METHOD 06/02/2024 10:25 AM EDT [facility] NRBC 0.0 <1.0 % LAB HEMETOLOGY METHOD 06/02/2024 10:25 AM EDT [facility] NRBC Absolute 0.00 <0.10 K/mcL [facility] 06/02/2024 10:25 AM EDT [facility] Blood Venous blood specimen / Unknown Venipuncture / Unknown 06/02/2024 7:12 AM EDT 06/02/2024 9:14 AM EDT us Nichelle Prescott MD LAB BLOOD ORDERABLES Fin al Result [facility] [address] [place] [address], documented in this encounter Visit Diagnoses Diagnosis Unspecified atrial fibrillation (CMS/HCC V24, CMS/HCC V28) Hypovolemia Heart failure, unspecified (CMS/HCC V24, CMS/HCC V28) Heart failure, unspecified documented in this encounter Additional Health Concerns Infection Onset Date Last Indicated Resolved Time VRE 03/02/2024 03/02/2024 ESBL 07/27/2024 07/27/2024 documented as of this encounter Care Teams Assurance Services Manager Health Care Relationship Specialty Start Date End Date Fidel Davis MD [address] [place] [phone] PCP - General Internal Medicine 10/19/24 documented as of this encounter
--- OUTSIDE RECORDS SUMMARY | 2024-12-22 13:29 | XMS_ITS | Encounter Summary ---
Author Organization [facility] Address [address] [place] [phone] Care Team Providers Care Video Control Operator Name Role Phone Fidel Davis MD Primary Care Provider [phone] Encounter Details Date Type Department Care Team (Late Contact Info) Description 09/24/2024 Lab Requisition [facility] - Main Lab [address] [facility] [place] [address] Steven Lopez MD [address] [place] [address], [phone] Acute combined systolic (congestive) and diastolic [...] 4:00 PM EDT Office Visit Adult Medicine [address] [phone] Fidel Davis MD [address] [place] [address] documented as of this encounter Procedures Procedure Name Priority Date/Time Associated Diagnosis Comments COMPLETE BLOOD COUNT Routine 09/26/2024 5:46 AM [...] encounter Results * (ABNORMAL) Basic metabolic panel (09/26/2024 5:46 AM EDT) Sodium 127(L) 133 - 145 mmol/L LAB CHEMISTRY METHOD 09/26/2024 1:02 PM [facility] Potassium 4.6 3.5 - 5.5 mmol/L LAB CHEMISTRY METHOD 09/26/2024 1:02 PM [facility] Chloride 90(L) 96 - 110 mmol/L LAB CHEMISTRY METHOD 09/26/2024 1:02 PM [facility] CO2 26 21 - 32 mmol/L LAB CHEMISTRY METHOD 09/26/2024 1:02 PM [facility] Anion Gap 11 3 - 11 LAB CHEMISTRY METHOD 09/26/2024 1:02 PM [facility] Glucose 53(L) 70 - 100 mg/dL LAB CHEMISTRY METHOD 09/26/2024 1:02 PM [facility] BUN 30(H) 5 - 25 mg/dL LAB CHEMISTRY METHOD 09/26/2024 1:02 PM [facility] Creatinine 1.37(H) 0.70 - 1.30 mg/dL LAB CHEMISTRY METHOD 09/26/2024 1:02 PM [facility] eGFR 53(L) >=60 mL/min/1. 73m2 LAB CHEMISTRY METHOD 09/26/2024 1:02 PM EDT [facility] Comment:Calculation based on the Chronic Kidney Disease Epidemiology Collaboration (CKD-EPI) equation refit without adjustment for race. BUN/Creatinine Ratio 21.9 LAB CHEMISTRY METHOD 09/26/2024 1:02 PM EDT [facility] Calcium 9.1 8.5 - 10.5 mg/dL LAB CHEMISTRY METHOD 09/26/2024 1:02 PM EDT [facility] Blood Venous blood specimen / Unknown Venipuncture / Unknown 09/26/2024 5:46 AM EDT 09/26/2024 11:45 AM EDT us Steven Lopez MD LAB BLOOD ORDERABLES Final Resul t [facility] [address] [place] [address], [place] [phone] * (ABNORMAL) Complete blood count (09/26/2024 5:46 AM EDT) WBC 11.3(H) 4.8 - 10.8 K/mcL LAB HEMETOLOGY METHOD 09/26/2024 12:42 PM [facility] RBC 4.10(L) 4.50 - 5.50 M/mcL LAB HEMETOLOGY [facility] Hemoglobin 12.0(L) 13.5 - 17.5 g/dL LAB HEMETOLOGY METHOD 09/26/2024 12:42 PM [facility] Hematocrit 37.5(L) 42.0 - 54.0 % LAB HEMETOLOGY METHOD 09/26/2024 12:42 PM [facility] MCV 91.5 79.0 - 98.0 FL LAB HEMETOLOGY METHOD 09/26[facility]2024 12[facility] MCH 29.3 27.0 - 32.0 pcg LAB HEMETOLOGY METHOD 09/26/2024 12:42 PM EDT [facility] MCHC 32.0 32.0 - 37.0 g/dL LAB HEMETOLOGY METHOD 09/26/2024 12:42 PM EDT [facility] RDW 16.8(H) 11.0 - 15.0 % LAB HEMETOLOGY METHOD 09/26/2024 12:42 PM EDT [facility] Platelets 481(H) 130 - 400 K/mcL LAB HEMETOLOGY METHOD 09/26/2024 12:42 PM EDT [facility] MPV 10.0 7.0 - 11.0 FL LAB HEMETOLOGY METHOD 09/26/2024 12:42 PM EDT [facility] NRBC 0.0 <1.0 % LAB HEMETOLOGY METHOD 09/26/2024 12:42 PM EDT [facility] NRBC Absolute 0.00 <0.10 K/mcL LAB HEMETOLOGY METHOD 09/26/2024 12:42 PM EDT [facility] Blood Venous blood specimen / Unknown Venipuncture / Unknown 09/26/2024 5:46 AM EDT 09/26/2024 11:46 AM EDT us Steven Lopez MD LAB BLOOD ORDERABLES Final Resul t [facility] [address] [place] [address], documented in this encounter Visit Diagnoses Diagnosis 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
--- OUTSIDE RECORDS SUMMARY | 2024-12-22 13:30 | XMS_ITS | Encounter Summary ---
Author Organization [facility] Address [address] [place] [phone] Care Team Providers Care Snaker Driving Horses Name Role Phone Fidel Davis MD Primary Care Provider [phone] Encounter Details Date Type Department Care Team (Late Contact Info) Description 09/21/2024 Lab Requisition [facility] - Main Lab 299 [facility] [place] [address] Steven Lopez MD [address] [place] [phone] Acute kidney failure, unspecified (CMS/HCC V24) Social [...] 4:00 PM EDT Office Visit Adult Medicine [address] [phone] Fidel Davis MD [address] [place] [address] documented as of this encounter Procedures Procedure Name Priority Date/Time Associated Diagnosis Comments COMPLETE BLOOD COUNT Routine 09/21/2024 5:24 AM EDT Acute kidney failure, unspecified ([facility] V24) BASIC METABOLIC PANEL Routine 09/21/2024 5:24 AM EDT Acute kidney failure, unspecified ([facility] V24) documented in this encounter Results * (ABNORMAL) Basic metabolic panel (09/21/2024 5:24 AM EDT) Sodium 131(L) 133 - 145 mmol/L LAB CHEMISTRY METHOD 09/21/2024 10:31 AM [facility] Potassium 4.7 3.5 - 5.5 mmol/L LAB CHEMISTRY METHOD 09/21/2024 10:31 AM [facility] Chloride 95(L) 96 - 110 mmol/L LAB CHEMISTRY METHOD 09/21/2024 10:31 AM [facility] CO2 28 21 - 32 mmol/L LAB CHEMISTRY METHOD 09/21/2024 10:31 AM [facility] Anion Gap 8 3 - 11 LAB CHEMISTRY METHOD 09/21/2024 10:31 AM [facility] Glucose 85 70 - 100 mg/dL LAB CHEMISTRY METHOD 09/21/2024 10:31 AM [facility] BUN 33(H) 5 - 25 mg/dL LAB CHEMISTRY METHOD 09/21/2024 10:31 AM [facility] Creatinine 1.19 0.70 - 1.30 mg/dL LAB CHEMISTRY METHOD 09/21/2024 10:31 AM [facility] eGFR 63 >=60 mL/min/1. 73m2 LAB CHEMISTRY METHOD 09/21/2024 10:31 AM [facility] Comment:Calculation based on the Chronic Kidney Disease Epidemiology Collaboration (CKD-EPI) equation refit without adjustment for race. BUN/Creatinine Ratio 27.7 LAB CHEMISTRY METHOD 09/21/2024 10:31 AM [facility] Calcium 8.8 8.5 - 10.5 mg/dL LAB CHEMISTRY METHOD 09/21/2024 10:[address] [facility] Blood Venous blood specimen / Unknown Venipuncture / Unknown 09/21/2024 5:24 AM EDT 09/21/2024 9:30 AM EDT us Steven Lopez MD LAB BLOOD ORDERABLES Final Resul t [facility] [address] [place] [address], [place] [phone] * (ABNORMAL) Complete blood count (09/21/2024 5:24 AM EDT) WBC 9.7 4.8 - 10.8 K/mcL LAB HEMETOLOGY METHOD 09/21/2024 9:[address] [facility] RBC 4.00(L) 4.50 - 5.50 M/mcL LAB HEMETOLOGY METHOD 09/21/2024 9:[address] [facility] Hemoglobin 11.8(L) 13.5 - 17.5 g/dL LAB HEMETOLOGY METHOD 09/21/2024 9:[address] [facility] Hematocrit 37.0(L) 42.0 - 54.0 % LAB HEMETOLOGY METHOD 09/21/2024 9:[address] [facility] MCV 91.6 79.0 - 98.0 FL LAB HEMETOLOGY METHOD 09/21/2024 9:[address] [facility] MCH 29.2 27.0 - 32.0 pcg LAB HEMETOLOGY METHOD 09/21/2024 9:59 AM [facility] MCHC 31.9(L) 32.0 - 37.0 g/dL LAB HEMETOLOGY METHOD 09/21/2024 9:59 AM [facility] RDW 15.9(H) 11.0 - 15.0 % LAB HEMETOLOGY METHOD 09/21/2024 9:[address] [facility] Platelets 544(H) 130 - 400 K/mcL LAB HEMETOLOGY METHOD 09/21/2024 9:[address] [facility] MPV 10.0 7.0 - 11.0 FL LAB HEMETOLOGY METHOD 09/21/2024 9:[address] [facility] NRBC 0.0 <1.0 % LAB HEMETOLOGY METHOD 09/21/2024 9:[address] [facility] NRBC Absolute 0.00 <0.10 K/mcL LAB HEMETOLOGY METHOD 09/21/2024 9:[address] [facility] Blood Venous blood specimen / Unknown Venipuncture / Unknown 09/21/2024 5:24 AM EDT 09/21/2024 9:30 AM EDT us Steven Lopez MD LAB BLOOD ORDERABLES Final Resul t [facility] [address] [place] [address], documented in this encounter Visit Diagnoses Diagnosis Acute kidney failure, unspecified (CMS/HCC V24) Acute kidney failure, unspecified documented in this encounter Additional Health Concerns Infection Onset Date Last Indicated Resolved Time VRE 03/02/2024 03/02/2024 ESBL 07/27/2024 07/27/2024 documented as of this encounter Care Teams Snaker Driving Horses Relationship Specialty Start Date End Date Fidel Davis MD [address] [place] [phone] PCP - General Internal Medicine 10/19/24 documented as of this encounter
--- OUTSIDE RECORDS SUMMARY | 2024-12-22 13:30 | XMS_ITS | Encounter Summary ---
Author Organization [facility] Address [address] [place] [phone] Care Team Providers Care Track Production Engineer Name Role Phone Fidel Davis MD Primary Care Provider [phone] Encounter Details Date Type Department Care Team (Late Contact Info) Description 09/13/2024 Lab Requisition [facility] - Main Lab [address] [facility] [place] [address] Steven Lopez MD [address] [place] [address], [phone] Acute combined systolic (congestive) and diastolic [...] 4:00 PM EDT Office Visit Adult Medicine [address] [phone] Fidel Davis MD [address] [place] [address] documented as of this encounter Procedures Procedure Name Priority Date/Time Associated Diagnosis Comments COMPLETE BLOOD COUNT Routine 09/13/2024 4:43 AM EDT Acute combined systolic (congestive) and diastolic (congestive) heart failure (CMS/HCC V24, CMS/HCC V28) Acute respiratory failure with hypoxia (CMS/HCC V24, CMS/HCC V28) COMPREHENSIVE METABOLIC PANEL Routine 09/13/2024 4:43 AM EDT Acute combined systolic (congestive) and diastolic (congestive) heart failure (CMS/HCC V24, CMS/HCC V28) Acute respiratory failure with hypoxia (CMS/HCC V24, CMS/HCC V28) documented in this encounter Results * (ABNORMAL) Comprehensive metabolic panel (09/13/2024 4:43 AM EDT) Sodium 133 133 - 145 mmol/L LAB CHEMISTRY METHOD 09/13/2024 9:31 AM [facility] Potassium 5.2 3.5 - 5.5 mmol/L LAB CHEMISTRY METHOD 09/13/2024 9:31 AM [facility] Chloride 99 96 - 110 mmol/L LAB CHEMISTRY METHOD 09/13/2024 9:31 AM [facility] CO2 27 21 - 32 mmol/L LAB CHEMISTRY METHOD 09/13/2024 9:31 AM [facility] Anion Gap 7 3 - 11 LAB CHEMISTRY METHOD 09/13/2024 9:31 AM [facility] Glucose 79 70 - 100 mg/dL LAB CHEMISTRY METHOD 09/13/2024 9:31 AM [facility] BUN 22 5 - 25 mg/dL LAB CHEMISTRY METHOD 09/13/2024 9:31 AM [facility] Creatinine 1.32(H) 0.70 - 1.30 mg/dL LAB CHEMISTRY METHOD 09/13/2024 9:31 AM [facility] eGFR 56(L) >=60 mL/min/1. 73m2 LAB CHEMISTRY METHOD 09/13/2024 9:31 AM [facility] Comment:Calculation based on the Chronic Kidney Disease Epidemiology Collaboration (CKD-EPI) equation refit without adjustment for race. BUN/Creatinine Ratio 16.7 LAB CHEMISTRY METHOD 09/13/2024 9:31 AM [facility] Calcium 8.8 8.5 - 10.5 mg/dL LAB CHEMISTRY METHOD 09/13/2024 9:31 AM [facility] AST (SGOT) 46(H) 10 - 42 unit/L LAB CHEMISTRY METHOD 09/13/2024 9:31 AM [facility] ALT (SGPT) 65(H) 10 - 60 unit/L LAB CHEMISTRY METHOD 09/13/2024 9:31 AM [facility] Alkaline Phosphatase 97 42 - 121 unit/L LAB CHEMISTRY METHOD 09/13/2024 9:31 AM [facility] Total Protein 7.5 6.0 - 8.0 g/dL LAB CHEMISTRY METHOD 09/13/2024 9:31 AM [facility] Albumin 2.6(L) 3.2 - 5.0 g/dL LAB CHEMISTRY METHOD 09/13/2024 9:31 AM [facility] Total Bilirubin 0.6 0.0 - 1.4 mg/dL LAB CHEMISTRY METHOD 09/13/2024 9:31 AM [facility] Blood Venous blood specimen / Unknown Venipuncture / Unknown 09/13/2024 4:43 AM EDT 09/13/2024 8:23 AM EDT us Steven Lopez MD LAB BLOOD ORDERABLES Final Resul t [facility] [address] [place] [address], * (ABNORMAL) Complete blood count (09/13/2024 4:43 AM EDT) [facility] WBC 14.3(H) 4.8 - 10.8 K/mcL LAB HEMETOLOGY METHOD 09/13/2024 8:58 AM [facility] RBC 3.80(L) 4.50 - 5.50 M/mcL LAB HEMETOLOGY METHOD 09/13/2024 8:58 AM [facility] Hemoglobin 11.4(L) 13.5 - 17.5 g/dL LAB HEMETOLOGY METHOD 09/13/2024 8:58 AM [facility] Hematocrit 35.7(L) 42.0 - 54.0 % LAB HEMETOLOGY METHOD 09/13/2024 8:58 AM [facility] MCV 94.7 79.0 - 98.0 FL LAB HEMETOLOGY METHOD 09/13/2024 8:58 AM [facility] MCH 30.2 27.0 - 32.0 pcg LAB HEMETOLOGY METHOD 09/13/2024 8:58 AM [facility] MCHC 31.9(L) 32.0 - 37.0 g/dL LAB HEMETOLOGY METHOD 09/13/2024 8:58 AM [facility] RDW 16.8(H) 11.0 - 15.0 % LAB HEMETOLOGY METHOD 09/13/2024 8:58 AM [facility] Platelets 416(H) 130 - 400 K/mcL LAB HEMETOLOGY METHOD 09/13/2024 8:58 AM [facility] MPV 11.1(H) 7.0 - 11.0 FL LAB HEMETOLOGY METHOD 09/13/2024 8:58 AM [facility] NRBC 0.0 <1.0 % LAB HEMETOLOGY METHOD 09/13/2024 8:58 AM [facility] NRBC Absolute 0.00 <0.10 K/mcL LAB HEMETOLOGY METHOD 09/13/2024 8:58 AM EDT [facility] Blood Venous blood specimen / Unknown Venipuncture / Unknown 09/13/2024 4:43 AM EDT 09/13/2024 8:23 AM EDT us Steven Lopez MD LAB BLOOD ORDERABLES Final Resul t [facility] [address] [place] [address], documented in this encounter Visit Diagnoses Diagnosis Acute combined systolic (congestive) and diastolic (congestive) heart failure (CMS/HCC V24, CMS/HCC V28) Acute respiratory failure with hypoxia (CMS/HCC V24, CMS/HCC V28) documented in this encounter Additional Health Concerns Infection Onset Date Last Indicated Resolved Time VRE 03/02/2024 03/02/2024 ESBL 07/27/2024 07/27/2024 documented as of this encounter Care Teams Track Production Engineer Relationship Specialty Start Date End Date Fidel Davis MD [address] [place] [phone] PCP - General Internal Medicine 10/19/24 documented as of this encounter
--- OUTSIDE RECORDS SUMMARY | 2024-12-22 13:30 | XMS_ITS | Encounter Summary ---
Author Organization [facility] Address [address] [place] [phone] Care Team Providers Care Log Feeder Name Role Phone Fidel Davis MD Primary Care Provider [phone] Encounter Details Date Type Department Care Team (Late Contact Info) Description 11/13/2024 Lab Requisition [facility] - Main Lab 299 [facility] [place] [address] Steven Lopez MD [address] [place] [address], [phone] Acute combined systolic (congestive) and diastolic [...] PM EDT Office Visit Adult Medicine [address] [phone] Fidel Davis MD [address] [place] [address] documented as of this encounter Procedures Procedure Name Priority Date/Time Associated Diagnosis Comments COMPLETE BLOOD COUNT Routine 11/14/2024 5:25 AM [...] encounter Results * (ABNORMAL) Basic metabolic panel (11/14/2024 5:25 AM EDT) Sodium 133 133 - 145 mmol/L LAB CHEMISTRY METHOD 11/14/2024 12:32 PM [facility] Potassium 5.1 3.5 - 5.5 mmol/L LAB CHEMISTRY METHOD 11/14/2024 12:32 PM [facility] Chloride 100 96 - 110 mmol/L LAB CHEMISTRY METHOD 11/14/2024 12:32 PM [facility] CO2 25 21 - 32 mmol/L LAB CHEMISTRY METHOD 11/14/2024 12:32 PM [facility] Anion Gap 8 3 - 11 LAB CHEMISTRY METHOD 11/14/2024 12:32 PM [facility] Glucose 76 70 - 100 mg/dL LAB CHEMISTRY METHOD 11/14/2024 12:32 PM [facility] BUN 28(H) 5 - 25 mg/dL LAB CHEMISTRY METHOD 11/14/2024 12:32 PM [facility] Creatinine 0.99 0.70 - 1.30 mg/dL LAB CHEMISTRY METHOD 11/14/2024 12:32 PM [facility] eGFR 79 >=60 mL/min/1. 73m2 LAB CHEMISTRY METHOD 11/14/2024 12:32 PM EDT [facility] Comment:Calculation based on the Chronic Kidney Disease Epidemiology Collaboration (CKD-EPI) equation refit without adjustment for race. BUN/Creatinine Ratio 28.3 LAB CHEMISTRY METHOD 11/14/2024 12:32 PM EDT [facility] Calcium 8.5 8.5 - 10.5 mg/dL LAB CHEMISTRY METHOD 11/14/2024 12:32 PM EDT [facility] Blood Venous blood specimen / Unknown Venipuncture / Unknown 11/14/2024 5:25 AM EDT 11/14/2024 10:55 AM EDT us Steven Lopez MD LAB BLOOD ORDERABLES Final Resul t [facility] [address] [place] [address], * (ABNORMAL) Complete blood count (11/14/2024 5:25 AM EDT) WBC 11.3(H) 4.8 - 10.8 K/mcL LAB HEMETOLOGY METHOD 11/14/2024 12:46 PM EDT [facility] RBC 3.40(L) 4.50 - 5.50 M/mcL LAB HEMETOLOGY METHOD 11/14/2024 12:46 PM EDT [facility] Hemoglobin 10.1(L) 13.5 - 17.5 g/dL LAB HEMETOLOGY METHOD 11/14/2024 12:46 PM EDT [facility] Hematocrit 31.4(L) 42.0 - 54.0 % LAB HEMETOLOGY METHOD 11/14/2024 12:46 PM EDT [facility] MCV 91.5 79.0 - 98.0 FL LAB HEMETOLOGY METHOD 11/14/2024 12:46 PM EDT [facility] MCH 29.4 27.0 - 32.0 pcg LAB HEMETOLOGY METHOD 11/14/2024 12:46 PM EDT [facility] MCHC 32.2 32.0 - 37.0 g/dL LAB HEMETOLOGY METHOD 11/14/2024 12:46 PM EDT [facility] RDW 18.4(H) 11.0 - 15.0 % LAB HEMETOLOGY METHOD 11/14/2024 12:46 PM EDT [facility] Platelets 424(H) 130 - 400 K/mcL LAB HEMETOLOGY METHOD 11/14/2024 12:46 PM EDT [facility] MPV 9.6 7.0 - 11.0 FL LAB HEMETOLOGY METHOD 11/14/2024 12:46 PM EDT [facility] NRBC 0.0 <1.0 % LAB HEMETOLOGY METHOD 11/14/2024 12:46 PM EDT [facility] NRBC Absolute 0.00 <0.10 K/mcL LAB HEMETOLOGY METHOD 11/14/2024 12:46 PM EDT [facility] Blood Venous blood specimen / Unknown Venipuncture / Unknown 11/14/2024 5:25 AM EDT 11/14/2024 10:55 AM EDT us Steven Lopez MD LAB BLOOD ORDERABLES Final Resul t [facility] [address] [place] [address], documented in this encounter Visit Diagnoses Diagnosis Acute combined systolic (congestive) and diastolic (congestive) heart failure (CMS/HCC V24, CMS/HCC V28) Acute respiratory failure with hypoxia (CMS/HCC V24, CMS/HCC V28) documented in this encounter Additional Health Concerns Infection Onset Date Last Indicated Resolved Time 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
--- OUTSIDE RECORDS SUMMARY | 2024-12-22 13:30 | XMS_ITS | Encounter Summary ---
Author Organization [facility] Address [address] [place] [address] Care Team Providers Care Bundle Person Name Role Phone Fidel Davis MD Primary Care Provider [phone] Reason for Visit * Reason Onset Date Comments faxed order 12/21/2024 Ted skaggse r [id number], [id number], [id number], [id number] Encounter Details Date Type Department Care Team ([facility] st Contact Info) Description 12/21/2024 Telephone Adult Medicine [address] [phone] Fidel Davis MD [address] [place] [address] Social History Tobacco Use Types Packs/Day Years [...] on file documented as of this encounter Progress Notes * Grisel Fallon - 12/21/2024 4:49 PM EDT [facility] order [id number], [id number], [id number] received please sign and fax to [phone] documented in this encounter Plan of Treatment Upcoming Encounters Date Type Department Care Team (Late st Contact Info) Description 05/23/2025 4:00 PM EDT Office Visit Adult Medicine [address] [phone] Fidel Davis MD [address] [place] [address] documented as of this encounter Visit Diagnoses Not on filedocumented in this encounter Additional Health Concerns Infection Onset Date Last Indicated Resolved Time 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
--- OUTSIDE RECORDS SUMMARY | 2024-12-22 13:30 | XMS_ITS | Encounter Summary ---
Author Organization [facility] Address [address] [place] [address] Care Team Providers Care Implementation Engineer Name Role Phone Fidel Davis MD Primary Care Provider [phone] Reason for Visit * Reason Onset Date Comments Forms/questionnaires 11/28/2024 Encounter Details Date Type Department Care Team (Late Contact Info) Description 11/28/2024 Telephone Adult Medicine [address] [phone] Wendi Beatty MA Social History Tobacco Use Types Packs/Day Years [...] as of this encounter Progress Notes * Wendi Beatty MA - 11/28/2024 2:43 PM EDT Service net medication change form documented in this encounter Plan of Treatment Upcoming Encounters Date Type Department Care Team (Late Contact Info) Description 05/23/2025 4:00 PM EDT Office Visit Adult Medicine [address] [phone] Fidel Davis MD [address] [place] [address] documented as of this encounter Visit Diagnoses Not on filedocumented in this encounter Additional Health Concerns Infection Onset Date Last Indicated Resolved Time 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
--- OUTSIDE RECORDS SUMMARY | 2024-12-22 13:30 | XMS_ITS | Encounter Summary ---
Author Organization [facility] Address [address] [place] [phone] Care Team Providers Care Sueding Machine Tender Name Role Phone Fidel Davis MD Primary Care Provider [phone] Encounter Details Date Type Department Care Team (Late Contact Info) Description 02/09/2024 Lab Requisition [facility] - Main Lab [address] [facility] [place] [phone] Jono Mao MD [address] [place] [address] Sepsis, unspecified organism (CMS/HCC V24, CMS/HCC V28) [...] 4:00 PM EDT Office Visit Adult Medicine [address] [phone] Fidel Davis MD [address] [place] [address] documented as of this encounter Procedures Procedure Name Priority Date/Time Associated Diagnosis Comments COMPLETE BLOOD COUNT Routine 02/09/2024 5:19 AM EST Sepsis, unspecified organism (CMS/HCC) BASIC METABOLIC PANEL Routine 02/09/2024 5:19 AM EST Sepsis, unspecified organism (CMS/HCC) documented in this encounter Results * Basic metabolic panel (02/09/2024 5:19 AM EST) Sodium 137 133 - 145 mmol/L LAB CHEMISTRY METHOD 02/09/2024 11:25 AM [facility] Potassium 4.6 3.5 - 5.5 mmol/L LAB CHEMISTRY METHOD 02/09/2024 11:25 AM [facility] Chloride 100 96 - 110 mmol/L LAB CHEMISTRY METHOD 02/09/2024 11:25 AM [facility] CO2 32 21 - 32 mmol/L LAB CHEMISTRY METHOD 02/09/2024 11:25 AM [facility] Anion Gap 5 3 - 11 LAB CHEMISTRY METHOD 02/09/2024 11:25 AM [facility] Glucose 91 70 - 100 mg/dL LAB CHEMISTRY METHOD 02/09/2024 11:25 AM [facility] BUN 18 5 - 25 mg/dL LAB CHEMISTRY METHOD 02/09/2024 11:25 AM [facility] Creatinine 1.23 0.70 - 1.30 mg/dL LAB CHEMISTRY METHOD 02/09/2024 11:25 AM [facility] eGFR 61 >=60 mL/min/1. 73m2 LAB CHEMISTRY METHOD 02/09/2024 11:25 AM [facility] Comment:Calculation based on the Chronic Kidney Disease Epidemiology Collaboration (CKD-EPI) equation refit without adjustment for race. BUN/Creatinine Ratio 14.6 LAB CHEMISTRY METHOD 02/09/2024 11:25 AM [facility] Calcium 8.7 8.5 - 10.5 mg/dL LAB CHEMISTRY METHOD 02/09/2024 11:25 AM [facility] Blood Venous blood specimen / Unknown Venipuncture / Unknown 02/09/2024 5:19 AM EST 02/09/2024 10:28 AM EST Jono Mao MD LAB BLOOD ORDERABLES Final Resul t [facility] [address] [place] [address], * (ABNORMAL) Complete blood count (02/09/2024 5:19 AM EST) WBC 9.1 4.8 - 10.8 K/mcL LAB HEMETOLOGY METHOD 02/09/2024 11:10 AM [facility] RBC 3.20(L) 4.50 - 5.50 M/mcL LAB HEMETOLOGY METHOD 02/09/2024 11:10 AM [facility] Hemoglobin 10.0(L) 13.5 - 17.5 g/dL LAB HEMETOLOGY METHOD 02/09/2024 11:10 AM [facility] Hematocrit 31.6(L) 42.0 - 54.0 % LAB HEMETOLOGY METHOD 02/09/2024 11:10 AM [facility] MCV 98.8(H) 79.0 - 98.0 FL LAB HEMETOLOGY METHOD 02/09/2024 11:10 AM [facility] MCH 31.3 27.0 - 32.0 pcg LAB HEMETOLOGY METHOD 02/09/2024 11:10 AM [facility] MCHC 31.6(L) 32.0 - 37.0 g/dL LAB HEMETOLOGY METHOD 02/09/2024 11:10 AM [facility] RDW 14.6 11.0 - 15.0 % LAB HEMETOLOGY METHOD 02/09/2024 11:10 AM [facility] Platelets 383 130 - 400 K/mcL LAB HEMETOLOGY METHOD 02/09/2024 11:10 AM EST [facility] MPV 10.7 7.0 - 11.0 FL LAB HEMETOLOGY METHOD 02/09/2024 11:10 AM EST [facility] NRBC 0.0 <1.0 % LAB HEMETOLOGY METHOD 02/09/2024 11:10 AM EST [facility] NRBC Absolute 0.00 <0.10 K/mcL LAB HEMETOLOGY METHOD 02/09/2024 11:10 AM EST [facility] Blood Venous blood specimen / Unknown Venipuncture / Unknown 02/09/2024 5:19 AM EST 02/09/2024 10:28 AM EST us Jono Mao MD LAB BLOOD ORDERABLES Final Resul t [facility] [address] [place] [address], documented in this encounter Visit Diagnoses Diagnosis Sepsis, unspecified organism (CMS/HCC V24, CMS/HCC V28) documented in this encounter Additional Health Concerns Infection Onset Date Last Indicated Resolved Time 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
--- OUTSIDE RECORDS SUMMARY | 2024-12-22 13:30 | XMS_ITS | Encounter Summary ---
Author Organization [facility] Address [address] [place] [phone] Care Team Providers Care Computer Numerical Control Machinist Name Role Phone Fidel Davis MD Primary Care Provider [phone] Encounter Details Date Type Department Care Team (Late Contact Info) Description 11/18/2024 Lab Requisition [facility] - Main Lab 299 [facility] [place] [address] Steven Lopez MD [address] [place] [address], [phone] Acute combined systolic (congestive) and diastolic [...] PM EDT Office Visit Adult Medicine [address] [phone] Fidel Davis MD [address] [place] [address] documented as of this encounter Procedures Procedure Name Priority Date/Time Associated Diagnosis Comments COMPLETE BLOOD COUNT Routine 11/21/2024 5:52 AM EDT Acute combined systolic (congestive) and diastolic (congestive) heart failure (CMS/HCC V24, CMS/HCC V28) Acute respiratory failure with hypoxia (CMS/HCC V24, CMS/HCC V28) BASIC METABOLIC PANEL Routine 11/21/2024 5:52 AM EDT Acute combined systolic (congestive) and diastolic (congestive) heart failure (CMS/HCC V24, CMS/HCC V28) Acute respiratory failure with hypoxia (CMS/HCC V24, CMS/HCC V28) documented in this encounter Results * Basic metabolic panel (11/21/2024 5:52 AM EDT) Sodium 135 133 - 145 mmol/L LAB CHEMISTRY METHOD 11/21/2024 1:[address] [facility] Potassium 5.2 3.5 - 5.5 mmol/L LAB CHEMISTRY METHOD 11/21/2024 1:[address] [facility] Chloride 103 96 - 110 mmol/L LAB CHEMISTRY METHOD 11/21/2024 1:[address] [facility] CO2 24 21 - 32 mmol/L LAB CHEMISTRY METHOD 11/21/2024 1:[address] [facility] Anion Gap 8 3 - 11 LAB CHEMISTRY METHOD 11/21/2024 1:[address] [facility] Glucose 70 70 - 100 mg/dL LAB CHEMISTRY METHOD 11/21/2024 1:[address] [facility] BUN 21 5 - 25 mg/dL LAB CHEMISTRY METHOD 11/21/2024 1:[address] [facility] Creatinine 1.00 0.70 - 1.30 mg/dL LAB CHEMISTRY METHOD 11/21/2024 1:[address] [facility] eGFR 78 >=60 mL/min/1. 73m2 LAB CHEMISTRY METHOD 11/21/2024 1:59 PM EDT [facility] Comment:Calculation based on the Chronic Kidney Disease Epidemiology Collaboration (CKD-EPI) equation refit without adjustment for race. BUN/Creatinine Ratio 21.0 LAB CHEMISTRY METHOD 11/21/2024 1:59 PM EDT [facility] Calcium 8.7 8.5 - 10.5 mg/dL LAB CHEMISTRY METHOD 11/21/2024 1:59 PM EDT [facility] Blood Venous blood specimen / Unknown Venipuncture / Unknown 11/21/2024 5:52 AM EDT 11/21/2024 11:00 AM EDT us Steven Lopez MD LAB BLOOD ORDERABLES Final Resul t [facility] [address] [place] [address], * (ABNORMAL) Complete blood count (11/21/2024 5:52 AM EDT) WBC 7.5 4.8 - 10.8 K/mcL LAB HEMETOLOGY METHOD 11/21/2024 1:31 PM EDT [facility] RBC 3.60(L) 4.50 - 5.50 M/mcL LAB HEMETOLOGY [facility] Hemoglobin 10.8(L) 13.5 - 17.5 g/dL LAB HEMETOLOGY METHOD 11/21/2024 1:31 PM EDT [facility] Hematocrit 33.3(L) 42.0 - 54.0 % LAB HEMETOLOGY METHOD 11/21/2024 1:31 PM EDT [facility] MCV 92.5 79.0 - 98.0 FL LAB HEMETOLOGY METHOD 11/21/2024 1:31 PM EDT [facility] MCH 30.0 27.0 - 32.0 pcg LAB HEMETOLOGY METHOD 11/21/2024 1:31 PM EDT [facility] MCHC 32.4 32.0 - 37.0 g/dL LAB HEMETOLOGY METHOD 11/21/2024 1:31 PM EDT [facility] RDW 18.4(H) 11.0 - 15.0 % LAB HEMETOLOGY METHOD 11/21/2024 1:31 PM EDT [facility] Platelets 504(H) 130 - 400 K/mcL LAB HEMETOLOGY METHOD 11/21/2024 1:31 PM EDT [facility] MPV 9.2 7.0 - 11.0 FL LAB HEMETOLOGY METHOD 11/21/2024 1:31 PM EDT [facility] NRBC 0.0 <1.0 % LAB HEMETOLOGY METHOD 11/21/2024 1:31 PM EDT [facility] NRBC Absolute 0.00 <0.10 K/mcL LAB HEMETOLOGY METHOD 11/21/2024 1:31 PM EDT [facility] Blood Venous blood specimen / Unknown Venipuncture / Unknown 11/21/2024 5:52 AM EDT 11/21/2024 11:00 AM EDT us Steven Lopez MD LAB BLOOD ORDERABLES Final Resul t [facility] [address] [place] [address], documented in this encounter Visit Diagnoses Diagnosis Acute combined systolic (congestive) and diastolic (congestive) heart failure (CMS/HCC V24, CMS/HCC V28) Acute respiratory failure with hypoxia (CMS/HCC V24, CMS/HCC V28) documented in this encounter Additional Health Concerns Infection Onset Date Last Indicated Resolved Time 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
--- OUTSIDE RECORDS SUMMARY | 2024-12-22 13:30 | XMS_ITS | Encounter Summary ---
Author Organization [facility] Address [address] [place] [phone] Care Team Providers Care Vacuum Form Operator Name Role Phone Fidel Davis MD Primary Care Provider [phone] Reason for Visit * Reason Onset Date Comments Medication Problem 12/05/2024 Encounter Details Date Type Department Care Team ([facility] st Contact Info) Description 12/05/2024 Telephone Adult Medicine [address] [phone] Fidel Davis MD [address] [place] [address] Social History Tobacco Use Types Packs/Day Years [...] on file documented as of this encounter Ordered Prescriptions Prescription Sig Dispense Quantity Refills Last Filled Start Date End Date gabapentin (Neurontin) 400 mg capsule Take 1 capsule (400 mg total) by mouth 3 (three) times a day. 90 each 5 12/08/2024 documented in this encounter Progress Notes * Fidel Davis MD - 12/08/2024 7:24 PM EDT Rx sent * Gonzales Maria MA - 12/08/2024 1:16 PM EDT HOLLI 11/28/24, erin review and advise on message below. * Yarelis Nicki - 12/05/2024 9:53 AM EDT Medication Problem: What is the name of the medication patient is having a problem with?: gabapentin (NEURONTIN) 300 mgcapsule What is the problem?: [facility] is calling. Per caller the gabapentin was changed to 400 mg, 3 x per day when the patient went to rehab. He needs a new prescription sent to [facility]. Who is calling about the problem? : Other: Name of caller: Carter Relationship to patient: Snf Is this a NEW medication?: no How long has the patient been taking this medication? ongoing Who prescribed this medication for the patient? [facility] made the change. Who is patients PCP?: Fidel Davis MD Payor: MEDICARE / Plan: MEDICARE PART A & B / Product Type: Medicare / documented in this encounter Plan of Treatment Upcoming Encounters Date Type Department Care Team (Late st Contact Info) Description 05/23/2025 4:00 PM EDT Office Visit Adult Medicine [address] [phone] Fidel Davis MD [address] [place] [address] documented as of this encounter Visit Diagnoses Not on filedocumented in this encounter Discontinued Medications Medication Sig Discontinue Reason Start Date End Da te gabapentin (NEURONTIN) 300 mg capsule Take 1 capsule (300 mg total) by mouth 3 (three) times a day. 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
--- OUTSIDE RECORDS SUMMARY | 2024-12-22 13:30 | XMS_ITS | Clinical Summary ---
Author Organization [facility] Address [address] [place] [address] Care Team Providers Care Lift Team Technician Name Role Phone Unavailable Primary Care Provider Unavailabl e Source Comments PLEASE NOTE, if this patient is a minor, it may be UNLAWFUL to discuss sensitive information that is contained in these records (such as FAMILY PLANNING, MENTAL HEALTH or SUBSTANCE ABUSE) with the minor patient's parent or other person without the patient's specific authorization.[facility] Allergies Active Allergy Reactions Criticality Noted Date Comments Plasma Protein Fraction 05/12/2024 Medications No known medications Social History Tobacco Use Types Packs/Day Years Used Date Smoking Tobacco: Never Assessed Social Connections Answer Date Recorded Connectedness 0 12/07/2023 Financial Resource Strain Answer Date R ecorded Financial Resource Strain 0 2023 Stress Answer Date Recorded Stress 0 12/07/2023 Physical Activity Answer Date Recorded Physical Activity 0 12/07/2023 Food Insecurity Answer Date Recorded Food 0 12/07/2023 Transportation Needs Answer Date Record ed Transportation 0 12/07/2023 Housing Stability Answer Date Recorded Housing 0 12/07/2023 Safety and Environment Answer Date Adolph rded Safety 0 12/07/2023 Utilities Answer Date Recorded Utilities 0 12/07/2023 Employment Answer Date Recorded Stress 0 12/07/2023 Sex and Gender Information Value Date Recorded Sex Assigned at Not on file Legal Sex Male 1:10 PM PDT Gender Identity Not on file Sexual Orientation Not on file Plan of Treatment Health Maintenance Due Date Last Done Comments Dental Perio Charting 1948 Dental Prophy 1948 Hepatitis C Screening 1948 Tobacco Screening 1948 Hypertension Screening (#1) 1966 Imm-Zoster, Recombinant (1 of 2) 1998 Falls Prevention 2013 Imm-DTaP/Tdap/Td (1 - Tdap) 02/21/2021 02/20/2021, 0 03/04/2019 Imm-RSV (adult) (1 - 1-dose 75+ series) 07/05/2023 Alcohol and Drug Screen 03/02/2024 Depression Annual Screen 03/02/2024 [id number] (2024- season) 2024 01/20/2021, 05/12/2020, 04/21/2020 Imm-Influenza (#1) 2024 12/01/2023, 0 03/04/2019, 11/04/2018, Additional history exists Dental BW 05/14/2025 05/12/2024 Dental Examination 05/14/2025 05/12/2024 Dental FMX/Pano 05/14/2029 05/12/2024 Imm-Pneumococcal 50+ Completed 03/04/2019, 01/15/2016, 08/29/2010 Procedures Procedure Name Priority Date/Time Associated Diagnosis Comments INTRAORAL - COMP SERIES OF RADIOGRAPHIC IMAGES Routine 05/12/2024 4:00 PM EDT Dental caries on smooth surface penetrating into pulp Fracture of crown, enamel, and dentin of tooth with pulp exposure COMP ORAL EVALUATION - NEW/ESTABLISHED PATIENT Routine 05/12/2024 4:00 PM EDT Dental caries on smooth surface penetrating into pulp Fracture of crown, enamel, and dentin of tooth with pulp exposure from Last 3 Months or Most Recently Relevant to Health Maintenance Insurance [place] MED[place]ID DENT[place]
--- OUTSIDE RECORDS SUMMARY | 2024-12-22 13:30 | XMS_ITS | Encounter Summary ---
Author Organization [facility] Address [address] [place] [phone] Care Team Providers Care Health And Wellness Director Name Role Phone Fidel Davis MD Primary Care Provider [phone] Encounter Details Date Type Department Care Team (Late Contact Info) Description 09/17/2024 Lab Requisition [facility] - Main Lab 299 [facility] [place] [address] Steven Lopez MD [address] [place] [address], [phone] Acute combined systolic (congestive) and diastolic [...] 4:00 PM EDT Office Visit Adult Medicine [address] [phone] Fidel Davis MD [address] [place] [address] documented as of this encounter Procedures Procedure Name Priority Date/Time Associated Diagnosis Comments COMPLETE BLOOD COUNT Routine 09/19/2024 5:26 AM EDT Acute combined systolic (congestive) and diastolic (congestive) heart failure (CMS/HCC V24, CMS/HCC V28) Acute respiratory failure with hypoxia (CMS/HCC V24, CMS/HCC V28) BASIC METABOLIC PANEL Routine 09/19/2024 5:26 AM EDT Acute combined systolic (congestive) and diastolic (congestive) heart failure (CMS/HCC V24, CMS/HCC V28) Acute respiratory failure with hypoxia (CMS/HCC V24, CMS/HCC V28) documented in this encounter Results * (ABNORMAL) Basic metabolic panel (09/19/2024 5:26 AM EDT) Sodium 132(L) 133 - 145 mmol/L LAB CHEMISTRY METHOD 09/19/2024 3:25 PM [facility] Potassium 4.8 3.5 - 5.5 mmol/L LAB CHEMISTRY METHOD 09/19/2024 3:25 PM [facility] Chloride 96 96 - 110 mmol/L LAB CHEMISTRY METHOD 09/19/2024 3:25 PM [facility] CO2 26 21 - 32 mmol/L LAB CHEMISTRY METHOD 09/19/2024 3:25 PM [facility] Anion Gap 10 3 - 11 LAB CHEMISTRY METHOD 09/19/2024 3:25 PM [facility] Glucose 74 70 - 100 mg/dL LAB CHEMISTRY METHOD 09/19/2024 3:25 PM [facility] BUN 32(H) 5 - 25 mg/dL LAB CHEMISTRY METHOD 09/19/2024 3:25 PM [facility] Creatinine 1.19 0.70 - 1.30 mg/dL LAB CHEMISTRY METHOD 09/19/2024 3:25 PM [facility] eGFR 63 >=60 mL/min/1. 73m2 LAB CHEMISTRY METHOD 09/19/2024 3:25 PM EDT [facility] Comment:Calculation based on the Chronic Kidney Disease Epidemiology Collaboration (CKD-EPI) equation refit without adjustment for race. BUN/Creatinine Ratio 26.9 LAB CHEMISTRY METHOD 09/19/2024 3:25 PM EDT [facility] Calcium 8.8 8.5 - 10.5 mg/dL LAB CHEMISTRY METHOD 09/19/2024 3:25 PM EDT [facility] Blood Venous blood specimen / Unknown Venipuncture / Unknown 09/19/2024 5:26 AM EDT 09/19/2024 11:23 AM EDT us Steven Lopez MD LAB BLOOD ORDERABLES Final Resul t [facility] [address] [place] [address], * (ABNORMAL) Complete blood count (09/19/2024 5:26 AM EDT) WBC 11.5(H) 4.8 - 10.8 K/mcL LAB HEMETOLOGY METHOD 09/19/2024 12:07 PM [facility] RBC 3.70(L) 4.50 - 5.50 M/mcL LAB HEMETOLOGY METHOD 09/19/2024 12:07 PM [facility] Hemoglobin 11.2(L) 13.5 - 17.5 g/dL LAB HEMETOLOGY METHOD 09/19/2024 12:07 PM [facility] Hematocrit 34.9(L) 42.0 - 54.0 % LAB HEMETOLOGY METHOD 09/19/2024 12:07 PM [facility] MCV 94.1 79.0 - 98.0 FL LAB HEMETOLOGY METHOD 09/19/2024 12:07 PM [facility] MCH 30.2 27.0 - 32.0 pcg LAB HEMETOLOGY METHOD 09/19/2024 12:07 PM EDT [facility] MCHC 32.1 32.0 - 37.0 g/dL LAB HEMETOLOGY METHOD 09/19/2024 12:07 PM EDT [facility] RDW 16.4(H) 11.0 - 15.0 % LAB HEMETOLOGY METHOD 09/19/2024 12:07 PM EDT [facility] Platelets 525(H) 130 - 400 K/mcL LAB HEMETOLOGY METHOD 09/19/2024 12:07 PM EDT [facility] MPV 10.7 7.0 - 11.0 FL LAB HEMETOLOGY METHOD 09/19/2024 12:07 PM EDT [facility] NRBC 0.0 <1.0 % LAB HEMETOLOGY METHOD 09/19/2024 12:07 PM EDT [facility] NRBC Absolute 0.00 <0.10 K/mcL LAB HEMETOLOGY METHOD 09/19/2024 12:07 PM EDT [facility] Blood Venous blood specimen / Unknown Venipuncture / Unknown 09/19/2024 5:26 AM EDT 09/19/2024 11:23 AM EDT us Steven Lopez MD LAB BLOOD ORDERABLES Final Resul t [facility] [address] [place] [address], documented in this encounter Visit Diagnoses Diagnosis Acute combined systolic (congestive) and diastolic (congestive) heart failure (CMS/HCC V24, CMS/HCC V28) Acute respiratory failure with hypoxia (CMS/HCC V24, CMS/HCC V28) documented in this encounter Additional Health Concerns Infection Onset Date Last Indicated Resolved Time 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
--- OUTSIDE RECORDS SUMMARY | 2024-12-22 13:30 | XMS_ITS | Encounter Summary ---
Author Organization [facility] Address [address] [place] [address] Care Team Providers Care Test Tech Name Role Phone Fidel Davis MD Primary Care Provider [phone] Reason for Visit * Reason Onset Date Comments Results 12/05/2024 Encounter Details Date Type Department Care Team ([facility] st Contact Info) Description 12/05/2024 Telephone Adult Medicine [address] [phone] Fidel Davis MD [address] [place] [address] Social History Tobacco Use Types Packs/Day Years [...] as of this encounter Progress Notes * Jony Bryant MA - 12/14/2024 1:12 PM EDT DOMONIQUE * Yarelis Caceres - 12/05/2024 9:56 AM EDT detention is calling. Patient is participating in a drug trial at [facility] today. His urine did not look normal and the intermediate called the program at [facility] and asked them to check his urine. They agreed to do this but will contact Dr. Davis with the results. detention is asking to be notified by us if there is any issue. 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
--- OUTSIDE RECORDS SUMMARY | 2024-12-22 13:30 | XMS_ITS | Encounter Summary ---
Author Organization [facility] Address [address] [place] [phone] Care Team Providers Care Toll Line Repairer Name Role Phone Fidel Davis MD Primary Care Provider [phone] Encounter Details Date Type Department Care Team (Late Contact Info) Description 10/21/2024 Lab Requisition [facility] - Main Lab 299 [facility] [place] [address] Steven Lopez MD [address] [place] [address], [phone] Acute combined systolic (congestive) and diastolic [...] PM EDT Office Visit Adult Medicine [address] [phone] Fidel Davis MD [address] [place] [address] documented as of this encounter Procedures Procedure Name Priority Date/Time Associated Diagnosis Comments COMPLETE BLOOD COUNT Routine 10/24/2024 5:41 AM [...] this encounter Results * Basic metabolic panel (10/24/2024 5:41 AM EDT) Sodium 134 133 - 145 mmol/L LAB CHEMISTRY METHOD 10/24/2024 11:24 AM [facility] Potassium 5.1 3.5 - 5.5 mmol/L LAB CHEMISTRY METHOD 10/24/2024 11:24 AM [facility] Chloride 101 96 - 110 mmol/L LAB CHEMISTRY METHOD 10/24/2024 11:24 AM [facility] CO2 26 21 - 32 mmol/L LAB CHEMISTRY METHOD 10/24/2024 11:24 AM [facility] Anion Gap 7 3 - 11 LAB CHEMISTRY METHOD 10/24/2024 11:24 AM [facility] Glucose 79 70 - 100 mg/dL LAB CHEMISTRY METHOD 10/24/2024 11:24 AM [facility] BUN 20 5 - 25 mg/dL LAB CHEMISTRY METHOD 10/24/2024 11:24 AM [facility] Creatinine 1.12 0.70 - 1.30 mg/dL LAB CHEMISTRY METHOD 10/24/2024 11:24 AM [facility] eGFR 68 >=60 mL/min/1. 73m2 LAB CHEMISTRY METHOD 10/24/2024 11:24 AM EDT [facility] Comment:Calculation based on the Chronic Kidney Disease Epidemiology Collaboration (CKD-EPI) equation refit without adjustment for race. BUN/Creatinine Ratio 17.9 LAB CHEMISTRY METHOD 10/24/2024 11:24 AM EDT [facility] Calcium 8.7 8.5 - 10.5 mg/dL LAB CHEMISTRY METHOD 10/24/2024 11:24 AM EDT [facility] Blood Venous blood specimen / Unknown Venipuncture / Unknown 10/24/2024 5:41 AM EDT 10/24/2024 10:11 AM EDT us Steven Lopez MD LAB BLOOD ORDERABLES Final Resul t [facility] [address] [place] [address], * (ABNORMAL) Complete blood count (10/24/2024 5:41 AM EDT) WBC 8.8 4.8 - 10.8 K/mcL LAB HEMETOLOGY METHOD 10/24/2024 10:59 AM EDT [facility] RBC 4.00(L) 4.50 - 5.50 M/mcL LAB HEMETOLOGY METHOD 10/24/2024 10:59 AM [facility] Hemoglobin 11.7(L) 13.5 - 17.5 g/dL LAB HEMETOLOGY METHOD 10/24/2024 10:59 AM EDT [facility] Hematocrit 35.9(L) 42.0 - 54.0 % LAB HEMETOLOGY METHOD 10/24/2024 10:59 AM EDT [facility] MCV 90.7 79.0 - 98.0 FL LAB HEMETOLOGY METHOD [facility] MCH 29.5 27.0 - 32.0 pcg LAB HEMETOLOGY METHOD 10/24/2024 10:59 AM EDT [facility] MCHC 32.6 32.0 - 37.0 g/dL LAB HEMETOLOGY METHOD 10/24/2024 10:59 AM EDT [facility] RDW 17.2(H) 11.0 - 15.0 % LAB HEMETOLOGY METHOD 10/24/2024 10:59 AM EDT [facility] Platelets 560(H) 130 - 400 K/mcL LAB HEMETOLOGY METHOD 10/24/2024 10:59 AM EDT [facility] MPV 9.6 7.0 - 11.0 FL LAB HEMETOLOGY METHOD 10/24/2024 10:59 AM EDT [facility] NRBC 0.0 <1.0 % LAB HEMETOLOGY METHOD 10/24/2024 10:59 AM EDT [facility] NRBC Absolute 0.00 <0.10 K/mcL LAB HEMETOLOGY METHOD 10/24/2024 10:59 AM EDT [facility] Blood Venous blood specimen / Unknown Venipuncture / Unknown 10/24/2024 5:41 AM EDT 10/24/2024 10:11 AM EDT us Steven Lopez MD LAB BLOOD ORDERABLES Final Resul t [facility] [address] [place] [address], documented in this encounter Visit Diagnoses Diagnosis Acute combined systolic (congestive) and diastolic (congestive) heart failure (CMS/HCC V24, CMS/HCC V28) Acute respiratory failure with hypoxia (CMS/HCC V24, CMS/HCC V28) documented in this encounter Additional Health Concerns Infection Onset Date Last Indicated Resolved Time VRE 03/02/2024 03/02/2024 ESBL 07/27/2024 07/27/2024 documented as of this encounter Care Teams Toll Line Repairer Relationship Specialty Start Date End Date Fidel Davis MD [address] [place] [address] PCP - General Internal Medicine 10/19/24 documented as of this encounter
--- OUTSIDE RECORDS SUMMARY | 2024-12-22 13:30 | XMS_ITS | Encounter Summary ---
Author Organization [facility] Address [address] [place] [phone] Care Team Providers Care Credit Reference Clerk Name Role Phone Fidel Davis MD Primary Care Provider [phone] Encounter Details Date Type Department Care Team (Late st Contact Info) Description 11/25/[address] [facility] - Main Lab 299 [facility] [place] [address] Steven Lopez MD [address] [place] [address], [phone] Acute combined systolic (congestive) and diastolic [...] 4:00 PM EDT Office Visit Adult Medicine [address] [phone] Fidel Davis MD [address] [place] [address] documented as of this encounter Visit Diagnoses Diagnosis Acute combined systolic (congestive) and diastolic (congestive) heart failure ([facility] V24, [facility] V28) Acute respiratory failure with hypoxia ([facility] V24, [facility] V28) documented in this encounter Additional Health Concerns Infection Onset Date Last Indicated Resolved Time VRE 03/02/2024 03/02/2024 ESBL 07/27/2024 07/27/2024 documented as of this encounter Care Teams Credit Reference Clerk Relationship Specialty Start Date End Date Fidel Davis MD [address] [place] [phone] PCP - General Internal Medicine 10/19/24 documented as of this encounter
--- OUTSIDE RECORDS SUMMARY | 2024-12-22 13:30 | XMS_ITS | Encounter Summary ---
Author Organization [facility] Address [address] [place] [address] Care Team Providers Care Group Controller Name Role Phone Fidel Davis MD Primary Care Provider [phone] Encounter Details Date Type Department Care Team (Late Contact Info) Description 02/10/2024 Lab Requisition [facility] - Main Lab 299 [facility] [place] [phone] Jono Mao MD [address] [place] [address] Pneumonitis due to inhalation of food and vomit (CMS/HCC V24, CMS/HCC V28) Social History Tobacco [...] 4:00 PM EDT Office Visit Adult Medicine [address] [phone] Fidel Davis MD [address] [place] [phone] documented as of this encounter Procedures Procedure Name Priority Date/Time Associated Diagnosis Comments COMPLETE BLOOD COUNT Routine 02/10/2024 6:21 AM EST Pneumonitis due to inhalation of food and vomit (CMS/HCC) BASIC METABOLIC PANEL Routine 02/10/2024 6:21 AM EST Pneumonitis due to inhalation of food and vomit (CMS/HCC) documented in this encounter Results * Basic metabolic panel (02/10/2024 6:21 AM EST) Sodium 138 133 - 145 mmol/L LAB CHEMISTRY METHOD 02/10/2024 11:43 AM [facility] Potassium 4.3 3.5 - 5.5 mmol/L LAB CHEMISTRY METHOD 02/10/2024 11:43 AM [facility] Chloride 103 96 - 110 mmol/L LAB CHEMISTRY METHOD 02/10/2024 11:43 AM [facility] CO2 30 21 - 32 mmol/L LAB CHEMISTRY METHOD 02/10/2024 11:43 AM [facility] Anion Gap 5 3 - 11 LAB CHEMISTRY METHOD 02/10/2024 11:43 AM [facility] Glucose 75 70 - 100 mg/dL LAB CHEMISTRY METHOD 02/10/2024 11:43 AM [facility] BUN 20 5 - 25 mg/dL LAB CHEMISTRY METHOD 02/10/2024 11:43 AM [facility] Creatinine 1.18 0.70 - 1.30 mg/dL LAB CHEMISTRY METHOD 02/10/2024 11:43 AM [facility] eGFR 64 >=60 mL/min/1. 73m2 LAB CHEMISTRY METHOD 02/10/2024 11:43 AM [facility] Comment:Calculation based on the Chronic Kidney Disease Epidemiology Collaboration (CKD-EPI) equation refit without adjustment for race. BUN/Creatinine Ratio 16.9 LAB CHEMISTRY METHOD 02/10/2024 11:43 AM [facility] Calcium 8.7 8.5 - 10.5 mg/dL LAB CHEMISTRY METHOD 02/10/2024 11:43 AM [facility] Blood Venous blood specimen / Unknown Venipuncture / Unknown 02/10/2024 6:21 AM EST 02/10/2024 9:10 AM EST Jono Mao MD LAB BLOOD ORDERABLES Final Resul t [facility] [address] [place] [address], * (ABNORMAL) Complete blood count (02/10/2024 6:21 AM EST) WBC 8.0 4.8 - 10.8 K/mcL LAB HEMETOLOGY METHOD 02/10/2024 11:13 AM [facility] RBC 3.00(L) 4.50 - 5.50 M/mcL LAB HEMETOLOGY METHOD 02/10/2024 11:13 AM [facility] Hemoglobin 9.5(L) 13.5 - 17.5 g/dL LAB HEMETOLOGY METHOD 02/10/2024 11:13 AM [facility] Hematocrit 30.3(L) 42.0 - 54.0 % LAB HEMETOLOGY METHOD 02/10/2024 11:13 AM [facility] MCV 100.3(H) 79.0 - 98.0 FL LAB HEMETOLOGY METHOD 02/10/2024 11:13 AM [facility] MCH 31.5 27.0 - 32.0 pcg LAB HEMETOLOGY METHOD 02/10/2024 11:13 AM [facility] MCHC 31.4(L) 32.0 - 37.0 g/dL LAB HEMETOLOGY METHOD 02/10/2024 11:13 AM [facility] RDW 14.5 11.0 - 15.0 % LAB HEMETOLOGY METHOD 02/10/2024 11:13 AM [facility] Platelets 371 130 - 400 K/mcL LAB HEMETOLOGY METHOD 02/10/2024 11:[address] [facility] MPV 10.5 7.0 - 11.0 FL LAB HEMETOLOGY METHOD 02/10/2024 11:[address] [facility] NRBC 0.0 <1.0 % LAB HEMETOLOGY METHOD 02/10/2024 11:[address] [facility] NRBC Absolute 0.00 <0.10 K/mcL LAB HEMETOLOGY METHOD 02/10/2024 11:[address] [facility] Blood Venous blood specimen / Unknown Venipuncture / Unknown 02/10/2024 6:21 AM EST 02/10/2024 9:10 AM EST us Jono Mao MD LAB BLOOD ORDERABLES Final Resul t [facility] [address] [place] [address], documented in this encounter Visit Diagnoses Diagnosis Pneumonitis due to inhalation of food and vomit (CMS/HCC V24, CMS/HCC V28) documented in this encounter Additional Health Concerns Infection Onset Date Last Indicated Resolved Time VRE 03/02/2024 03/02/2024 ESBL 07/27/2024 07/27/2024 documented as of this encounter Care Teams Group Controller Relationship Specialty Start Date End Date Fidel Davis MD [address] [place] [phone] PCP - General Internal Medicine 10/19/24 documented as of this encounter
--- OUTSIDE RECORDS SUMMARY | 2024-12-22 13:30 | XMS_ITS | Encounter Summary ---
Author Organization [facility] Address [address] [place] [address] Care Team Providers Care Bar Host Name Role Phone Fidel Davis MD Primary Care Provider [phone] Encounter Details Date Type Department Care Team (Late Contact Info) Description 11/28/2024 Results Follow-Up Adult Medicine [address] [phone] Fidel Davis MD [address] [place] [address] Social History Tobacco Use Types Packs/Day Years [...] PM EDT Office Visit Adult Medicine [address] [phone] Fidel Davis MD [address] [place] [address] documented as of this encounter Visit Diagnoses Not on filedocumented in this encounter Additional Health Concerns Infection Onset Date Last Indicated Resolved Time VRE 03/02/2024 03/02/2024 ESBL 07/27/2024 07/27/2024 documented as of this encounter Care Teams Bar Host Relationship Specialty Start Date End Date Fidel Davis MD [address] [place] [phone] PCP - General Internal Medicine 10/19/24 documented as of this encounter
--- OUTSIDE RECORDS SUMMARY | 2024-12-22 13:30 | XMS_ITS | Encounter Summary ---
Author Organization [facility] Address [address] [place] [phone] Care Team Providers Care [employer] Division Manager Name Role Phone Fidel Davis MD Primary Care Provider [phone] Encounter Details Date Type Department Care Team (Late Contact Info) Description 11/04/2024 Lab Requisition [facility] - Main Lab 299 [facility] [place] [address] Steven Lopez MD [address] [place] [address], [phone] Acute combined systolic (congestive) and diastolic [...] 4:00 PM EDT Office Visit Adult Medicine [address] [phone] Fidel Davis MD [address] [place] [address] documented as of this encounter Procedures Procedure Name Priority Date/Time Associated Diagnosis Comments COMPLETE BLOOD COUNT Routine 11/07/2024 5:29 AM [...] encounter Results * (ABNORMAL) Basic metabolic panel (11/07/2024 5:29 AM EDT) Sodium 129(L) 133 - 145 mmol/L LAB CHEMISTRY METHOD 11/07/2024 1:[address] [facility] Potassium 5.0 3.5 - 5.5 mmol/L LAB CHEMISTRY METHOD 11/07/2024 1:[address] [facility] Chloride 96 96 - 110 mmol/L LAB CHEMISTRY METHOD 11/07/2024 1:[address] [facility] CO2 25 21 - 32 mmol/L LAB CHEMISTRY METHOD 11/07/2024 1:[address] [facility] Anion Gap 8 3 - 11 LAB CHEMISTRY METHOD 11/07/2024 1:[address] [facility] Glucose 68(L) 70 - 100 mg/dL LAB CHEMISTRY METHOD 11/07/2024 1:[address] [facility] BUN 26(H) 5 - 25 mg/dL LAB CHEMISTRY METHOD 11/07/2024 1:[address] [facility] Creatinine 1.00 0.70 - 1.30 mg/dL LAB CHEMISTRY METHOD 11/07/2024 1:[address] [facility] eGFR 78 >=60 mL/min/1. 73m2 LAB CHEMISTRY METHOD 11/07/2024 1:40 PM EDT [facility] Comment:Calculation based on the Chronic Kidney Disease Epidemiology Collaboration (CKD-EPI) equation refit without adjustment for race. BUN/Creatinine Ratio 26.0 LAB CHEMISTRY METHOD 11/07/2024 1:40 PM EDT [facility] Calcium 8.6 8.5 - 10.5 mg/dL LAB CHEMISTRY METHOD 11/07/2024 1:40 PM EDT [facility] Blood Venous blood specimen / Unknown Venipuncture / Unknown 11/07/2024 5:29 AM EDT 11/07/2024 10:38 AM EDT us Steven Lopez MD LAB BLOOD ORDERABLES Final Resul t [facility] [address] [place] [address], * (ABNORMAL) Complete blood count (11/07/2024 5:29 AM EDT) WBC 8.6 4.8 - 10.8 K/mcL LAB HEMETOLOGY METHOD 11/07/2024 11:[address] [facility] RBC 3.50(L) 4.50 - 5.50 M/mcL LAB HEMETOLOGY METHOD 11/07/2024 11:26 AM T [facility] Hemoglobin 10.2(L) 13.5 - 17.5 g/dL LAB HEMETOLOGY METHOD 11/07/2024 11:[address] [facility] Hematocrit 31.3(L) 42.0 - 54.0 % LAB HEMETOLOGY METHOD 11/07/2024 11:[address] [facility] MCV 89.4 79.0 - 98.0 FL LAB HEMETOLOGY METHOD 11/07/2024 11:26 AM T [facility] MCH 29.1 27.0 - 32.0 pcg LAB HEMETOLOGY METHOD 11/07/2024 11:26 AM EDT [facility] MCHC 32.6 32.0 - 37.0 g/dL LAB HEMETOLOGY METHOD 11/07/2024 11:26 AM EDT [facility] RDW 17.4(H) 11.0 - 15.0 % LAB HEMETOLOGY METHOD 11/07/2024 11:26 AM EDT [facility] Platelets 329 130 - 400 K/mcL LAB HEMETOLOGY METHOD 11/07/2024 11:26 AM EDT [facility] MPV 9.7 7.0 - 11.0 FL LAB HEMETOLOGY METHOD 11/07/2024 11:26 AM EDT [facility] NRBC 0.0 <1.0 % LAB HEMETOLOGY METHOD 11/07/2024 11:26 AM EDT [facility] NRBC Absolute 0.00 <0.10 K/mcL LAB HEMETOLOGY METHOD 11/07/2024 11:26 AM EDT [facility] Blood Venous blood specimen / Unknown Venipuncture / Unknown 11/07/2024 5:29 AM EDT 11/07/2024 10:38 AM EDT us Steven Lopez MD LAB BLOOD ORDERABLES Final Resul t [facility] [address] [place] [address], documented in this encounter Visit Diagnoses Diagnosis Acute combined systolic (congestive) and diastolic (congestive) heart failure (CMS/HCC V24, CMS/HCC V28) Acute respiratory failure with hypoxia (CMS/HCC V24, CMS/HCC V28) documented in this encounter Additional Health Concerns Infection Onset Date Last Indicated Resolved Time VRE 03/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
--- OUTSIDE RECORDS SUMMARY | 2024-12-22 13:30 | XMS_ITS | Encounter Summary ---
Author Organization [facility] Address [address] [place] [address] Care Team Providers Care Care Program Director Name Role Phone Fidel Davis MD Primary Care Provider [phone] Reason for Visit * Reason Onset Date Comments VNA 12/05/2024 Encounter Details Date Type Department Care Team (Late st Contact Info) Description 12/05/2024 Telephone Adult Medicine [address] [phone] Fidel Davis MD [address] [place] [address] Social History Tobacco Use Types Packs/Day Years [...] as of this encounter Progress Notes * Art Mcginnis LPN - 12/05/2024 3:07 PM EDT Spoke with VNA nurse Sampson she states the sacral wound has healed will apply Triade cream as a barrier Patient has a small skin tear on left elbow will wash with NS pat dry and cover with a foam dressing * Marlee Xiong - 12/05/2024 2:48 PM EDT VNA CALL Which [facility] office is calling? [facility] Full name of caller: Camilla The caller is A nurse Is the caller at the patients home?: no Reason for call: verbal orders for wound care Does caller need an urgent call back? 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
--- OUTSIDE RECORDS SUMMARY | 2024-12-22 13:30 | XMS_ITS | Encounter Summary ---
Author Organization [facility] Address [address] [place] [phone] Care Team Providers Care Timekeeping Supervisor Name Role Phone Fidel Davis MD Primary Care Provider Encounter Details Date Type Department Care Team (Late Contact Info) Description 02/11/2024 Lab Requisition [facility] - Main Lab 299 [facility] [place] [phone] Jono Mao MD [address] [place], [place] [id number] Pneumonia, unspecified organism Social History Tobacco Use Types Packs/Day Years [...] 4:00 PM EDT Office Visit Adult Medicine [address] [phone] Fidel Davis MD [address] [place] [address] documented as of this encounter Procedures Procedure Name Priority Date/Time Associated Diagnosis Comments COMPLETE BLOOD COUNT Routine 02/11/2024 5:26 AM EST Pneumonia, unspecified organism BASIC METABOLIC PANEL Routine 02/11/2024 5:26 AM EST Pneumonia, unspecified organism documented in this encounter Results * Basic metabolic panel (02/11/2024 5:26 AM EST) Sodium 138 133 - 145 mmol/L LAB CHEMISTRY METHOD 02/11/2024 11:[address] [facility] Potassium 4.5 3.5 - 5.5 mmol/L LAB CHEMISTRY METHOD 02/11/2024 11:[address] [facility] Chloride 103 96 - 110 mmol/L LAB CHEMISTRY METHOD 02/11/2024 11:[address] [facility] CO2 31 21 - 32 mmol/L LAB CHEMISTRY METHOD 02/11/2024 11:[address] [facility] Anion Gap 4 3 - 11 LAB CHEMISTRY METHOD 02/11/2024 11:[address] [facility] Glucose 97 70 - 100 mg/dL LAB CHEMISTRY METHOD 02/11/2024 11:[address] [facility] BUN 21 5 - 25 mg/dL LAB CHEMISTRY METHOD 02/11/2024 11:[address] [facility] Creatinine 1.13 0.70 - 1.30 mg/dL LAB CHEMISTRY METHOD 02/11/2024 11:[address] [facility] eGFR 68 >=60 mL/min/1. 73m2 LAB CHEMISTRY METHOD 02/11/2024 11:[address] [facility] Comment:Calculation based on the Chronic Kidney Disease Epidemiology Collaboration (CKD-EPI) equation refit without adjustment for race. BUN/Creatinine Ratio 18.6 LAB CHEMISTRY METHOD 02/11/2024 11:[address] [facility] Calcium 8.8 8.5 - 10.5 mg/dL LAB CHEMISTRY METHOD 02/11/2024 11:[address] [facility] Blood Venous blood specimen / Unknown Venipuncture / Unknown 02/11/2024 5:26 AM EST 02/11/2024 10:21 AM EST us Jono Mao MD LAB BLOOD ORDERABLES Final Resul t [facility] [address] [place] [address], [place] [phone] * (ABNORMAL) Complete blood count (02/11/2024 5:26 AM EST) WBC 7.4 4.8 - 10.8 K/mcL LAB HEMETOLOGY METHOD 02/11/2024 10:[address] [facility] RBC 3.20(L) 4.50 - 5.50 M/mcL LAB HEMETOLOGY METHOD 02/11/2024 10:[address] [facility] Hemoglobin 10.2(L) 13.5 - 17.5 g/dL LAB HEMETOLOGY METHOD 02/11/2024 10:[address] [facility] Hematocrit 31.7(L) 42.0 - 54.0 % LAB HEMETOLOGY METHOD 02/11/2024 10:[address] [facility] MCV 98.8(H) 79.0 - 98.0 FL LAB HEMETOLOGY METHOD 02/11/2024 10:[address] [facility] MCH 31.8 27.0 - 32.0 pcg LAB HEMETOLOGY METHOD 02/11/2024 10:[address] [facility] MCHC 32.2 32.0 - 37.0 g/dL LAB HEMETOLOGY METHOD 02/11/2024 10:[address] [facility] RDW 14.5 11.0 - 15.0 % LAB HEMETOLOGY METHOD 02/11/2024 10:[address] [facility] Platelets 420(H) 130 - 400 K/mcL LAB HEMETOLOGY METHOD 02/11/2024 10:[address] [facility] MPV 10.6 7.0 - 11.0 FL LAB HEMETOLOGY METHOD 02/11/2024 10:56 AM EST [facility] NRBC 0.0 <1.0 % LAB HEMETOLOGY METHOD 02/11/2024 10:56 AM EST [facility] NRBC Absolute 0.00 <0.10 K/mcL LAB HEMETOLOGY METHOD 02/11/2024 10:56 AM EST [facility] Blood Venous blood specimen / Unknown Venipuncture / Unknown 02/11/2024 5:26 AM EST 02/11/2024 10:21 AM EST us Jono Mao MD LAB BLOOD ORDERABLES Final Resul t [facility] [address] [phone] documented in this encounter Visit Diagnoses Diagnosis Pneumonia, unspecified organism documented in this encounter Additional Health Concerns Infection Onset Date Last Indicated Resolved Time 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
--- OUTSIDE RECORDS SUMMARY | 2024-12-22 13:31 | XMS_ITS | Encounter Summary ---
Author Organization [facility] Address [address] [place] [address] Care Team Providers Care Electric Well Logging Operator Name Role Phone Fidel Davis MD Primary Care Provider [phone] Reason for Visit * Reason Onset Date Comments Results 12/09/2024 Encounter Details Date Type Department Care Team (Late Contact Info) Description 12/09/[address] [phone] Fidel Davis MD [address] [place] [address] Social History Tobacco Use Types Packs/Day Years [...] as of this encounter Progress Notes * Helio Eisenberg - 12/09/2024 1:59 PM EDT Call from provider @ [facility] - [phone] Call stating that patient had lab done and states that the result was a high INR level , states that patient's INR was 3.6 , would like to speak to provider or nurse documented in this encounter Plan of Treatment Upcoming Encounters Date Type Department Care Team (Late st Contact Info) Description 05/23/2025 4:00 PM EDT Office Visit Adult Medicine [facility] [address] [place] [address] Fidel Davis MD [address] [place] [address] documented as of this encounter Visit Diagnoses Not on filedocumented in this encounter Additional Health Concerns Infection Onset Date Last Indicated Resolved Time 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
--- OUTSIDE RECORDS SUMMARY | 2024-12-22 13:31 | XMS_ITS | Encounter Summary ---
Author Organization [facility] Address [address] [place] [address] Care Team Providers Care News Internship Name Role Phone Fidel Davis MD Primary Care Provider [phone] Encounter Details Date Type Department Care Team (Late Contact Info) Description 02/21/2024 Lab Requisition [facility] - Main Lab [address] [facility] [place] [phone] Jono Mao MD [address] [place], [place] [id number] Respiratory disorder, unspecified Social History Tobacco Use Types Packs/Day Years [...] 4:00 PM EDT Office Visit Adult Medicine [address] [phone] Fidel Davis MD [address] [place] [address] documented as of this encounter Procedures Procedure Name Priority Date/Time Associated Diagnosis Comments COMPLETE BLOOD COUNT Routine 02/22/2024 5:31 AM EST Respiratory disorder, unspecified BASIC METABOLIC PANEL Routine 02/22/2024 5:31 AM EST Respiratory disorder, unspecified documented in this encounter Results * (ABNORMAL) Basic metabolic panel (02/22/2024 5:31 AM EST) Sodium 137 133 - 145 mmol/L LAB CHEMISTRY METHOD 02/22/2024 2:20 PM [facility] Potassium 5.0 3.5 - 5.5 mmol/L LAB CHEMISTRY METHOD 02/22/2024 2:20 PM [facility] Chloride 104 96 - 110 mmol/L LAB CHEMISTRY METHOD 02/22/2024 2:20 PM [facility] CO2 31 21 - 32 mmol/L LAB CHEMISTRY METHOD 02/22/2024 2:20 PM [facility] Anion Gap 2(L) 3 - 11 LAB CHEMISTRY METHOD 02/22/2024 2:20 PM [facility] Glucose 88 70 - 100 mg/dL LAB CHEMISTRY METHOD 02/22/2024 2:20 PM [facility] BUN 16 5 - 25 mg/dL LAB CHEMISTRY METHOD 02/22/2024 2:20 PM [facility] Creatinine 1.17 0.70 - 1.30 mg/dL LAB CHEMISTRY METHOD 02/22/2024 2:20 PM [facility] eGFR 65 >=60 mL/min/1. 73m2 LAB CHEMISTRY METHOD 02/22/2024 2:20 PM [facility] Comment:Calculation based on the Chronic Kidney Disease Epidemiology Collaboration (CKD-EPI) equation refit without adjustment for race. BUN/Creatinine Ratio 13.7 LAB CHEMISTRY METHOD 02/22/2024 2:20 PM [facility] Calcium 8.6 8.5 - 10.5 mg/dL LAB CHEMISTRY METHOD 02/22/2024 2:20 PM [facility] Blood Venous blood specimen / Unknown Venipuncture / Unknown 02/22/2024 5:31 AM EST 02/22/2024 11:22 AM EST us Jono Mao MD LAB BLOOD ORDERABLES Final Resul t [facility] [address] [place] [address], [place] [phone] * (ABNORMAL) Complete blood count (02/22/2024 5:31 AM EST) WBC 9.1 4.8 - 10.8 K/mcL LAB HEMETOLOGY METHOD 02/22/2024 1:02 PM [facility] RBC 3.50(L) 4.50 - 5.50 M/mcL LAB HEMETOLOGY METHOD 02/22/2024 1:02 PM [facility] Hemoglobin 11.0(L) 13.5 - 17.5 g/dL LAB HEMETOLOGY METHOD 02/22/2024 1:02 PM [facility] Hematocrit 35.4(L) 42.0 - 54.0 % LAB HEMETOLOGY METHOD 02/22/2024 1:02 PM [facility] MCV 102.0(H) 79.0 - 98.0 FL LAB HEMETOLOGY METHOD 02/22/2024 1:02 PM [facility] MCH 31.7 27.0 - 32.0 pcg LAB HEMETOLOGY METHOD 02/22/2024 1:02 PM [facility] MCHC 31.1(L) 32.0 - 37.0 g/dL LAB HEMETOLOGY METHOD 02/22/2024 1:02 PM [facility] RDW 15.2(H) 11.0 - 15.0 % LAB HEMETOLOGY METHOD 02/22/2024 1:02 PM [facility] Platelets 327 130 - 400 K/mcL LAB HEMETOLOGY METHOD 02/22/2024 1:02 PM EST [facility] MPV 10.6 7.0 - 11.0 FL LAB HEMETOLOGY METHOD 02/22/2024 1:02 PM EST [facility] NRBC 0.0 <1.0 % LAB HEMETOLOGY METHOD 02/22/2024 1:02 PM EST [facility] NRBC Absolute 0.00 <0.10 K/mcL LAB HEMETOLOGY METHOD 02/22/2024 1:02 PM EST [facility] Blood Venous blood specimen / Unknown Venipuncture / Unknown 02/22/2024 5:31 AM EST 02/22/2024 11:22 AM EST us Jono Mao MD LAB BLOOD ORDERABLES Final Resul t [facility] [address] [place] [address], documented in this encounter Visit Diagnoses Diagnosis Respiratory disorder, unspecified documented in this encounter Additional Health Concerns Infection Onset Date Last Indicated Resolved Time 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
--- OUTSIDE RECORDS SUMMARY | 2024-12-22 13:31 | XMS_ITS | Encounter Summary ---
Author Organization Address [address] [place] [address] Care Team Providers Care Grain Mixer Name Role Phone Fidel Davis MD Primary Care Provider [phone] Reason for Visit * Reason Onset Date Comments Medication Problem 12/13/2024 Encounter Details Date Type Department Care Team ([facility] st Contact Info) Description 12/13/2024 Telephone Adult Medicine [address] [phone] Fidel Davis MD [address] [place] [address] Social History Tobacco Use Types Packs/Day Years [...] as of this encounter Progress Notes * Yarelis Caceres - 12/13/2024 8:52 AM EDT Medication Problem: What is the name of the medication patient is having a problem with?: All meds from us What is the problem?: alf wants to be sure all prescriptions are sent to [place] with refills.They do not want to keep calling every 30 days. Please review meds. Who is calling about the problem? : [facility] Is this a NEW medication?: no How long has the patient been taking this medication? ongoing Who prescribed this medication for the patient? 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
--- OUTSIDE RECORDS SUMMARY | 2024-12-22 13:31 | XMS_ITS ---
Author Name [facility] Organization Unknown Care Team Organization Name Specialty Phone Email Start Date End [facility] 10/19/2024
--- OUTSIDE RECORDS SUMMARY | 2024-12-22 13:31 | XMS_ITS | Encounter Summary ---
Author Organization [facility] Address [address] [place] [address] Care Team Providers Care Electrode Cleaner Name Role Phone Fidel Davis MD Primary Care Provider [phone] Encounter Details Date Type Department Care Team (Late Contact Info) Description 02/18/2024 Lab Requisition [facility] - Main Lab [address] [facility] [place] [phone] Jono Mao MD [address] [place], [place] [id number] Pneumonia, unspecified organism Social History Tobacco Use [...] PM EDT Office Visit Adult Medicine [address] [phone] Fidel Davis MD [address] [place] [address] documented as of this encounter Procedures Procedure Name Priority Date/Time Associated Diagnosis Comments BASIC METABOLIC PANEL Routine 02/18/2024 5:42 AM EST Pneumonia, unspecified organism documented in this encounter Results * Basic metabolic panel (02/18/2024 5:42 AM EST) Sodium 138 133 - 145 mmol/L LAB CHEMISTRY METHOD 02/18/2024 10:40 AM [facility] Potassium 5.1 3.5 - 5.5 mmol/L LAB CHEMISTRY METHOD 02/18/2024 10:40 AM [facility] Chloride 102 96 - 110 mmol/L LAB CHEMISTRY METHOD 02/18/2024 10:40 AM [facility] CO2 30 21 - 32 mmol/L LAB CHEMISTRY METHOD 02/18/2024 10:40 AM [facility] Anion Gap 6 3 - 11 LAB CHEMISTRY METHOD 02/18/2024 10:40 AM [facility] Glucose 83 70 - 100 mg/dL LAB CHEMISTRY METHOD 02/18/2024 10:40 AM [facility] BUN 16 5 - 25 mg/dL LAB CHEMISTRY METHOD 02/18/2024 10:40 AM [facility] Creatinine 1.17 0.70 - 1.30 mg/dL LAB CHEMISTRY METHOD 02/18/2024 10:40 AM [facility] eGFR 65 >=60 mL/min/1. 73m2 LAB CHEMISTRY METHOD 02/18/2024 10:40 AM [facility] Comment:Calculation based on the Chronic Kidney Disease Epidemiology Collaboration (CKD-EPI) equation refit without adjustment for race. BUN/Creatinine Ratio 13.7 LAB CHEMISTRY METHOD 02/18/2024 10:40 AM [facility] Calcium 9.0 8.5 - 10.5 mg/dL LAB CHEMISTRY METHOD 02/18/2024 10:40 AM [facility] Blood Venous blood specimen / Unknown Venipuncture / Unknown 02/18/2024 5:42 AM EST 02/18/2024 9:54 AM EST Jono Mao MD LAB BLOOD ORDERABLES Final Resul t [email or web address] [address] [place] [address], documented in this encounter Visit Diagnoses Diagnosis Pneumonia, unspecified organism documented in this encounter Additional Health Concerns Infection Onset Date Last Indicated Resolved Time 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
--- OUTSIDE RECORDS SUMMARY | 2024-12-22 13:31 | XMS_ITS | Encounter Summary ---
Author Organization [facility] Address [address] [place] [address] Care Team Providers Care Albacore Fishing Boat Crewman Name Role Phone Fidel Davis MD Primary Care Provider [phone] Encounter Details Date Type Department Care Team (Late Contact Info) Description 02/12/2024 Lab Requisition [facility] - Main Lab [address] [facility] [place] [phone] Jono Mao MD [address] [place] [address] Respiratory failure, unspecified, unspecified whether with hypoxia [...] PM EDT Office Visit Adult Medicine [address] [phone] Fidel Davis MD [address] [place] [phone] documented as of this encounter Procedures Procedure Name Priority Date/Time Associated Diagnosis Comments COMPLETE BLOOD COUNT Routine 02/15/2024 5:16 AM EST Respiratory failure, unspecified, unspecified whether with hypoxia or hypercapnia (CMS/HCC) BASIC METABOLIC PANEL Routine 02/15/2024 5:16 AM EST Respiratory failure, unspecified, unspecified whether with hypoxia or hypercapnia (CMS/HCC) documented in this encounter Results * (ABNORMAL) Basic metabolic panel (02/15/2024 5:16 AM EST) Pathologist [facility] Sodium 137 133 - 145 mmol/L LAB CHEMISTRY METHOD 02/15/2024 3:18 PM [facility] Potassium 5.1 3.5 - 5.5 mmol/L LAB CHEMISTRY METHOD 02/15/2024 3:18 PM [facility] Chloride 100 96 - 110 mmol/L LAB CHEMISTRY METHOD 02/15/2024 3:18 PM [facility] CO2 31 21 - 32 mmol/L LAB CHEMISTRY METHOD 02/15/2024 3:18 PM [facility] Anion Gap 6 3 - 11 LAB CHEMISTRY METHOD 02/15/2024 3:18 PM [facility] Glucose 94 70 - 100 mg/dL LAB CHEMISTRY METHOD 02/15/2024 3:18 PM [facility] BUN 14 5 - 25 mg/dL LAB CHEMISTRY METHOD 02/15/2024 3:18 PM [facility] Creatinine 1.31(H) 0.70 - 1.30 mg/dL LAB CHEMISTRY METHOD 02/15/2024 3:18 PM [facility] eGFR 57(L) >=60 mL/min/1. 73m2 LAB CHEMISTRY METHOD 02/15/2024 3:18 PM [facility] Comment:Calculation based on the Chronic Kidney Disease Epidemiology Collaboration (CKD-EPI) equation refit without adjustment for race. BUN/Creatinine Ratio 10.7 LAB CHEMISTRY METHOD 02/15/2024 3:18 PM [facility] Calcium 9.1 8.5 - 10.5 mg/dL LAB CHEMISTRY METHOD 02/15/2024 3:18 PM [facility] Blood Venous blood specimen / Unknown Venipuncture / Unknown 02/15/2024 5:16 AM EST 02/15/2024 11:29 AM EST us Jono Mao MD LAB BLOOD ORDERABLES Final Resul t [facility] [address] [place] [address], [place] [phone] * (ABNORMAL) Complete blood count (02/15/2024 5:16 AM EST) WBC 7.5 4.8 - 10.8 K/mcL LAB HEMETOLOGY METHOD 02/15/2024 11:59 AM [facility] RBC 3.50(L) 4.50 - 5.50 M/mcL LAB HEMETOLOGY METHOD 02/15/2024 11:59 AM [facility] Hemoglobin 10.9(L) 13.5 - 17.5 g/dL LAB HEMETOLOGY METHOD 02/15/2024 11:59 AM [facility] Hematocrit 34.6(L) 42.0 - 54.0 % LAB HEMETOLOGY METHOD 02/15/2024 11:59 AM [facility] MCV 100.0(H) 79.0 - 98.0 FL LAB HEMETOLOGY METHOD 02/15/2024 11:59 AM [facility] MCH 31.5 27.0 - 32.0 pcg LAB HEMETOLOGY METHOD 02/15/2024 11:59 AM [facility] MCHC 31.5(L) 32.0 - 37.0 g/dL LAB HEMETOLOGY METHOD 02/15/2024 11:59 AM [facility] RDW 14.6 11.0 - 15.0 % LAB HEMETOLOGY METHOD 02/15/2024 11:59 AM EST [facility] Platelets 460(H) 130 - 400 K/mcL LAB HEMETOLOGY METHOD 02/15/2024 11:59 AM EST [facility] MPV 10.2 7.0 - 11.0 FL LAB HEMETOLOGY METHOD 02/15/2024 11:59 AM EST [facility] NRBC 0.0 <1.0 % LAB HEMETOLOGY METHOD 02/15/2024 11:59 AM EST [facility] NRBC Absolute 0.00 <0.10 K/mcL LAB HEMETOLOGY METHOD 02/15/2024 11:59 AM [facility] Blood Venous blood specimen / Unknown Venipuncture / Unknown 02/15/2024 5:16 AM EST 02/15/2024 11:29 AM EST us Jono Mao MD LAB BLOOD ORDERABLES Final Resul t [facility] [address] [place] [address], documented in this encounter Visit Diagnoses Diagnosis Respiratory failure, unspecified, unspecified whether with hypoxia or hypercapnia (CMS/HCC V24, CMS/HCC V28) documented in this encounter Additional Health Concerns Infection Onset Date Last Indicated Resolved Time 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
--- OUTSIDE RECORDS SUMMARY | 2024-12-22 13:31 | XMS_ITS | Encounter Summary ---
Author Organization [facility] Address [address] [place] [address] Care Team Providers Care Investigator Narcotics Name Role Phone Fidel Davis MD Primary Care Provider [phone] Reason for Visit * Reason Comments home health cert Encounter Details Date Type Department Care Team (Late Contact Info) Description 12/21/2024 Billing Patient Not Present Adult [address] [phone] Fidel Davis MD [address] [place] [address] Social History Tobacco Use Types Packs/Day Years [...] Progress Notes * Wendi Beatty MA - 12/21/2024 2:17 PM EDT [facility] Health cert/POC Order # [id number] received,signed by provider,scanned and faxed. 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
--- OUTSIDE RECORDS SUMMARY | 2024-12-22 13:31 | XMS_ITS | Encounter Summary ---
Author Organization [facility] Address [address] [place] [address] Care Team Providers Care Crts Name Role Phone Fidel Davis MD Primary Care Provider [phone] Reason for Visit * Reason Onset Date Comments [facility]NA 12/15/2024 Encounter Details Date Type Department Care Team (Late st Contact Info) Description 12/15/2024 Telephone Adult Medicine [address] [phone] Trini Mcgregor MA Social History Tobacco Use Types Packs/Day [...] Refills Last Filled Start Date End Date collagenase (SantyL) 250 unit/gram ointment Apply topically 3 (three) times a week. 120 g 2 12/16/2024 documented in this encounter Progress Notes * Art Mcginnis LPN - 12/19/2024 10:02 AM EDT VO given to Christy * Fidel Davis MD - 12/16/2024 5:53 PM EDT Can we give a vo for the wound care Rx for Santyl sent * Art Mcginnis LPN - 12/16/2024 12:53 PM EDT 2 nd request See [facility]NA message below * Art Mcginnis LPN - 12/15/2024 4:37 PM EDT Patient has a small open area on the bottom of left foot requesting Rx be sent to pharmacy for Santyl Nurse will do wound care 3 x's a week Please send response to nurse triage [facility] * Trini Mcgregor MA - 12/15/2024 4:25 PM EDT [facility]NA CALL Which [facility] office is calling? [facility] / Full name of caller: CHRISTY Tee The caller is A nurse Is the caller at the patients home?: no Reason for call: WOUND ON THE BOTTOM OF HIS LEFT FOOT CAN HE HAVE A RX FOR SANYTL? THEY WILL BE IN 3 TIMES PER WEEK TO MANAGE WOUND CARE. Does caller need an urgent call back? 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
== END 2024-12-22 11:42 | disposition home or self-care (01) ==
LOC: HO.HCS 10:55
PROVIDERS: PCP Internal Medicine; Visit Provider Internal Medicine
DX: I25.5 Ischemic cardiomyopathy (principal); I25.10 Atherosclerotic heart disease of native coronary artery without angina pectoris; I48.0 Paroxysmal atrial fibrillation; I46.9 Cardiac arrest, cause unspecified; I51.3 Intracardiac thrombosis, not elsewhere classified; I49.3 Ventricular premature depolarization
CPT/HCPCS: 93010; 99215; G2211

== ENCOUNTER → 2024-12-22 10:54 | Outpatient (BNVA) | payer MEDICARE, MEDICAID, SELFPAY | PROVIDERS: PCP Internal Medicine; Visit Provider Internal Medicine | DX: I25.5 Ischemic cardiomyopathy (principal); I51.3 Intracardiac thrombosis, not elsewhere classified; I48.0 Paroxysmal atrial fibrillation; I46.9 Cardiac arrest, cause unspecified; E78.5 Hyperlipidemia, unspecified; Z79.01 Long term (current) use of anticoagulants; I11.0 Hypertensive heart disease with heart failure | CPT/HCPCS: 93005; 99212 ==